=== PATIENT | female | born 1945 | race Caucasian/White ===

== ENCOUNTER → 2016-07-16 | Outpatient (CLI) | payer BC ==
[2016-07-16 10:33] LABS: BLOOD UREA NITROGEN 20 mg/dl (7-18); BUN/CREATININE RATIO 23.4 (10-20); CALCIUM 9.2 mg/dl (8.5-10.1); CARBON DIOXIDE 24 mmol/L (21-32); CHLORIDE 106 mmol/L (98-107); CREATININE 0.86 mg/dl (0.60-1.20); GLUCOSE 93 mg/dl (70-99); POTASSIUM 3.9 mmol/L (3.5-5.1); SODIUM 140 mmol/L (136-145)
[2016-07-16 10:37] LABS: CHOLESTEROL 239 mg/dl (0-200); HDL CHOLESTEROL 81 mg/dl; LDL CHOLESTEROL CALCULATED 139 mg/dl; TRIGLYCERIDES 96 mg/dl (0-150); VERY LOW DENSITY LIPOPROT CALC 19 mg/dl
== END | disposition home or self-care (01) ==
LOC: C.LAB1850 08:52
PROVIDERS: ATTEND Family Medicine
DX: E88.81 Metabolic syndrome and other insulin resistance (principal); I10 Essential (primary) hypertension; E55.9 Vitamin D deficiency, unspecified; Z11.59 Encounter for screening for other viral diseases

== ENCOUNTER → 2017-08-04 | Outpatient (CLI) | payer BC ==
[2017-08-04 11:06] LABS: BLOOD UREA NITROGEN 25 mg/dl (7-18); CALCIUM 9.4 mg/dl (8.5-10.1); CARBON DIOXIDE 25 mmol/L (21-32); GLUCOSE 92 mg/dl (70-99); POTASSIUM 3.9 mmol/L (3.5-5.1); SODIUM 137 mmol/L (136-145)
[2017-08-04 11:10] LABS: ALT/SGPT 17 U/L (12-78); CHOLESTEROL 246 mg/dl (0-200); LDL CHOLESTEROL CALCULATED 160 mg/dl
[2017-08-04 12:46] LABS: HEMOGLOBIN A1C 5.3 % (4.5-5.6)
== END | disposition home or self-care (01) ==
LOC: C.LAB1850 09:14
PROVIDERS: ATTEND Family Medicine
DX: E78.5 Hyperlipidemia, unspecified (principal); E88.81 Metabolic syndrome and other insulin resistance; I10 Essential (primary) hypertension

== ENCOUNTER → 2018-02-03 | Outpatient (CLI) | payer BC ==
[2018-02-03 10:41] LABS: ALT/SGPT 19 U/L (12-78); BLOOD UREA NITROGEN 24 mg/dl (7-18); CALCIUM 9.1 mg/dl (8.5-10.1); CARBON DIOXIDE 22 mmol/L (21-32); CHOLESTEROL 206 mg/dl (0-200); CREATININE 0.86 mg/dl (0.60-1.20); GLUCOSE 94 mg/dl (70-99); LDL CHOLESTEROL CALCULATED 122 mg/dl; SODIUM 140 mmol/L (136-145)
[2018-02-03 10:43] LABS: HEMOGLOBIN A1C 5.4 % (4.5-5.6)
== END | disposition home or self-care (01) ==
LOC: C.LAB1850 09:03
PROVIDERS: ATTEND Family Medicine
DX: E88.81 Metabolic syndrome and other insulin resistance (principal); I10 Essential (primary) hypertension; E78.5 Hyperlipidemia, unspecified; E55.9 Vitamin D deficiency, unspecified

== ENCOUNTER → 2018-02-07 | Outpatient (CLI) | payer BC | END | disposition home or self-care (01) | LOC: C.LABSPEC 11:36 | PROVIDERS: ATTEND Family Medicine | DX: R35.0 Frequency of micturition (principal) ==

== ENCOUNTER → 2018-02-15 | Outpatient (CLI) | payer BC | END | disposition home or self-care (01) | LOC: C.MAMM 08:49 | PROVIDERS: ATTEND Family Medicine | DX: Z78.0 Asymptomatic menopausal state (principal) ==

== ENCOUNTER 2020-12-13 08:51 | Observation (INO) ==
--- NOTE | 2020-11-22 10:09 | PAT Medication Instructions ---
Medication Instructions Date of Service November 22, 2020 Home Medications Medication Instructions Recorded metformin 500 mg tablet 500 mg PO BID #180 tab 03/26/20 calcium carbonate 500 mg (1,250 mg)-vitamin D3 400 unit tablet 1 tab PO BID cholecalciferol (vitamin D3) 125 mcg (5,000 unit) tablet 5,000 units PO QAM metformin 500 mg tablet 500 mg PO BID acetaminophen [Tylenol Extra Strength] 1,000 mg PO Q6H PRN atenolol 50 mg PO QAM lisinopril 40 mg PO QAM naproxen sodium [Aleve] 220 mg PO Q8H PRN ASK your surgeon for instructions naproxen sodium [Aleve] 220 mg PO Q8H PRN DO NOT take the morning of surgery calcium carbonate 500 mg (1,250 mg)-vitamin D3 400 unit tablet 1 tab PO BID cholecalciferol (vitamin D3) 125 mcg (5,000 unit) tablet 5,000 units PO QAM metformin 500 mg tablet 500 mg PO BID lisinopril 40 mg PO QAM Take morning of surgery With a small sip of water, OTHERWISE NOTHING TO EAT OR DRINK AFTER MIDNIGHT: acetaminophen [Tylenol Extra Strength] 1,000 mg PO Q6H PRN(okay to take up to 4 hours prior to surgery if needed) atenolol 50 mg PO QAM Take evening before surgery calcium carbonate 500 mg (1,250 mg)-vitamin D3 400 unit tablet 1 tab PO BID metformin 500 mg tablet 500 mg PO BID acetaminophen [Tylenol Extra Strength] 1,000 mg PO Q6H PRN (if needed) Other Notes If you have any questions please call us at [phone] or [phone] or [phone] or [phone]
--- NOTE | 2020-11-25 09:04 | Anesthesiology Consultation ---
Date of Service November 25, 2020 Assessment & Plan (1) Encounter for pre-operative examination: - COVID screening: Per assessment on 11/25: Travel screen negative, no known COVID-19 positive contacts or current COVID-19 related symptoms. Patient fully vaccinated. Surgeon arranging preop COVID testing. Awaiting results. - Possible difficult intubation: due to anatomy Chart Review Chart Review: Acceptable Risk for Surgery and Patient seen in Pre Admission Testing Teaching & Discussion Pre-Anesthesia Teaching/Discussion Notes: Instructed NPO after midnight before surgery,except medications with 15 cc of water. Medication instructions provided according to the PAT guidelines. History Surgery Operation Date: 12/13/20 13:00 Proposed Procedures p Right Total Knee Replacement(Right) - Rigo Mo, Height/Weight Height: 5 ft 3 in Weight: 88.4 kg Allergies Allergy/AdvReac Type Severity Reaction Status Date / Time Sulfa (Sulfonamide Allergy Unknown Hives Verified 11/20/20 10:55 Antibiotics) triamterene Allergy Unknown Unknown Verified 11/20/20 10:55 hydrochlorothiazide AdvReac Unknown Disorientat Verified 11/25/20 09:03 [From Dyazide] ion Medications Home Medications Medication Instructions Recorded Confirmed Last Taken calcium carbonate 500 mg (1,250 1 tab PO BID tab 03/08/19 11/20/20 Unknown mg)-vitamin D3 400 unit tablet cholecalciferol (vitamin D3) 125 5,000 units PO QAM tab 03/08/19 11/20/20 Unknown mcg (5,000 unit) tablet metformin 500 mg tablet 500 mg PO BID #180 tab 03/26/20 11/20/20 Unknown acetaminophen [Tylenol Extra 1,000 mg PO Q6H PRN 11/20/20 11/20/20 Unknown Strength] atenolol 50 mg PO QAM 11/20/20 11/20/20 Unknown lisinopril 40 mg PO QAM 11/20/20 11/20/20 Unknown naproxen sodium [Aleve] 220 mg PO Q8H PRN 11/20/20 11/20/20 Unknown Past Medical History Medical History Arthritis Cancer Right breast (1991) DVT (deep venous thrombosis) S/P childbirth 50 years ago, no issues since Dysmetabolic syndrome X Reason for Metformin per PCP Hypertension Obesity Exercise / Class Metabolic Activity II 4-5 Yardwork/Stairs/Walk up hill (one flight of stairs (no chest pain, no sob)) Past Family History Family History Mother Cardiac disorder Myocardial infarction Father Myocardial infarction Sister Hypertension Denies family history of Colon cancer Ovarian cancer Prostate cancer Breast cancer Past Surgical History Surgical History H/O abdominal hysterectomy H/O lumpectomy History of hip replacement R/L (x5 total procedures) History of lumpectomy of right breast Hx of appendectomy Hx of tonsillectomy Hx of total knee arthroplasty Left Past Anesthesia History No Hx of Anesthesia Complications and No Family Hx of Anesthesia Complications History of PONV No Hx of PONV and No Hx of Motion Sickness Social History Smoking Status: Never smoker Do You Dip or Chew Tobacco: No Hx Alcohol Use: No Hx Substance Use: No Review of Systems Patient denies chest pain, shortness of breath, dyspnea on exertion, fever, chills, cough, wheezing, palpitations. Physical Exam Vital Signs VITALS BP 179/90 > 148/84 on manual recheck. Patient states BP typically in the range of 130s/80s. Advised to monitor and contact PCP if persistently elevated. P 64 TEMP 98.0 SP02 97%RA RESP 16 PHYSICAL Full cervical extension range of motion. Full TMJ range of motion. TMD 2 finger breaths (small chin) Mallampati Score 4 (small oral opening) Dentition: intact, several crowns Lungs: clear throughout to auscultation Cardiac: regular rate and rhythm with occasional extra beat, no murmurs noted Spine: normal Carotid arteries: negative bruit Extremities: no edema Testing Laboratory Results 11/25/20 09:37 11/25/20 09:37 PT 9.9 Seconds (9.0-12.0) 11/25/20 09:37 INR 1.0 (0.9-1.1) 11/25/20 09:37 APTT 22.5 Seconds (21.0-31.0) 11/25/20 09:37 Blood Type A Positive 11/25/20 09:37 Antibody Screen NEGATIVE 11/25/20 09:37 Electrocardiogram Date: 11/25/20 Normal sinus rhythm at 75 bpm. LAD. Moderate voltage criteria for LVH, may be normal variant. Nonspecific ST abnormality. No significant change compared to 11/20/2005 per reports analysis manager review. Chest X-Ray Date: 11/25/20 FINDINGS: PA and lateral chest radiographs are compared to study dated 11/20/2005. The cardiomediastinal silhouette is unremarkable noting atherosclerotic calcification of the thoracic aorta. There is elevation of the right hemidiaphragm with associated right basilar atelectasis. Chronic interstitial thickening is similar to previous. No airspace consolidation or pleural effusion is identified. There is no pneumothorax. The skeletal structures are osteopenic. There are healed right-sided rib fractures. Degenerative change is noted in the shoulders and thoracic spine. Surgical clips are noted in the right axilla. IMPRESSION: No active disease in the chest.
[2020-11-25 10:34] LABS: Basophils # (auto) 0.02 K/uL (0-0.2); Basophils % (auto) 0.3 %; Eosinophils # (auto) 0.09 K/uL (0-0.5); Eosinophils % (auto) 1.2 %; Hematocrit (blood only) 36.8 % (37-47); Hemoglobin 12.2 g/dL (12.0-16.0); Immature Granulocytes # (auto) 0.01 K/uL (0.00-0.02); Immature Granulocytes % (auto) 0.1 %; Lymphocytes # (auto) 1.76 K/uL (1.2-3.4); Lymphocytes % (auto) 22.7 %; Mean Corpuscular Hemoglobin 31.6 pg (25-34); Mean Corpuscular Hgb Conc 33.2 g/dL (32-36); Mean Corpuscular Volume 95.3 fL (80-100); Mean Platelet Volume 11.8 fL (7.4-10.4); Monocytes % (auto) 5.2 %; Neutrophils # (auto) 5.47 K/uL (1.4-6.5); Neutrophils % (auto) 70.5 %; Platelet Count 189 K/uL (130-400); RDW Coefficient of Variation 13.7 % (11.5-14.5); RDW Standard Deviation 46.7 fL (36.4-46.3); Red Blood Count 3.86 M/uL (4.2-5.4); White Blood Count 7.75 K/uL (4.8-10.8)
[2020-11-25 10:42] LABS: Partial Thromboplastin Ratio 0.9; Partial Thromboplastin Time 22.5 Seconds (21.0-31.0); Prothrombin Time 9.9 Seconds (9.0-12.0)
--- NOTE | 2020-11-25 11:01 | XRay Report ---
TWO VIEW CHEST CLINICAL HISTORY: Preoperative examination. Reported history of hypertension. FINDINGS: PA and lateral chest radiographs are compared to study dated 11/20/2005. The cardiomediastin al silhouette is unremarkable noting atherosclerotic calcification of the thoracic aorta. There is el evation of the right hemidiaphragm with associated right basilar atelectasis. Chronic interstitial th ickening is similar to previous. No airspace consolidation or pleural effusion is identified. There i s no pneumothorax. The skeletal structures are osteopenic. There are healed right-sided rib fractures . Degenerative change is noted in the shoulders and thoracic spine. Surgical clips are noted in the r ight axilla. IMPRESSION: No active disease in the chest. ACT 112: Negative or not required by law. Electronically signed by: José Ghotra M.D. 11/25/2020 11:00 AM
[2020-11-25 11:27] LABS: BUN Creatinine Ratio 20.4 (10-20); Calcium 9.2 mg/dl (8.5-10.1); Creatinine Clr Calc Pharmacy 51.8 ml/min; Est GFR (African American) 64.6 ml/min; Est GFR (Non-African American) 55.7 ml/min; Potassium 3.8 mmol/L (3.5-5.1)
--- NOTE | 2020-11-25 18:01 | Electrocardiogram Report ---
Test Reason : Blood Pressure : / mmHG Vent. Rate : 075 BPM Atrial Rate : 075 BPM P-R Int : 140 ms QRS Dur : 090 ms QT Int : 428 ms P-R-T Axes : 054 -34 045 degrees QTc Int : 477 ms Normal sinus rhythm Left axis deviation Moderate voltage criteria for LVH, may be normal variant Nonspecific ST abnormality Abnormal ECG When compared with ECG of 20-NOV-2005 13:08, No significant change was found Confirmed by Jose Ramon Lau ([id number]) on 11/25/2020 6:01:28 PM Referred By: Rigo Mo Confirmed By:Filiberto Lau
--- NOTE | 2020-12-12 07:04 | History & Physical Report ---
Date of Service December 12, 2020 Assessment & Plan (1) Osteoarthritis of right knee: We will proceed with a right total knee arthroplasty. Postoperatively she will be kept overnight in the hospital for postoperative medical management. She will be started on aspirin for DVT prophylaxis. She plans to use energy physical therapy upon discharge. History of Present Illness Chief Complaint: Osteoarthritis of the right knee. Primary Care Provider: Antonia Sue MD Mell is a pleasant 74-year-old female who is been ill with a several year h istory of increasing right knee pain. She ambulates with a cane and a very antalgic gait because of her knee. She has a history of 5 hip procedures done on both hips. She has a history of a left knee replacement done by Dr. Heredia in 2005 and has done very well with that. Unfortunately her right knee is really bothering her. X-rays show advanced osteoarthritis of the right knee. After failing conservative treatment, she has elected to proceed with a right total knee arthroplasty.. Allergies Allergy/AdvReac Type Severity Reaction Status Date / Time Sulfa (Sulfonamide Allergy Unknown Hives Verified 11/20/20 10:55 Antibiotics) triamterene Allergy Unknown Unknown Verified 11/20/20 10:55 hydrochlorothiazide AdvReac Unknown Disorientat Verified 11/25/20 09:03 [From Dyazide] ion Home Medications Medication Instructions Recorded Confirmed Type calcium carbonate 500 mg (1,250 1 tab PO BID tab 03/08/19 11/20/20 History mg)-vitamin D3 400 unit tablet cholecalciferol (vitamin D3) 125 5,000 units PO QAM tab 03/08/19 11/20/20 History mcg (5,000 unit) tablet metformin 500 mg tablet 500 mg PO BID #180 tab 03/26/20 11/20/20 Rx acetaminophen [Tylenol Extra 1,000 mg PO Q6H PRN 11/20/20 11/20/20 History Strength] atenolol 50 mg PO QAM 11/20/20 11/20/20 History lisinopril 40 mg PO QAM 11/20/20 11/20/20 History naproxen sodium [Aleve] 220 mg PO Q8H PRN 11/20/20 11/20/20 History Past Med/Surg History Medical History Arthritis Cancer Right breast (1991) DVT (deep venous thrombosis) S/P childbirth 50 years ago, no issues since Dysmetabolic syndrome X Reason for Metformin per PCP Hypertension Obesity Surgical History H/O abdominal hysterectomy H/O lumpectomy History of hip replacement R/L (x5 total procedures) History of lumpectomy of right breast Hx of appendectomy Hx of tonsillectomy Hx of total knee arthroplasty Left Family History Mother Cardiac disorder Myocardial infarction Father Myocardial infarction Sister Hypertension Denies family history of Colon cancer Ovarian cancer Prostate cancer Breast cancer Social History Smoking Status: Never smoker Second Hand Exposure: No; Hx Alcohol Use: No Hx Substance Use: No Preferred Language: Congolese Communication Ability: Effective Visual Impairment: No Limitations Hearing Ability: Normal Yarder Boss Required: No Beliefs That Will Affect Care: None marital status: Current Living Situation: Spouse current occupational status: retired Feels Safe at Home: Yes Childhood Exposure to Second-Hand Smoke: No Dental Care, Regularly: Yes Physical Activity Frequency: Does not Exercise Physical Activity Frequency Comment: Limited by physical condition Seatbelt Use: always Sunscreen Use: No Assistive Devices: Cane and Glasses Review of Systems All systems reviewed & are unremarkable except as noted in HPI & below. Physical Exam On physical examination of the right knee, she has a slight varus deformity. She is a very antalgic gait. She has range of motion from 10 to 90 degrees. She has pain with range of motion and pain over the distal femoral condyle.. Constitutional WD/WN, vitals as above Eyes PERRL, conjunctivae normal, anicteric sclerae ENMT external ear and nose normal, oropharynx normal Neck trachea midline, no thyromegaly Respiratory normal respiratory effort Cardiovascular RRR, no murmur, no edema Gastrointestinal (Abdomen) normal bowel sounds, soft, nontender, no hepatosplenomegaly Psychiatric A+Ox3, euthymic affect Results & Data Results & Data Laboratory Results . Diagnostic Findings Do show advanced osteoarthritis with joint space narrowing, osteophyte formation, and [id number] articulation. There is destruction of the medial compartment of the joint.. PG Care Time/CCT Total # of Minutes Spent Total Time Spent with Patient: Total time spent is greater than 50% in coordination of care (as documented) at patient's floor/unit and/or counseling patient: Coding Level of Care Code None Diagnoses Osteoarthritis of right knee M17.11
[~2020-12-13 08:51] MED LIST: ACETAMINOPHEN 500 MG TAB PO SCH; FAMOTIDINE 20 MG TAB PO SCH; GABAPENTIN 300 MG CAP PO SCH; LR 500ML BOLUS, THEN 15ML/HR IV SCH; LR 60ML/HR IV SCH; ROPIVACAINE 0.5% HCL/PF 150 MG, BUPIVACAINE 0.75% MPF 20 ML, EPINEPHrine 30MG/30ML (OR ... INSTIL SCH; TRANEXAMIC ACID 1,000 MG **IV Intra-op IV SCH; ceFAZolin 2000MG 2,000 MG/15 ML SYR IV SCH; dexAMETHasone 4 MG TAB PO SCH
--- NOTE | 2020-12-13 11:14 | History & Physical Bridge Note ---
Date of Service December 13, 2020 History & Physical Bridge Note I have examined the patient, reviewed the History & Physical and in the interval since the performance of the History & Physical I have noted the following changes of clinical significance: no changes noted
[2020-12-13] MEDS ORDERED: ATROPINE SULFATE 0.1 MG/ML 10ML SYR IV PRN (11:53)
[2020-12-13] MEDS ORDERED: fentaNYL citrate 100 MCG/2 ML VIAL IV PRN (11:53)
[2020-12-13] MEDS ORDERED: ONDANSETRON INJ 2 MG/ML 2 ML VIAL IV PRN ×2 (11:53→15:48)
[2020-12-13] MEDS ORDERED: ePHEDrine sulfate 50 MG/ML AMP IV PRN (11:53)
[2020-12-13] MEDS ORDERED: ORTHO JOINT ANESTHETIC ONE (12:12)
--- NOTE | 2020-12-13 14:02 | Operative Report ---
PG Post Operative Report Pre & Post Diagnosis Operation Date: 12/13/20 11:30 Pre-Op Diagnosis: Right Knee Osteoarthritis Post-Op Diagnosis: Right Knee Osteoarthritis I identified the patient and participated in the time-out.: Yes Procedure Operation Date: 12/13/20 11:30 Actual Procedures p Right Total Knee Replacement(Right) - Rigo Mo DO Surgeon Rigo Mo DO Milker Machine Rigo Felder PAC Estimated Blood Loss 10 Findings Consistent with Post-Op Diagnosis Specimens Right femoral and tibial bone Complications none Disposition Disposition: Recovery Room Indications Mell is a pleasant 74-year-old female who is been dealing with chronic worsening right knee pain. X-rays and clinical examination have been diagnostic for advanced osteoarthritis of the right knee. After failing conservative treatment, she elected proceed with a right total knee arthroplasty. Description of Procedure Implants used: I used a Alda Persona total knee arthroplasty system with a size 7 standard PS femur, C tibia with a 30 mm stem, 29 patella, and a size 12 CPS polyethylene bearing. All components were cemented in place with Simplex HV cement. Mell arrived [facility] for the above procedure. She was seen in the preoperative holding area and the operative extremity was identified and signed. She was given a preoperative antibiotic, TXA, a spinal anesthetic and an adductor nerve block. She was taken back to the operating room and laid on the table in supine position. She was given basic sedation. The operative knee was then prepped and draped in sterile fashion. A timeout was done, and the patient and the operative extremity was properly identified. A midline incision was made directly over the patella. Dissection was taken down to the extensor mechanism. A subvastus arthrotomy was used. The medial retinaculum was released and the fat pad was mostly excised. The knee was flexed and the ACL, PCL, and meniscus were removed. A drill was sent down the center of the femoral canal followed by an intramedullary margie. Off that margie a distal femoral cutting block was placed. 9 mm was resected off the distal femur at 5 of valgus. A posterior referencing AP sizing guide was then placed on the distal femur. The femur measured to be a size 7. 2 drill holes were placed in 3 of external rotation. A 4-in-1 cutting block was then impacted into place. Anterior, posterior, and chamfer cuts were then made. The box was then resected for the posterior stabilizing component. The proximal tibia was then exposed. An external tibial alignment guide was placed. A tibial cut guide was then anchored in place and the proximal tibia was then resected. The posterior aspect of the knee was then opened up and any additional meniscus fragments and osteophytes were removed. The tibia measured to be a size C. The tibial plate was then placed in the appropriate rotation and the tibia was drilled and punched. Trial components were then placed. I used a size 12 CPS polyethylene insert. The knee was brought through a full range of motion and felt to be stable. The peg holes for the femoral component were then drilled. The patella was then everted and 9 mm was resected off the posterior aspect of the patella. The patella measured to be a size 29. 3 peg holes were then drilled. A trial patella was placed. The knee was once again brought through a full range of motion and felt to be stable. Trial components were then removed. The surrounding soft tissues were injected with 100 cc of an orthopedic pain control cocktail. All components were then cemented into place with Simplex HV cement. The final polyethylene insert was then snapped into place. Once cement was dry the tourniquet was deflated. Hemostasis was obtained. A dilute betadyne lavage was then done for 3 minutes. The joint was then irrigated with normal saline solution. The subvastus arthrotomy was then closed with #1 Vicryl suture. The skin was closed with 2-0 Vicryl, 3-0V lock suture, and genesis. A soft compressive dressing was placed. She was then transferred to a hospital bed and taken to the postanesthesia care unit in stable condition. She tolerated the procedure well. Rigo Felder PA-C, was present for the entire procedure. He was critical for patient positioning, prepping, draping, retraction exposure, wound closure and application of sterile dressing. I attest to the content of the Intraoperative Record and any orders documented therein. Any exceptions are noted below.
--- NOTE | 2020-12-13 15:15 | XRay Report ---
XR knee RT 1 or 2V routine CLINICAL HISTORY: Surgical Post Op COMPARISON: November 01, 2018 DISCUSSION: Interval placement of a prosthetic right knee joint. Subcutaneous emphysema and skin genesis are seen . Soft tissue edema is demonstrated. IMPRESSION: Postoperative changes as above. ACT 112: Negative or not required by law. The above report was generated using voice recognition software. It may contain grammatical, syntax o r spelling errors. Electronically signed by: Chelita Stoner DO 12/13/2020 3:14 PM
--- NOTE | 2020-12-13 15:18 | Anesthesiology Progress Note ---
Date of Service December 13, 2020 Anesthesia Post Procedure Vital Signs Vital Signs: Temp Pulse Pulse Resp BP Pulse Ox 12/13/20 15:10 57 L 16 142/73 H 98 12/13/20 15:00 57 L 16 139/74 98 12/13/20 14:50 64 16 148/76 H 99 12/13/20 14:40 63 12 114/82 100 12/13/20 14:30 36.4 C L 70 12 132/72 100 12/13/20 11:25 36.9 C 59 L 20 182/92 H 100 Pain Intensity Right Knee: Pain Intensity: 6 Transfer of Care Handoff Completed per policy Notes Mental Status: alert / awake / arousable and participated in evaluation Patient Amnestic to Procedure: Yes Nausea / Vomiting: adequately controlled Pain: adequately controlled Airway Patency, RR, SpO2: stable & adequate BP & HR: stable & adequate Hydration State: stable & adequate Neuraxial Anesthesia: was administered and sensory block is resolving Anesthetic Complications: no major complications apparent and Pt Satisfied with anesthetic care
[2020-12-13] MEDS ORDERED: HYDROmorphone INJ 0.5 MG/0.5 ML SYR IV PRN (15:48)
[2020-12-13] MEDS ORDERED: NALOXONE HCL 0.4 MG/1 ML VIAL/CARP IV PRN (15:48)
[2020-12-13] MEDS ORDERED: oxyCODONE HCL IR 5 MG TAB (IMMEDIATE RELEASE) PO PRN (15:48)
[2020-12-13] MEDS ORDERED: METOCLOPRAMIDE HCL INJ 5 MG/ML 2 ML VIAL IV PRN (15:48)
[2020-12-13] MEDS ORDERED: bisacodyL 10 MG SUPP PR PRN (15:48)
[2020-12-13] MEDS ORDERED: MAGNESIUM HYDROXIDE SUSP 30 ML UDC PO PRN (15:48)
[2020-12-13] MEDS: SODIUM CHLORIDE 0.9% 1000ML 1,000 ML IV SCH (17:25)
[2020-12-13] MEDS: ceFAZolin 2000MG 2,000 MG/15 ML SYR IV SCH (20:52)
[2020-12-13] MEDS: KETOROLAC TROMETHAMINE 15 MG/ML VIAL IV SCH (20:52)
[2020-12-13] MEDS: SENNA 8.6 MG TAB PO SCH (20:53)
[2020-12-13] MEDS: ASPIRIN 81 MG ECTAB PO SCH (20:53)
[2020-12-13] MEDS: DOCUSATE SODIUM 100 MG CAP PO SCH (20:53)
[2020-12-13] MEDS: ACETAMINOPHEN 500 MG TAB PO SCH (22:50)
[2020-12-14] MEDS: SODIUM CHLORIDE 0.9% 1000ML 1,000 ML IV SCH (01:53)
[2020-12-14] MEDS: KETOROLAC TROMETHAMINE 15 MG/ML VIAL IV SCH ×4 (02:57→21:08)
[2020-12-14] MEDS: ceFAZolin 2000MG 2,000 MG/15 ML SYR IV SCH (03:00)
[2020-12-14] MEDS: ACETAMINOPHEN 500 MG TAB PO SCH ×3 (05:02→21:10)
[2020-12-14] MEDS ORDERED: dexAMETHasone 4 MG TAB PO SCH (08:00)
--- NOTE | 2020-12-14 08:34 | Orthopedic Progress Note ---
Date of Service December 14, 2020 Assessment & Plan (1) Status post right knee replacement: Overall she is doing fairly well. She is not having much pain in the right knee. She will be seen by physical therapy today for ambulation and range of motion exercises. She is on aspirin for DVT prophylaxis. The dressing can be changed today. We will see how she does with physical therapy. She says she lives with her but her 's not of great health. If she does well today and she feels strong enough to go home that she can be discharged home today. Otherwise, we should keep her until tomorrow. Jojo Monte was seen and examined at bedside this morning. Overall she is doing fairly well. She is not having much pain in the right knee. She has been up and ambulating to the bathroom. She has no complaints.. Review of Systems All systems reviewed & are unremarkable except as noted in HPI & below. Physical Exam On physical examination of the right knee, she has active dorsiflexion plantarflexion of the right ankle. Her leg is out full extension. She is unable to do a straight leg raise yet.. Results & Data Results & Data Laboratory Results . Diagnostic Findings Postoperative x-rays of the right knee show the prosthesis to be in anatomic alignment without any evidence of fracture, dislocation, or loosening. PG Care Time/CCT Total # of Minutes Spent Total Time Spent with Patient: Total time spent is greater than 50% in coordination of care (as documented) at patient's floor/unit and/or counseling patient: Coding Level of Care Code 90559 Post Operative Follow-Up Diagnoses Status post right knee replacement Z96.651
[2020-12-14] MEDS: ATENOLOL 50 MG TABLET PO SCH (08:48)
[2020-12-14] MEDS: MULTIVITAMIN TAB PO SCH (08:48)
[2020-12-14] MEDS: lisinopril 40 MG TAB PO SCH (08:48)
[2020-12-14] MEDS: ASPIRIN 81 MG ECTAB PO SCH ×2 (08:48→21:09)
[2020-12-14] MEDS: DOCUSATE SODIUM 100 MG CAP PO SCH ×2 (08:48→21:09)
[2020-12-14] MEDS: SENNA 8.6 MG TAB PO SCH (21:09)
[2020-12-15] MEDS: KETOROLAC TROMETHAMINE 15 MG/ML VIAL IV SCH ×2 (01:28→07:46)
[2020-12-15] MEDS: ACETAMINOPHEN 500 MG TAB PO SCH (06:18)
--- NOTE | 2020-12-15 07:29 | Orthopedic Progress Note ---
Date of Service December 15, 2020 Assessment & Plan (1) Status post right knee replacement: Overall she is doing well. She feels like she has a little bit more stability today. She is on aspirin for DVT prophylaxis. She will be seen by physical therapy today for ambulation and range of motion exercises. She can be discharged home later today. She will follow with orthopedics in 2 weeks. Jojo Monte was seen and examined at bedside this morning. Overall she is feeling a little bit better. She is some soreness in her knee but she feels more stable. She is hoping to go home today. She has no new complaints.. Review of Systems All systems reviewed & are unremarkable except as noted in HPI & below. Physical Exam Physical examination of the right knee, the dressing is clean and dry. She has her leg out in full extension. She is neurovascular intact.. Results & Data Results & Data Laboratory Results . Diagnostic Findings . PG Care Time/CCT Total # of Minutes Spent Total Time Spent with Patient: Total time spent is greater than 50% in coordination of care (as documented) at patient's floor/unit and/or counseling patient: Coding Level of Care Code 06505 Post Operative Follow-Up Diagnoses Status post right knee replacement Z96.651
--- NOTE | 2020-12-15 07:30 | Discharge Summary ---
Date of Service December 15, 2020 Admission HPI (Per Admitting) Mell is a pleasant 74-year-old female who is been ill with a several year history of increasing right knee pain. She ambulates with a cane and a very antalgic gait because of her knee. She has a history of 5 hip procedures done on both hips. She has a history of a left knee replacement done by Dr. Heredia in 2005 and has done very well with that. Unfortunately her right knee is really bothering her. X-rays show advanced osteoarthritis of the right knee. After failing conservative treatment, she has elected to proceed with a right total knee arthroplasty.. Admission Exam (Per Admitting) On physical examination of the right knee, she has a slight varus deformity. She is a very antalgic gait. She has range of motion from 10 to 90 degrees. She has pain with range of motion and pain over the distal femoral condyle.. Principal Diagnosis Same as "Discharge Diagnosis" noted below under Discharge Instructions. Discharge Exam Physical examination of the right knee, the dressing is clean and dry. She has her leg out in full extension. She is neurovascular intact.. Discharge Data Procedures Performed Operation Date: 12/13/20 11:30 Actual Procedures p Right Total Knee Replacement(Right) - Rigo Mo DO Ordered Studies 12/13/20 05:00 US - OR guided needle placemen Routine Hospital Course (1) Status post right knee replacement: On December 13, 2020 Ramandeep arrived at [facility] and underwent a right knee replacement without complication. She had a spinal anesthetic. Postoperatively she was started on aspirin for DVT prophylaxis and transferred to the general orthopedic floors. Her hospital course was uneventful. On postop day #1 her vital signs were stable and her pain was well controlled. She was able to participate well with physical therapy doing ambulation and range of motion exercises. She was a little bit lightheaded and a little bit tired. She did not feel stable going home on day 1. On postop day #2 she was feeling better. She once again participated well with physical therapy. She was then discharged home. She will follow-up with orthopedics in 2 weeks. PG Care Time/CCT Total # of Minutes Spent Total Time Spent with Patient: Total time spent is greater than 50% in coordination of care (as documented) at patient's floor/unit and/or counseling patient: Discharge Plan Discharge Items Patient Disposition: Home - Home Health Services Reason For Visit: Right Knee Osteoarthritis Discharge Diagnosis: Right knee replacement Activity: As commented below Non-emergency contact: Surgeon Call non-emergency contact if: your wound has increased redness and your wound has increased drainage Follow-up/Referrals: Antonia Sue MD [Primary Care Provider] - Diet: Regular Addtl Attending Provider Instructions: Activity and Therapy Recommendations: * If you are using [facility] then therapy will be provided at your home until they feel you have accomplished all of your goals. * If you are using [facility] then Physical Therapy will be provided until they feel you are ready to start Outpatient Physical Therapy. * If you are not using home therapy then Outpatient Physical Therapy should start about 3-5 days from your day of surgery. Therapy will last about 6-10 weeks * It is important not to put a pillow under your knee when you are relaxing or sleeping. It is just as important to make sure you are getting your knee perfectly straight as it is to regain your knee bend. * You were shown a series of exercises in the hospital. Do these exercises three times each day including the exercises you were shown in physical therapy. * Get up and walk several times each day. For the first four weeks, try not to stand or walk for more than one hour at a time. If you do stand or walk for more than one hour, you will not hurt anything, but your leg will likely swell. * As you feel comfortable, you may change from the walker or crutches to a cane and then to independent walking. Medications: * Narcotic You will likely be sent home from the hospital with a prescription for the narcotic pain medication that worked best throughout your stay. * Aspirin Most patients will be required to take Aspirin 81mg twice a day for 6 weeks after surgery. This is obtained [id number] and a prescription is not necessary. * Other medications may be prescribed for specific circumstances. If you have any questions, please call the office at . * Resume previous home medications unless otherwise instructed TEDs/Elastic Stockings: The white elastic stockings help limit swelling and prevent blood clots from forming in your legs.~ The more you wear them, the more they work. Wear them for six weeks. Dressing Care: The dressing can be changed after physical therapy on postop day #1. Daily dry dressing changes for a few days, especially if the incision is still draining some. If the incision is not draining then you may leave the genesis open to air. If there is a little bit of drainage or if the genesis are getting stuck on your clothing then cover the incision with a dry dressing. The genesis will be removed at your 2 week follow-up appointment. Showering: You may shower 5 days from the day of surgery as long as the incision is no longer draining. You may shower with the genesis exposed. Let soapy water run over the genesis and pat them dry. Do not scrub or soak the incision. Things To Watch For: * Drainage from the incision site that occurs more than one week after your surgery. * Increased redness at the incision site. * Fever above 102 degrees Fahrenheit. * Unusual chest pain or shortness of breath. * Call [facility] at with any of the above problems Follow-Up Visit: Follow-up with Dr. Mo's PA (Rigo Felder) 2-3 weeks after your day of surgery. He will remove your genesis and answer any questions. If you have any additional questions or concerns, Dr Mo is usually in the office at the same time and will be available An appointment was probably scheduled when you signed-up for surgery in the office. If you have any questions call Office Instructions: More detailed instructions as well as Frequently Asked Questions were provided in a folder by our office when you signed-up for surgery. Please review these instructions when you get home. If you have any further questions or concerns, please feel free to call the office at [phone] Pending Studies at Discharge: No Stand-Alone Forms: My [facility] [employer], Smoking Cessation Medications and DC Order Prescriptions: New oxycodone 5 mg Tablet 5 mg PO Q4H PRN (Reason: pain) Qty: 40 RF: 0 aspirin 81 mg Tablet,Delayed Release (Dr/Ec) 81 mg PO BID 42 Days Qty: 84 RF: 0 Continued cholecalciferol (vitamin D3) 5,000 unit tablet 5,000 units PO QAM RF: 0 calcium carbonate-vitamin D3 500 mg(1,250mg) -400 unit tablet 1 tab PO BID RF: 0 metformin 500 mg tablet 500 mg PO BID Qty: 180 RF: 3 lisinopril 40 mg tablet 40 mg PO QAM RF: 0 atenolol 50 mg tablet 50 mg PO QAM RF: 0 naproxen sodium [Aleve] 220 mg Tablet 220 mg PO Q8H PRN (Reason: Pain) RF: 0 acetaminophen [Tylenol Extra Strength] 500 mg Capsule 1,000 mg PO Q6H PRN (Reason: Pain) RF: 0 Discharge Orders: Discharge Order (Routine); Ordered 12/15/20 Ordered By: Rigo Mo Admission Data Admit Date/Time: 12/13/20 14:34 Attending Provider: Rigo Mo Admit Provider: Rigo Mo Primary Care Provider: Antonia Seu
[2020-12-15] MEDS: ASPIRIN 81 MG ECTAB PO SCH (09:16)
[2020-12-15] MEDS: lisinopril 40 MG TAB PO SCH (09:17)
[2020-12-15] MEDS: MULTIVITAMIN TAB PO SCH (09:17)
[2020-12-15] MEDS: ATENOLOL 50 MG TABLET PO SCH ×2 (09:23→09:24)
[2020-12-15] MEDS: DOCUSATE SODIUM 100 MG CAP PO SCH (09:23)
== END 2020-12-15 11:48 | disposition home health service (06) ==
LOC: PAT 08:51 → ASU 08:51 → 3E 08:51

== ENCOUNTER 2022-06-24 09:20 | Inpatient (IN) ==
[2022-06-24] MEDS ORDERED: ONDANSETRON INJ 2 MG/ML 2 ML VIAL IV STA (09:41)
[2022-06-24] MEDS ORDERED: SODIUM CHLORIDE 0.9% 500 ML IV STA (09:41)
--- NOTE | 2022-06-24 09:53 | Emergency Department Note ---
Impression & Plan Compression fx, lumbar spine, Back pain ED Provider Note NAME: KAREN MITCHELL AGE: 76 SEX: F : 1945 ARRIVES VIA: Walk-In INFORMANT: Patient, ED PROVIDER(S): Evangelista Garza DO CHIEF COMPLAINT: Flank pain HPI: The patient is a 76-year-old female who presented to the emergency department for an evaluation of flank pain. The patient states that she has had right-sided lower back pain over the course the last few weeks. She was seen by her family doctor initially and diagnosed with a urinary tract infection. She was treated with Cipro. The patient states that the urinary symptoms including frequency and dysuria resolved but the patient continued to have right-sided back pain. The pain became moderate to severe. She was referred to the emergency department for further evaluation. The patient does complain of dark urine. ROS: See above HPI for pertinent positives & negatives. A total of 10 systems reviewed and were otherwise negative. PAST MEDICAL HISTORY: See Below PAST SURGICAL HISTORY: See Below FAMILY HISTORY: See Below SOCIAL HISTORY: See Below HOME MEDICATIONS: See Below ALLERGIES: See Below VITALS: See Below PHYSICAL EXAMINATION: GENERAL: The patient is awake and alert. The patient is very anxious appearing and appears to be uncomfortable. EYES: The conjunctivae are clear. The pupils are round and reactive. EARS, NOSE, MOUTH AND THROAT: The nose is without any evidence of any deformity. NECK: The neck is nontender and supple. RESPIRATORY: Normal respiratory effort is noted there is no evidence of wheezing rhonchi or rales CARDIOVASCULAR: Regular rate and rhythm noted there no murmurs rubs or gallops normal S1 normal S2. GASTROINTESTINAL: There is right-sided abdominal tenderness to palpation. There is no guarding rigidity. BACK: Lower lumbar tenderness was noted to palpation. Right CVA tenderness was noted that was mild. MUSCULOSKELETAL/EXTREMITIES: There is no evidence of gross deformity full range of motion is noted in the hips and shoulders. SKIN: There is no obvious evidence of any rash. There are no petechiae, pallor or cyanosis noted. NEUROLOGIC: Patient is awake alert and oriented x3 strength is symmetric patellar reflexes are 2+ bilaterally MEDICAL DECISION MAKING: The patient is a 76-year-old female who presented to the emergency department for an evaluation of back pain. The patient was recently treated for urinary tract infection. She had a return of her back pain which she thought could be worsening of the urinary tract infection. Urinalysis was not consistent with ac [place] infection. Initially given the degree of pain I thought she may have had a kidney stone. She was treated with IV fluids and IV pain medication. She was reevaluated multiple times. On reevaluation she was only minimally improved. I discussed the patient's condition with the on-call [facility] hospitalist. She does appear to have a new lumbar compression fracture which could be the cause of her pain. They have agreed to evaluate the patient in the emergency department for further management and disposition. Triage Nursing notes reviewed. Prior medical records reviewed Vital Signs: reviewed and remarkable for elevated blood pressure and ta chycardia. Differential diagnosis: Renal colic, UTI, appendicitis, diverticulitis, mesenteric ischemia, aortic pathology, infections, inflammatory bowel disease, PUD, biliary pathology, as well as other pathologies. ER treatment provided: See below Diagnostics interpreted by me: ECG: none Cardiac Monitoring: An order was placed for continuous cardiac monitoring. The monitor shows a rate of 106 bpm with sinus tachycardia. Laboratory studies: As stated above and show below. Imaging studies: See below Consultation(s): I discussed this case with Dr. Moreno. He agreed to evaluate the patient in the emergency department for further management and disposition. Past Med/Surg History Medical History Arthritis Cancer Right breast (1991) DVT (deep venous thrombosis) S/P childbirth 50 years ago, no issues since Dysmetabolic syndrome X Reason for Metformin per PCP Hypertension Obesity Surgical History H/O abdominal hysterectomy H/O lumpectomy History of hip replacement R/L (x5 total procedures) History of lumpectomy of right breast Hx of appendectomy Hx of tonsillectomy Hx of total knee arthroplasty Left Family History Mother Cardiac disorder Myocardial infarction Father Myocardial infarction Sister Hypertension Denies family history of Colon cancer Ovarian cancer Prostate cancer Breast cancer Social History Smoking Status: Never smoker Second Hand Exposure: No; Hx Alcohol Use: No Hx Substance Use: No Preferred Language: Sammarinese Communication Ability: Effective Visual Impairment: No Limitations Hearing Ability: Normal Sales Enablement Analyst Required: No Beliefs That Will Affect Care: None marital status: Current Living Situation: Spouse current occupational status: retired How many Children do You have: 2 Feels Safe at Home: Yes Childhood Exposure to Second-Hand Smoke: No caffeine: Yes during the past year weight has: remained stable Dental Care, Regularly: Yes Physical Activity Frequency: Does not Exercise Physical Activity Frequency Comment: Limited by physical condition Seatbelt Use: always Sunscreen Use: No Assistive Devices: Cane and Glasses Allergies Allergies Allergy/AdvReac Type Severity Reaction Status Date / Time Sulfa (Sulfonamide Allergy Unknown Hives Verified 06/22/22 09:42 Antibiotics) triamterene Allergy Unknown Unknown Verified 06/22/22 09:42 hydrochlorothiazide AdvReac Unknown Disorientat Verified 06/22/22 09:42 [From Dyazide] ion Home Meds Home Medications Medication Instructions Recorded Confirmed acetaminophen 500 mg capsule 1,000 mg PO Q6H PRN Pain 11/20/20 06/24/22 metformin 500 mg tablet 500 mg PO BID 06/24/22 06/24/22 Previous Rx's Medication Instructions Recorded atenolol 50 mg tablet 50 mg PO QAM #90 tabs 03/27/22 lisinopril 40 mg tablet 40 mg PO QAM #90 tabs 03/27/22 Results & Data (ED) Vital Signs Vital Signs - 24 hr 06/24/22 09:25 06/24/22 11:22 06/24/22 11:21 Temperature 36.8 C Temperature Source Temporal Artery Scan Pulse Rate 120 H Pulse Rate [Apical] 82 Respiratory Rate 18 18 Blood Pressure 189/79 H Blood Pressure [Left Arm] 167/135 H Blood Pressure Mean 115 Blood Pressure Mean [Left Arm] 145 Pulse Oximetry 93 99 98 Oxygen Delivery Method Room Air Room Air Room Air Sepsis Recent Fever Within 48 Hours No Sepsis New/Unexplained Change in Mental Status No Sepsis Action Taken by Nursing No Action Required 06/24/22 13:00 Temperature Temperature Source Pulse Rate Pulse Rate [Apical] 106 H Respiratory Rate 18 Blood Pressure Blood Pressure [Left Arm] 163/119 H Blood Pressure Mean Blood Pressure Mean [Left Arm] 133 Pulse Oximetry 99 Oxygen Delivery Method Room Air Sepsis Recent Fever Within 48 Hours Sepsis New/Unexplained Change in Mental Status Sepsis Action Taken by Residential Medications Current Medication List: was personally reviewed by me Laboratory Data Attestation: I reviewed the patient's lab results. Result diagrams: 06/24/22 09:43 06/24/22 09:43 Lab Results 06/24/22 06/24/22 06/24/22 Range/Units 09:43 09:43 09:50 WBC 7.96 (4.8-10.8) K/ul RBC 4.04 (3.93-5.22) M/uL Hgb 13.0 (12.0-16.0) g/dl Hct 38.1 (34.1-44.9) % MCV 94.3 (80.0-100.0) fL MCH 32.2 (25.0-34.0) pg MCHC 34.1 (32.0-36.0) g/dL RDW Std Deviation 42.9 (36.4-46.3) fL RDW Coeff of Ariel 12.6 (11.5-14.5) % Plt Count 190 (130-400) K/uL MPV 11.3 (9.4-12.3) fL Immature Gran % (Auto) 0.3 % Neut % (Auto) 74.1 % Lymph % (Auto) 17.5 % Arroyo % (Auto) 6.2 % Eos % (Auto) 1.5 % Baso % (Auto) 0.4 % Neut # (Auto) 5.91 (1.4-6.5) K/uL Lymph # (Auto) 1.39 (1.2-3.4) K/uL Arroyo # (Auto) 0.49 (0.24-0.82) K/uL Eos # (Auto) 0.12 (0-0.50) K/uL Baso # (Auto) 0.03 (0-0.2) K/uL Immature Gran # (Auto) 0.02 (0.00-0.02) K/uL Sodium 137 (136-145) mmol/L Potassium 4.1 (3.5-5.1) mmol/L Chloride 103 (98-107) mmol/L Carbon Dioxide 21 (21-32) mmol/L Anion Gap 13 H (3-11) BUN 35 H (6-23) mg/dl Creatinine 1.55 H (0.6-1.2) mg/dl Est Cr Clr Drug Dosing Not Reportable Est GFR ( Amer) 37.0 ml/min Est GFR (Non-Af Amer) 32.0 ml/min BUN/Creatinine Ratio 22.6 H (10-20) Glucose 97 (70-99(Fasting)) mg/dl Calcium 10.3 H (8.5-10.1) mg/dl Total Bilirubin 0.8 (0.2-1.0) mg/dl AST 15 (13-39) U/L ALT 8 (7-52) U/L Alkaline Phosphatase 106 H (34-104) U/L Total Protein 7.9 (6.0-8.3) gm/dl Albumin 4.3 (3.4-5.0) gm/dl Globulin 3.6 (2.5-4.0) gm/dl Albumin/Globulin Ratio 1.2 (0.9-2) Lipase 42 (11-82) U/L Urine Color Yellow Urine Appearance Turbid A (Clear) Urine pH 5.0 (4.5-7.5) Ur Specific [place] 1.025 (1.000-1.030) Urine Protein 1+ H (Negative) Urine Glucose (UA) Negative (Negative) Urine Ketones Trace H (Negative) Urine Blood Negative (Negative) Urine Nitrite Negative (Negative) Urine Bilirubin Negative (Negative) Urine Urobilinogen Negative (Negative) Ur Leukocyte Esterase 1+ H (Negative) Urine WBC (Auto) 5-10 H (0-5) /hpf Urine RBC (Auto) 0-4 (0-4) /hpf U Hyaline Cast (Auto) 1-5 (0-5) /lpf U Epithel Cells (Auto) >30 H (0-5) /lpf Urine Bacteria (Auto) 2+ H (Negative) Ur Renal Epithelial Cell 0-5 (0-5) /lpf Administered Medications Morphine Sulfate (Morphine Sulfate 4 Mg/Ml 1 Ml Carp\Vial) 4 mg IV Q15M PRN PRN Reason: Pain Stop: 07/08/22 09:40 Last Admin: 06/24/22 12:59 Dose: 4 mg Documented By: Admin: 06/24/22 10:06 Dose: 4 mg Documented By: CJS Discontinued Medications Sodium Chloride (Nss) 500 mls @ 999 mls/hr IV .Q31M STA Stop: 06/24/22 10:11 Last Infusion: 06/24/22 10:47 Dose: 0 mls/hr Documented By: Admin: 06/24/22 10:06 Dose: 999 mls/hr Documented By: KAYLEE Ondansetron HCl (Ondansetron Inj 2 Mg/Ml 2 Ml Vial) 4 mg IV NOW STA Stop: 06/24/22 09:42 Last Admin: 06/24/22 10:06 Dose: 4 mg Documented By: KAYLEE Imaging Data Radiologist's Impression: Abdomen/Pelvis CT 06/24/22 09:41 CT SCAN OF THE ABDOMEN AND PELVIS WITHOUT IV CONTRAST CLINICAL HISTORY: Right flank pain. COMPARISON STUDY: Renal ultrasound dated 06/01/2018. TECHNIQUE: CT scan of the abdomen and pelvis is performed from the lung bases to the proximal femora. Images are reviewed in the axial, sagittal, and coronal planes. IV contrast was not administered for this examination. A dose lowering technique was utilized adhering to the principles of ALARA. CT DOSE: 803.64 mGycm FINDINGS: Lung bases: The heart is normal in size and without pericardial effusion. The coronary arteries are densely calcified. The lung bases are clear noting bibasilar scarring/atelectasis. A fat-containing Bochdalek hernia is seen on the right. A small hiatal hernia is noted. Liver: The unenhanced liver is normal in size, contour, and attenuation. There is no intrahepatic biliary ductal dilatation. Gallbladder: There are numerous calcified gallstones without CT evidence of acute cholecystitis. Spleen: Normal in size and attenuation. Pancreas: Unremarkable. Adrenal glands: Unremarkable. Kidneys: The unenhanced demonstrate cortical atrophy and are without hydr onephrosis. There are no renal calculi identified. There is no evidence of contour deforming renal mass lesion. Abdominal vasculature: The abdominal aorta is normal in course and caliber noting moderate atherosclerotic calcification. Bowel: There is moderate colonic diverticulosis without CT evidence of acute diverticulitis. No bowel obstruction is seen. The appendix is nonvisualized Peritoneum: There is no intraperitoneal free air or abdominal ascites. Lymphadenopathy: None. Pelvic viscera: Evaluation of the pelvis is significantly degraded by streak artifact from bilateral hip arthroplasties. The bladder and pelvic viscera cannot be evaluated. Skeletal structures: The skeletal structures are osteopenic. No lytic or blastic lesions are seen. There is an acute superior endplate compression fracture of L2 with mild loss of height and minimally retropulsed fragments. Paravertebral edema is noted. There is moderate to advanced lumbosacral spondylosis. Bilateral hip arthroplasties are in place. There are chronic/healed bilateral pubic rami fractures. IMPRESSION: 1. Acute superior endplate compression fracture of L2. 2. Cholelithiasis without CT evidence of acute cholecystitis. 3. Colonic diverticulosis without CT evidence of acute diverticulitis. 4. Additional findings as above. ACT 112: Negative or not required by law. Electronically signed by: José Ghotra M.D. 06/24/2022 10:16 AM Discharge Plan Visit Data Chief Complaint: Flank Pain Stated Complaint: SEVERE BACK PAIN ED Provider: Evangelista Garza Discharge Problem: Compression fx, lumbar spine, Back pain Patient Disposition: Being Evaluated by Hospitalist Forms Stand Alone Forms: My [facility] Prescriptions Prescriptions: No Action atenolol 50 mg tablet 50 mg PO QAM Qty: 90 3RF lisinopril 40 mg tablet 40 mg PO QAM Qty: 90 3RF acetaminophen 500 mg Capsule 1,000 mg PO Q6H PRN (Reason: Pain) metformin 500 mg tablet 500 mg PO BID Referrals Referrals: Antonia Sue MD [Primary Care Provider] -
[2022-06-24] MEDS: MoRPHine SULFATE 4 MG/ML 1 ML CARP\\VIAL IV PRN ×2 (10:06→12:59)
[2022-06-24 10:10] LABS: Basophils # (auto) 0.03 K/uL (0-0.2); Basophils % (auto) 0.4 %; Eosinophils # (auto) 0.12 K/uL (0-0.50); Eosinophils % (auto) 1.5 %; Hematocrit (blood only) 38.1 % (34.1-44.9); Immature Granulocytes # (auto) 0.02 K/uL (0.00-0.02); Immature Granulocytes % (auto) 0.3 %; Lymphocytes # (auto) 1.39 K/uL (1.2-3.4); Lymphocytes % (auto) 17.5 %; Mean Corpuscular Hemoglobin 32.2 pg (25.0-34.0); Mean Corpuscular Hgb Conc 34.1 g/dL (32.0-36.0); Mean Corpuscular Volume 94.3 fL (80.0-100.0); Mean Platelet Volume 11.3 fL (9.4-12.3); Monocytes # (auto) 0.49 K/uL (0.24-0.82); Monocytes % (auto) 6.2 %; Neutrophils # (auto) 5.91 K/uL (1.4-6.5); Neutrophils % (auto) 74.1 %; Platelet Count 190 K/uL (130-400); RDW Coefficient of Variation 12.6 % (11.5-14.5); RDW Standard Deviation 42.9 fL (36.4-46.3); Red Blood Count 4.04 M/uL (3.93-5.22); White Blood Count 7.96 K/ul (4.8-10.8)
--- NOTE | 2022-06-24 10:18 | CT Scan Report ---
CT SCAN OF THE ABDOMEN AND PELVIS WITHOUT IV CONTRAST CLINICAL HISTORY: Right flank pain. COMPARISON STUDY: Renal ultrasound dated 06/01/2018. TECHNIQUE: CT scan of the abdomen and pelvis is performed from the lung bases to the proximal femora. Images are reviewed in the axial, sagittal, and coronal planes. IV contrast was not administered for this examination. A dose lowering technique was utilized adhering to the principles of ALARA. CT DOSE: 803.64 mGycm FINDINGS: Lung bases: The heart is normal in size and without pericardial effusion. The coronary arteries are d ensely calcified. The lung bases are clear noting bibasilar scarring/atelectasis. A fat-containing Kenji chdalek hernia is seen on the right. A small hiatal hernia is noted. Liver: The unenhanced liver is normal in size, contour, and attenuation. There is no intrahepatic naina iary ductal dilatation. Gallbladder: There are numerous calcified gallstones without CT evidence of acute cholecystitis. Spleen: Normal in size and attenuation. Pancreas: Unremarkable. Adrenal glands: Unremarkable. Kidneys: The unenhanced demonstrate cortical atrophy and are without hydronephrosis. There are no diana al calculi identified. There is no evidence of contour deforming renal mass lesion. Abdominal vasculature: The abdominal aorta is normal in course and caliber noting moderate atheroscle rotic calcification. Bowel: There is moderate colonic diverticulosis without CT evidence of acute diverticulitis. No bowel obstruction is seen. The appendix is nonvisualized Peritoneum: There is no intraperitoneal free air or abdominal ascites. Lymphadenopathy: None. Pelvic viscera: Evaluation of the pelvis is significantly degraded by streak artifact from bilateral hip arthroplasties. The bladder and pelvic viscera cannot be evaluated. Skeletal structures: The skeletal structures are osteopenic. No lytic or blastic lesions are seen. Th ere is an acute superior endplate compression fracture of L2 with mild loss of height and minimally r etropulsed fragments. Paravertebral edema is noted. There is moderate to advanced lumbosacral spondyl osis. Bilateral hip arthroplasties are in place. There are chronic/healed bilateral pubic rami fractu res. IMPRESSION: 1. Acute superior endplate compression fracture of L2. 2. Cholelithiasis without CT evidence of acute cholecystitis. 3. Colonic diverticulosis without CT evidence of acute diverticulitis. 4. Additional findings as above. ACT 112: Negative or not required by law. Electronically signed by: José Ghotra M.D. 06/24/2022 10:16 AM
[2022-06-24 10:30] LABS: Alanine Aminotransferase 8 U/L (7-52); Albumin Globulin Ratio 1.2 (0.9-2); Albumin Level 4.3 gm/dl (3.4-5.0); Alkaline Phosphatase 106 U/L (34-104); Anion Gap 13 (3-11); Aspartate Aminotransferase 15 U/L (13-39); BUN Creatinine Ratio 22.6 (10-20); Bilirubin,Total 0.8 mg/dl (0.2-1.0); Blood Urea Nitrogen 35 mg/dl (6-23); Calcium 10.3 mg/dl (8.5-10.1); Carbon Dioxide 21 mmol/L (21-32); Chloride 103 mmol/L (98-107); Globulin 3.6 gm/dl (2.5-4.0); Glucose 97 mg/dl (70-99(Fasting)); Lipase 42 U/L (11-82); Potassium 4.1 mmol/L (3.5-5.1); Sodium 137 mmol/L (136-145); Total Protein 7.9 gm/dl (6.0-8.3)
[2022-06-24 10:33] LABS: Appearance Urine Turbid (Clear); Bacteria Urine Automated 2+ (Negative); Bilirubin Urine Negative (Negative); Blood Urine Negative (Negative); Color Urine Yellow; Epithelial Cell Urine Auto >30 /lpf (0-5); Glucose Urine UA Negative (Negative); Ketones Urine Trace (Negative); Leukocyte Esterase Urine 1+ (Negative); Nitrite Urine Negative (Negative); Protein Urine 1+ (Negative); Specific Gravity Urine 1.025 (1.000-1.030); Urobilinogen Urine Negative (Negative)
[2022-06-24 11:20] LABS: RBC Urine Automated 0-4 /hpf (0-4)
[2022-06-24 11:21] LABS: Renal Epithelial Cells Urine 0-5 /lpf (0-5)
[2022-06-24] MEDS ORDERED: MoRPHine SULFATE 4 MG/ML 1 ML CARP\\VIAL IV PRN (17:39)
--- NOTE | 2022-06-24 17:39 | History & Physical Report ---
Date of Service June 24, 2022 Assessment & Plan (1) Compression fx, lumbar spine: Plan: Patient admitted for compression fracture. Will continue pain medicine. will consult ortho spine. consult pt/ot (2) Dyslipidemia: Plan: Patient is on statin. will resume Admission and Anticipated Discharge Date Admission Date: June 24, 2022 History of Present Illness Chief Complaint: back pain Primary Care Provider: Antonia Sue MD 76 y female with PMH described below had a fall in October of this past year in the bathroom. She may have hit her back against the side of her bathtub. Since then she has had back pain. Her ambulatory function has gradually declined since then. Given her symptoms have worsened, and her pain is worse, she went to the ER. Allergies Allergy/AdvReac Type Severity Reaction Status Date / Time Sulfa (Sulfonamide Allergy Unknown Hives Verified 06/22/22 09:42 Antibiotics) triamterene Allergy Unknown Unknown Verified 06/22/22 09:42 hydrochlorothiazide AdvReac Unknown Disorientat Verified 06/22/22 09:42 [From Dyazide] ion Home Medications Medication Instructions Recorded Confirmed Type acetaminophen 500 mg capsule 1,000 mg PO Q6H PRN Pain 11/20/20 06/24/22 History atenolol 50 mg tablet 50 mg PO QAM #90 tabs 03/27/22 06/24/22 Rx lisinopril 40 mg tablet 40 mg PO QAM #90 tabs 03/27/22 06/24/22 Rx metformin 500 mg tablet 500 mg PO BID 06/24/22 06/24/22 History Past Med/Surg History Medical History Arthritis Cancer Right breast (1991) DVT (deep venous thrombosis) S/P childbirth 50 years ago, no issues since Dysmetabolic syndrome X Reason for Metformin per PCP Hypertension Obesity Surgical History H/O abdominal hysterectomy H/O lumpectomy History of hip replacement R/L (x5 total procedures) History of lumpectomy of right breast Hx of appendectomy Hx of tonsillectomy Hx of total knee arthroplasty Left Family History Mother Cardiac disorder Myocardial infarction Father Myocardial infarction Sister Hypertension Denies family history of Colon cancer Ovarian cancer Prostate cancer Breast cancer Social History Smoking Status: Never smoker Second Hand Exposure: No; Do You Dip or Chew Tobacco: No; Tobacco Cessation Education Requested by Patient: No Hx Alcohol Use: No Hx Substance Use: No Preferred Language: Lao Communication Ability: Effective Visual Impairment: No Limitations Hearing Ability: Normal Primary Special Educator Required: No Beliefs That Will Affect Care: None marital status: Current Living Situation: Spouse current occupational status: retired How many Children do You have: 2 Other Information That Helps Us Care for You: No Feels Safe at Home: No Is there a partner from a previous relationship who is making you feel unsafe now?: No Any Concerns about Your Family Situation: No Would You Like to Speak to Someone About Your Situation: No Safety Concerns: Feels Safe At This Time Childhood Exposure to Second-Hand Smoke: No caffeine: Yes during the past year weight has: remained stable Dental Care, Regularly: Yes Physical Activity Frequency: Does not Exercise Physical Activity Frequency Comment: Limited by physical condition Seatbelt Use: always Sunscreen Use: No Assistive Devices: Cane Review of Systems Constitutional: no fever Eyes: no blind spots Ear, Nose, Mouth, Throat: no ear pain Respiratory: no cough Cardiovascular: no chest pain Gastrointestinal: no abdominal pain Genitourinary: no dysuria Musculoskeletal: + back pain; no loss of height Integumentary: no acne Neurologic: + gait abnormality Psychiatric: no behavioral changes Endocrine: no fatigue Hematologic / Lymphatic: no easy bleeding Allergy / Immunological: no GI upset with certain foods Physical Exam Constitutional: WD/WN, vitals as above Eyes: PERRL, conjunctivae normal, anicteric sclerae ENMT: external ear and nose normal, oropharynx normal Neck: trachea midline, no thyromegaly Respiratory: normal respiratory effort, lungs clear to auscultation Cardiovascular: RRR, no murmur, no edema Gastrointestinal (Abdomen): normal bowel sounds, soft, nontender, no hepatosplenomegaly Musculoskeletal: Head/Neck/Chest: + head abnormal to inspection Skin: no rashes, warm and dry Neurologic: PERRL, EOMI, accommodation nl, no face palsy, no dysarthria Psychiatric: A+Ox3, euthymic affect Lymphatic: no cervical or axillary lymphadenopathy Results & Data Results & Data ([facility]) Vital Signs (Past 12 Hours) Vital Signs Temp Pulse Pulse Resp BP BP BP 06/24/22 17:33 142/100 H 06/24/22 17:06 06/24/22 17:06 36.7 C 96 H 20 180/78 H 06/24/22 15:00 87 20 152/95 H 06/24/22 13:00 106 H 18 163/119 H 06/24/22 11:21 82 18 167/135 H 06/24/22 11:22 06/24/22 09:25 36.8 C 120 H 18 189/79 H Pulse Ox O2 Del Method 06/24/22 17:33 06/24/22 17:06 Room Air 06/24/22 17:06 100 Room Air 06/24/22 15:00 97 06/24/22 13:00 99 Room Air 06/24/22 11:21 98 Room Air 06/24/22 11:22 99 Room Air 06/24/22 09:25 93 Room Air PG Care Time/CCT Total # of Minutes Spent Total Time Spent with Patient: Total time spent is greater than 50% in coordination of care (as documented) at patient's floor/unit and/or counseling patient: Coding Level of Care Code 62076 Initial Inpt Care Lvl 3 Diagnoses Compression fx, lumbar spine S32.020A Encounter type: initial encounter Lumbar vertebra fracture level: L2 Dyslipidemia E78.5 (1) Compression fx, lumbar spine Encounter type: initial encounter Lumbar vertebra fracture level: L2 Qualified Code(s): S32.020A - Wedge compression fracture of second lumbar vertebra, initial encounter for closed fracture
[2022-06-24] MEDS: CALCITONIN SALMON NA 200 IU/AC 3.7 ML BTL SCH (18:34)
[2022-06-24] MEDS: ACETAMINOPHEN 325 MG TAB PO SCH (20:17)
[2022-06-24] MEDS ORDERED: diphenhydrAMINE 50 MG/ML VIAL IV STA (23:15)
[2022-06-25] MEDS: ATENOLOL 50 MG TABLET PO SCH (08:03)
[2022-06-25] MEDS: ACETAMINOPHEN 325 MG TAB PO SCH ×4 (08:03→20:33)
[2022-06-25] MEDS: lisinopril 40 MG TAB PO SCH (08:04)
[2022-06-25] MEDS: HEPARIN SOD 5,000 UNIT/0.5 ML VIAL SQ SCH ×3 (08:04→20:37)
[2022-06-25] MEDS ORDERED: MoRPHine SULFATE 2 MG/ML CARP IV STA (10:28)
[2022-06-25] MEDS ORDERED: traMADol HCL 50 MG TABLET PO STA (10:44)
[2022-06-25] MEDS ORDERED: oxyCODONE HCL IR 5 MG TAB (IMMEDIATE RELEASE) PO STA (11:01)
[2022-06-25] MEDS: CALCITONIN SALMON NA 200 IU/AC 3.7 ML BTL SCH (11:17)
[2022-06-25] MEDS: LIDOCAINE 5% 1 PATCH TD SCH (11:17)
--- NOTE | 2022-06-25 14:04 | CT Scan Report ---
CT SCAN OF THE LUMBAR SPINE WITHOUT IV CONTRAST CLINICAL HISTORY: Low back pain. COMPARISON STUDY: Abdominal CT dated 06/24/2022. TECHNIQUE: CT scan of the lumbar spine is performed from the lower thoracic spine to the sacrum. Imag es are reviewed in the axial, sagittal, and coronal planes. IV contrast was not administered for this examination. A dose lowering technique was utilized adhering to the principles of ALARA. CT DOSE: 646.08 mGy.cm FINDINGS: The skeletal structures are osteopenic. A transitional lumbosacral segment will be labeled S1 for the purposes of today's examination. There is an acute superior endplate compression fracture of L2 with mild loss of height. Fragments are retropulsed by up to 4 mm. These do not contribute to s ignificant central canal stenosis. Vertebral body height is otherwise maintained throughout the lumba r spine. Alignment is preserved. Anterior and lateral marginal osteophytes are seen throughout. The t ransverse and spinous processes appear intact. There is no evidence of spondylolysis. No lytic or miguel angel stic lesion is seen. Facet arthropathy is noted in the lower lumbar region. There is moderate to adva nced disc space narrowing at all lumbar levels. Endplate sclerosis is seen at L4-L5 and L5-S1. Floatlight Powder Mixer ior disc osteophyte complexes are seen in the lumbar levels. This contributes to multilevel acquired compromise of the central canal. There is at least moderate central canal stenosis at L5-S1. There is a large left lateral disc bulge at L2-L3 seen on axial image #123. This contributes to at least mode rate neural foraminal narrowing and likely impinges on the exiting left L2 nerve root. Lateral disc b ulge is seen bilaterally at L4-L5. This contributes to bilateral subarticular stenosis and may imping e on the exiting bilateral L4 nerve roots. There is moderate to severe bilateral neural foraminal jennifer nosis seen at L4-L5 and L5-S1. The visualized sacrum and bony pelvis appear intact. Degenerative estes ge is noted in the sacroiliac joints. There is paravertebral edema at L2 around the fracture site. Fa tty atrophy is noted in the paraspinal and iliopsoas musculature. There is mild to moderate atheroscl erotic calcification of the abdominal aorta which is normal in caliber. No retroperitoneal lymphadeno evelina is seen. IMPRESSION: 1. A transitional lumbosacral segment will be labeled S1 for the purposes of today's examination. 2. An acute superior endplate compression fracture of L2 has not significantly changed from yesterday . There are mildly retropulsed fragments. This does not cause significant central canal stenosis. 3. No additional acute fracture is seen involving the lumbar spine. 4. Osteopenia and spondylotic change as above. ACT 112: Negative or not required by law. Dictated: 06/25/2022 12:07 PM Transcribed: 06/25/2022 1:59 PM Eryn [id number] [email or web address] Electronically signed by: José Ghotra M.D. 06/25/2022 2:03 PM
[2022-06-25] MEDS: oxyCODONE HCL IR 5 MG TAB (IMMEDIATE RELEASE) PO PRN (17:19)
--- NOTE | 2022-06-25 21:35 | Hospitalist Progress Note ---
Date of Service June 25, 2022 Assessment & Plan (1) Compression fx, lumbar spine: Plan: Patient admitted for lumbar compression fracture. Likely this is from osteoporosis. Will continue pain management. appreciate input from ortho spine. Patient will be using brace to ambulate, consulted orthotics. consult pt/ot (2) Dyslipidemia: Plan: Patient is on statin. will resume (3) Hypertension: Plan: resume home meds Admission and Anticipated Discharge Date Admission Date: June 24, 2022 Subjective 76 yo female reports that her pain is slightly better today. She is distraught that her sister was admitted to the hospital. Review of Systems Review of Systems: All systems reviewed & are unremarkable except as noted in HPI & below Physical Exam Constitutional: WD/WN, vitals as above Eyes: PERRL, conjunctivae normal, anicteric sclerae ENMT: external ear and nose normal, oropharynx normal Neck: trachea midline, no thyromegaly Respiratory: normal respiratory effort, lungs clear to auscultation Cardiovascular: RRR, no murmur, no edema Gastrointestinal (Abdomen): normal bowel sounds, soft, nontender, no hepatosplenomegaly Musculoskeletal: Head/Neck/Chest: normocephalic Skin: no rashes, warm and dry Neurologic: PERRL, EOMI, accommodation nl, no face palsy, no dysarthria Psychiatric: A+Ox3, euthymic affect Lymphatic: no cervical or axillary lymphadenopathy Results & Data Results & Data ([facility]) Vital Signs (Past 12 Hours) Vital Signs Temp Pulse Pulse Resp BP BP Pulse Ox 06/25/22 19:00 36.4 C L 59 L 16 160/74 H 98 06/25/22 16:18 36.9 C 57 L 20 120/74 96 06/25/22 16:18 63 06/25/22 11:34 36.8 C 49 L 18 107/62 97 O2 Del Method 06/25/22 19:00 Room Air 06/25/22 16:18 Room Air 06/25/22 16:18 06/25/22 11:34 Room Air PG Care Time/CCT Total # of Minutes Spent Total Time Spent with Patient: Total time spent is greater than 50% in coordination of care (as documented) at patient's floor/unit and/or counseling patient: Coding Level of Care Code 26613 Subseq Hosp Care Lvl 2 Diagnoses Compression fx, lumbar spine S32.020A Encounter type: initial encounter Lumbar vertebra fracture level: L2 Dyslipidemia E78.5 Hypertension I10 (1) Compression fx, lumbar spine Encounter type: initial encounter Lumbar vertebra fracture level: L2 Qualified Code(s): S32.020A - Wedge compression fracture of second lumbar vertebra, initial encounter for closed fracture
[2022-06-25] MEDS: MELATONIN 3 MG TAB PO PRN (23:15)
[2022-06-26 04:59] LABS: Mean Corpuscular Hemoglobin 32.5 pg (25.0-34.0); Mean Corpuscular Hgb Conc 34.4 g/dL (32.0-36.0); Mean Corpuscular Volume 94.7 fL (80.0-100.0); Mean Platelet Volume 11.6 fL (9.4-12.3); Platelet Count 156 K/uL (130-400); RDW Coefficient of Variation 12.7 % (11.5-14.5); RDW Standard Deviation 43.2 fL (36.4-46.3); Red Blood Count 3.38 M/uL (3.93-5.22); White Blood Count 5.43 K/ul (4.8-10.8)
[2022-06-26 05:21] LABS: BUN Creatinine Ratio 28.1 (10-20); Calcium 9.6 mg/dl (8.5-10.1); Creatinine Clr Calc Pharmacy 40.9 ml/min; Est GFR (African American) 46.7 ml/min; Est GFR (Non-African American) 40.3 ml/min; Potassium 4.6 mmol/L (3.5-5.1)
[2022-06-26] MEDS: ACETAMINOPHEN 325 MG TAB PO SCH ×4 (07:30→20:31)
[2022-06-26] MEDS: ATENOLOL 50 MG TABLET PO SCH (07:31)
[2022-06-26] MEDS: lisinopril 40 MG TAB PO SCH (07:33)
[2022-06-26] MEDS: HEPARIN SOD 5,000 UNIT/0.5 ML VIAL SQ SCH ×3 (07:33→20:31)
[2022-06-26] MEDS: oxyCODONE HCL IR 5 MG TAB (IMMEDIATE RELEASE) PO PRN ×3 (07:33→18:27)
[2022-06-26] MEDS: LIDOCAINE 5% 1 PATCH TD SCH (07:34)
--- NOTE | 2022-06-26 10:08 | Orthopedic Consultation ---
Date of Consultation June 26, 2022 Assessment & Plan (1) Compression fx, lumbar spine: Patient has sustained an acute L2 compression fracture. Dr. Kelly has reviewed the films and suggested that we start with bracing. She can be up with OT and PT and see how she does with this over the weekend. If she starts having more significant pain or the pain is not improving consideration may be given at some point performing a kyphoplasty at this level. As she does not have any leg pain or neurogenic claudication the spinal stenosis that is present does not need any specific treatment. History of Present Illness Attending Physician: Matthew Moreno History of Present Illness Patient is a 76-year-old female who presented to the emergency room on 06/24/2022 with complaints of flank pain. Through her work-up it was noted that she had an acute L2 compression fracture. She had been treated for an uncomplicated UTI with dysuria which has subsided. She does not recall any falls or injuries other than a fall in October 2021. She is not have any pain radiating down the legs no weakness in the legs no other numbness, tingling, or paresthesias. Allergies Allergy/AdvReac Type Severity Reaction Status Date / Time Sulfa (Sulfonamide Allergy Unknown Hives Verified 06/22/22 09:42 Antibiotics) triamterene Allergy Unknown Unknown Verified 06/22/22 09:42 hydrochlorothiazide AdvReac Unknown Disorientat Verified 06/22/22 09:42 [From Dyazide] ion Home Medications Medication Instructions Recorded Confirmed Type acetaminophen 500 mg capsule 1,000 mg PO Q6H PRN Pain 11/20/20 06/24/22 History atenolol 50 mg tablet 50 mg PO QAM #90 tabs 03/27/22 06/24/22 Rx lisinopril 40 mg tablet 40 mg PO QAM #90 tabs 03/27/22 06/24/22 Rx metformin 500 mg tablet 500 mg PO BID 06/24/22 06/24/22 History Patient History Medical History Arthritis Cancer Right breast (1991) DVT (deep venous thrombosis) S/P childbirth 50 years ago, no issues since Dysmetabolic syndrome X Reason for Metformin per PCP Hypertension Obesity Surgical History H/O abdominal hysterectomy H/O lumpectomy History of hip replacement R/L (x5 total procedures) History of lumpectomy of right breast Hx of appendectomy Hx of tonsillectomy Hx of total knee arthroplasty Left Family History Mother Cardiac disorder Myocardial infarction Father Myocardial infarction Sister Hypertension Denies family history of Colon cancer Ovarian cancer Prostate cancer Breast cancer Social History Smoking Status: Never smoker Second Hand Exposure: No; Do You Dip or Chew Tobacco: No; Tobacco Cessation Education Requested by Patient: No Hx Alcohol Use: No Hx Substance Use: No Preferred Language: Czech Communication Ability: Effective Visual Impairment: No Limitations Hearing Ability: Normal Building Carpenter Helper Required: No Beliefs That Will Affect Care: None marital status: Current Living Situation: Spouse current occupational status: retired How many Children do You have: 2 Other Information That Helps Us Care for You: No Feels Safe at Home: No Is there a partner from a previous relationship who is making you feel unsafe now?: No Any Concerns about Your Family Situation: No Would You Like to Speak to Someone About Your Situation: No Safety Concerns: Feels Safe At This Time Childhood Exposure to Second-Hand Smoke: No caffeine: Yes during the past year weight has: remained stable Dental Care, Regularly: Yes Physical Activity Frequency: Does not Exercise Physical Activity Frequency Comment: Limited by physical condition Seatbelt Use: always Sunscreen Use: No Assistive Devices: Cane Physical Exam Physical Exam: On exam the patient is seated in her chair. She is nontender palpation or percussion along the lower portion of lumbar spine. She has no nerve root tension signs. Her lower extremity motor exam reveals no focal atrophy or strength 5 out of 5 to detailed muscle testing without exception. Her skin is clean dry and intact. Calves are supple nontender. Her gait was not observed. Patient is alert and oriented. Her breathing was unlabored. Results & Data ([facility]) Vital Signs (Past 12 Hours) Vital Signs Temp Pulse Pulse Resp BP Pulse Ox O2 Del Method 06/26/22 07:59 36.9 C 53 L 16 136/84 96 Room Air 06/26/22 03:41 36.7 C 50 L 16 143/84 H 98 Room Air 06/25/22 22:05 54 L 06/25/22 22:28 36.8 C 59 L 16 158/91 H 99 Room Air Diagnostic Findings CT scan of the lumbar spine was reviewed. This reveals a central depression of the L2 vertebral body. There fracture lines extending into the middle column w ith mild displacement and small retropulsed fragment without significant spinal stenosis. In addition to the fracture she has multilevel degenerative disc disease with moderate spinal stenosis at L3-4, L4-5, L5-S1. This secondary to facet arthropathy. (1) Compression fx, lumbar spine Encounter type: initial encounter Lumbar vertebra fracture level: L2 Qualified Code(s): S32.020A - Wedge compression fracture of second lumbar vertebra, initial encounter for closed fracture
[2022-06-26] MEDS: CALCITONIN SALMON NA 200 IU/AC 3.7 ML BTL SCH (10:29)
[2022-06-26] MEDS: MELATONIN 3 MG TAB PO PRN (20:31)
--- NOTE | 2022-06-26 21:02 | Hospitalist Progress Note ---
Date of Service June 26, 2022 Assessment & Plan (1) Compression fx, lumbar spine: Plan: Metabolic bone disease, likely due to osteoporosis with acute superior endplate compression fracture of L2 Patient admitted for lumbar compression fracture. Likely this is from osteoporosis. Will continue pain management. appreciate input from ortho spine. Patient will be using brace to ambulate, consulted orthotics. consult pt/ot Patient feels that pain is not adequately controlled today. Ortho recommmends patient should stay overnight, if no improvement, may need surgical eval. Will continue conservative management. If discharged will organize home health. Case management is aware (2) Dyslipidemia: Plan: Patient is on statin. will resume (3) Hypertension: Plan: resume home meds Admission and Anticipated Discharge Date Admission Date: June 24, 2022 Subjective 76 yo female reports feeling well, except for her back pain. Patient obtained a back brace. Review of Systems Review of Systems: All systems reviewed & are unremarkable except as noted in HPI & below Physical Exam Constitutional: WD/WN, vitals as above Eyes: PERRL, conjunctivae normal, anicteric sclerae ENMT: external ear and nose normal, oropharynx normal Neck: trachea midline, no thyromegaly Respiratory: normal respiratory effort, lungs clear to auscultation Cardiovascular: RRR, no murmur, no edema Gastrointestinal (Abdomen): normal bowel sounds, soft, nontender, no hepatosplenomegaly Musculoskeletal: Head/Neck/Chest: + head abnormal to inspection and normocephalic Skin: no rashes, warm and dry Neurologic: PERRL, EOMI, accommodation nl, no face palsy, no dysarthria Psychiatric: A+Ox3, euthymic affect Lymphatic: no cervical or axillary lymphadenopathy Results & Data Results & Data ([facility]) Vital Signs (Past 12 Hours) Vital Signs Temp Pulse Resp BP Pulse Ox Pulse Ox O2 Del Method 06/26/22 19:25 36.4 C L 57 L 18 99/66 L 98 Room Air 06/26/22 16:10 36.9 C 57 L 17 117/72 98 Room Air 06/26/22 14:00 97 06/26/22 12:17 36.9 C 60 20 142/86 H 98 Room Air PG Care Time/CCT Total # of Minutes Spent Total Time Spent with Patient: Total time spent is greater than 50% in coordination of care (as documented) at patient's floor/unit and/or counseling patient: Coding Level of Care Code 88053 Subseq Hosp Care Lvl 2 Diagnoses Compression fx, lumbar spine S32.020A Encounter type: initial encounter Lumbar vertebra fracture level: L2 Dyslipidemia E78.5 Hypertension I10 Time Spent (min) 25 (1) Compression fx, lumbar spine Encounter type: initial encounter Lumbar vertebra fracture level: L2 Qualified Code(s): S32.020A - Wedge compression fracture of second lumbar vertebra, initial encounter for closed fracture
[2022-06-27] MEDS: ATENOLOL 50 MG TABLET PO SCH (07:11)
[2022-06-27] MEDS: oxyCODONE HCL IR 5 MG TAB (IMMEDIATE RELEASE) PO PRN ×3 (07:49→20:08)
[2022-06-27] MEDS: lisinopril 40 MG TAB PO SCH (07:49)
[2022-06-27] MEDS: ACETAMINOPHEN 325 MG TAB PO SCH ×4 (07:49→20:02)
[2022-06-27] MEDS: LIDOCAINE 5% 1 PATCH TD SCH (07:50)
[2022-06-27] MEDS: HEPARIN SOD 5,000 UNIT/0.5 ML VIAL SQ SCH ×3 (07:50→20:03)
[2022-06-27 09:44] LABS: Calcium 9.5 mg/dl (8.5-10.1); Est GFR (African American) 48.5 ml/min; Est GFR (Non-African American) 41.9 ml/min; Potassium 4.5 mmol/L (3.5-5.1)
[2022-06-27] MEDS: CALCITONIN SALMON NA 200 IU/AC 3.7 ML BTL SCH (11:13)
[2022-06-27] MEDS: MELATONIN 3 MG TAB PO PRN (20:07)
--- NOTE | 2022-06-27 22:18 | Hospitalist Progress Note ---
Date of Service June 27, 2022 Assessment & Plan (1) Compression fx, lumbar spine: Plan: Metabolic bone disease, likely due to osteoporosis with acute superior endplate compression fracture of L2 Patient admitted for lumbar compression fracture. Likely this is from osteoporosis. Will continue pain management. appreciate input from ortho spine. Patient will be using brace to ambulate, consulted orthotics. consult pt/ot Patient feels that pain is not adequately controlled on 06/27 Ortho recommmends patient should stay overnight, if no improvement, may need kyphoplasty. Will continue conservative management. If discharged, home health scheduled for Wednesday. (2) Dyslipidemia: Plan: Patient is on statin. will resume (3) Hypertension: Plan: resume home meds Admission and Anticipated Discharge Date Admission Date: June 24, 2022 Subjective 76 yo female reports having pain in her lumbar spine. She feels her pain is not controlled. Review of Systems Review of Systems: All systems reviewed & are unremarkable except as noted in HPI & below Physical Exam Constitutional: WD/WN, vitals as above Eyes: PERRL, conjunctivae normal, anicteric sclerae ENMT: external ear and nose normal, oropharynx normal Neck: trachea midline, no thyromegaly Respiratory: normal respiratory effort, lungs clear to auscultation Cardiovascular: RRR, no murmur, no edema Gastrointestinal (Abdomen): normal bowel sounds, soft, nontender, no hepatosplenomegaly Musculoskeletal: Head/Neck/Chest: + head abnormal to inspection and normocephalic Skin: no rashes, warm and dry Neurologic: PERRL, EOMI, accommodation nl, no face palsy, no dysarthria Psychiatric: A+Ox3, euthymic affect Lymphatic: no cervical or axillary lymphadenopathy Results & Data Results & Data ([facility]) Vital Signs (Past 12 Hours) Vital Signs Temp Pulse Resp BP Pulse Ox O2 Del Method 06/27/22 19:09 36.7 C 63 18 108/55 L 96 Room Air 06/27/22 16:50 36.7 C 59 L 19 112/69 97 Room Air 06/27/22 11:35 36.5 C 55 L 18 96/58 L 98 Room Air PG Care Time/CCT Total # of Minutes Spent Total Time Spent with Patient: Total time spent is greater than 50% in coordination of care (as documented) at patient's floor/unit and/or counseling patient: Coding Level of Care Code 70316 Subseq Hosp Care Lvl 2 Diagnoses Compression fx, lumbar spine S32.020A Encounter type: initial encounter Lumbar vertebra fracture level: L2 Dyslipidemia E78.5 Hypertension I10 (1) Compression fx, lumbar spine Encounter type: initial encounter Lumbar vertebra fracture level: L2 Qualified Code(s): S32.020A - Wedge compression fracture of second lumbar vertebra, initial encounter for closed fracture
[2022-06-28] MEDS ORDERED: lisinopril 20 MG TAB PO SCH (09:00)
[2022-06-28] MEDS: LIDOCAINE 5% 1 PATCH TD SCH (09:15)
[2022-06-28] MEDS: ATENOLOL 50 MG TABLET PO SCH (09:16)
[2022-06-28] MEDS: ACETAMINOPHEN 325 MG TAB PO SCH ×4 (09:16→21:36)
[2022-06-28] MEDS: HEPARIN SOD 5,000 UNIT/0.5 ML VIAL SQ SCH ×3 (09:17→21:38)
[2022-06-28] MEDS: CALCITONIN SALMON NA 200 IU/AC 3.7 ML BTL SCH (12:20)
--- NOTE | 2022-06-28 14:28 | Hospitalist Progress Note ---
Date of Service June 28, 2022 Assessment & Plan (1) Compression fx, lumbar spine: Plan: Metabolic bone disease, likely due to osteoporosis with acute superior endplate compression fracture of L2 Patient admitted for lumbar compression fracture Continue acetaminophen 605mg QID Oxycodone 5mg q4h PRN Lidocaine 5% patch Appreciate input from ortho spine - brace to ambulate Continued left CVA tenderness, will repeat infection workup given hypotension on her usual BP meds but likely just MSK pain after recent UTI and L2 compression #. Patient will be using brace to ambulate, orthotics consulted. Continue PT/OT (2) Hypertension: Plan: Despite decreased dose of lisinopril to 20mg this morning she remains significantly orthostatic by symptoms and HR in 40s. Will d/c atenolol and lisinopril at this time although unclear reason for not being able to restart her usual home meds therefore will restest UA, blood cultures and labs for infection. No diarrhea, URI symptoms. No oxycodone taken today. (3) Orthostatic hypotension: Plan: In setting of atenolol and lisinopril use. Management as above. (4) Sinus bradycardia: Plan: In setting of atenolol use, management as above. Plan VTE Prophylaxis - heparin 5000 units SQ TID Diet - heart healthy Disposition - stable for transfer to med/tele, continued inpatient stay due to bradycardia and orthostasis Admission and Anticipated Discharge Date Admission Date: June 24, 2022 Subjective Dizzy and lightheadedness today after atenolol and lisinopril given this morning. Atenolol was held for the previous two days for parameters. Ongoing back pain. Initially reported not one sided but after exam she reports it does feel worse on left side. Previous urinary symptoms as outpatient have improved. Review of Systems Review of Systems: All systems reviewed & are unremarkable except as noted in Subjective Physical Exam Constitutional: WD/WN, vitals as above Eyes: + anicteric sclerae; normal pupil size Respiratory: normal respiratory effort, lungs clear to auscultation Cardiovascular: RRR, no murmur, no edema Gastrointestinal (Abdomen): normal bowel sounds, soft, nontender, no hepatosplenomegaly Psychiatric: A+Ox3, euthymic affect Genitourinary: + CVA tenderness (left) Results & Data Results & Data ([facility]) Vital Signs (Past 12 Hours) Vital Signs Temp Pulse Pulse Resp BP Pulse Ox Pulse Ox 06/28/22 11:10 36.5 C 66 18 94/56 L 98 06/28/22 07:59 58 L 06/28/22 07:59 98 06/28/22 06:57 36.7 C 58 L 18 123/77 97 06/28/22 03:43 36.6 C 59 L 18 112/73 96 O2 Del Method O2 Del Method 06/28/22 11:10 Room Air 06/28/22 07:59 06/28/22 07:59 Room Air 06/28/22 06:57 Room Air 06/28/22 03:43 Room Air PG Care Time/CCT Total # of Minutes Spent Total Time Spent with Patient: Total time spent is greater than 50% in coordination of care (as documented) at patient's floor/unit and/or counseling patient: Coding Level of Care Code 20159 Subseq Hosp Care Lvl 2 Diagnoses Compression fx, lumbar spine S32.020A Encounter type: initial encounter Lumbar vertebra fracture level: L2 Hypertension I10 Orthostatic hypotension I95.1 Sinus bradycardia R00.1 (1) Compression fx, lumbar spine Encounter type: initial encounter Lumbar vertebra fracture level: L2 Qualified Code(s): S32.020A - Wedge compression fracture of second lumbar vertebra, initial encounter for closed fracture
[2022-06-28 14:56] LABS: Appearance Urine Clear (Clear); Bilirubin Urine Negative (Negative); Blood Urine Negative (Negative); Color Urine Yellow; Glucose Urine UA Negative (Negative); Ketones Urine Negative (Negative); Leukocyte Esterase Urine Negative (Negative); Nitrite Urine Negative (Negative); Protein Urine Negative (Negative); Specific Gravity Urine 1.016 (1.000-1.030); Urobilinogen Urine Negative (Negative)
[2022-06-28 15:04] LABS: Basophils # (auto) 0.02 K/uL (0-0.2); Basophils % (auto) 0.4 %; Eosinophils # (auto) 0.32 K/uL (0-0.50); Hemoglobin 11.4 g/dl (12.0-16.0); Immature Granulocytes # (auto) 0.01 K/uL (0.00-0.02); Immature Granulocytes % (auto) 0.2 %; Lymphocytes # (auto) 1.66 K/uL (1.2-3.4); Lymphocytes % (auto) 31.1 %; Mean Corpuscular Hemoglobin 32.1 pg (25.0-34.0); Mean Corpuscular Hgb Conc 33.5 g/dL (32.0-36.0); Mean Corpuscular Volume 95.8 fL (80.0-100.0); Mean Platelet Volume 11.6 fL (9.4-12.3); Monocytes # (auto) 0.51 K/uL (0.24-0.82); Monocytes % (auto) 9.6 %; Neutrophils # (auto) 2.82 K/uL (1.4-6.5); Neutrophils % (auto) 52.7 %; Platelet Count 169 K/uL (130-400); RDW Coefficient of Variation 12.8 % (11.5-14.5); RDW Standard Deviation 44.5 fL (36.4-46.3); Red Blood Count 3.55 M/uL (3.93-5.22); White Blood Count 5.34 K/ul (4.8-10.8)
[2022-06-28 15:32] LABS: Albumin Globulin Ratio 1.1 (0.9-2); Albumin Level 3.7 gm/dl (3.4-5.0); BUN Creatinine Ratio 21.7 (10-20); Bilirubin,Total 0.4 mg/dl (0.2-1.0); Calcium 9.5 mg/dl (8.5-10.1); Creatinine Clr Calc Pharmacy 24.6 ml/min; Est GFR (African American) 25.4 ml/min; Est GFR (Non-African American) 21.9 ml/min; Globulin 3.3 gm/dl (2.5-4.0); Potassium 4.9 mmol/L (3.5-5.1)
[2022-06-28] MEDS: oxyCODONE HCL IR 5 MG TAB (IMMEDIATE RELEASE) PO PRN (18:01)
[2022-06-28] MEDS: LACTATED RINGER'S 1,000 ML IV SCH (18:01)
[2022-06-28] MEDS: MELATONIN 3 MG TAB PO PRN (21:37)
[2022-06-29] MEDS: LACTATED RINGER'S 1,000 ML IV SCH (03:39)
[2022-06-29 08:06] LABS: BUN Creatinine Ratio 38.5 (10-20); Calcium 9.2 mg/dl (8.5-10.1); Creatinine Clr Calc Pharmacy 42.7 ml/min; Est GFR (African American) 49.5 ml/min; Est GFR (Non-African American) 42.7 ml/min; Potassium 4.5 mmol/L (3.5-5.1)
[2022-06-29] MEDS: ACETAMINOPHEN 325 MG TAB PO SCH ×2 (08:28→13:15)
[2022-06-29] MEDS: HEPARIN SOD 5,000 UNIT/0.5 ML VIAL SQ SCH ×3 (08:29→20:12)
[2022-06-29] MEDS: LIDOCAINE 5% 1 PATCH TD SCH (08:29)
--- NOTE | 2022-06-29 08:38 | Hospitalist Progress Note ---
Date of Service June 29, 2022 Assessment & Plan (1) Compression fx, lumbar spine: Plan: Metabolic bone disease, likely due to osteoporosis with acute superior endplate compression fracture of L2 Patient admitted for lumbar compression fracture L2 Continue acetaminophen 1000 mg 3 times daily Oxycodone 10mg q4h PRN Lidocaine 5% patch Celebrex 100 twice daily Appreciate input from ortho spine - brace to ambulate Continued left CVA tenderness, repeat urine analysis is negative, pain is likely musculoskepetal Patient will be using brace to ambulate, orthotics consulted. Continue PT/OT (2) Hypertension: Plan: holding home medications at this time, devendra resolved with ivf (3) Orthostatic hypotension: Plan: In setting of atenolol and lisinopril use. Management as above. (4) Sinus bradycardia: Plan: In setting of atenolol use, management as above. Plan VTE Prophylaxis - heparin 5000 units SQ TID Diet - heart healthy Disposition - stable for transfer to [facility], continued inpatient stay due to bradycardia and orthostasis Admission and Anticipated Discharge Date Admission Date: June 24, 2022 Subjective Patient still having fairly significant positional pain. She does not feel her brace helps her much. Current medical cocktail is not as effective as she would like. She is not physical she can go home and tolerate the pain is her has health concerns at home and cannot be much help with her care. Review of Systems Review of Systems: Moderate distress and fatigue no headache, no visual changes no speech or swallowing issues no chest pain, pressure or palpitations no shortness of breath, cough or wheezes no abdominal pain, nausea or vomiting, diarrhea or constipation no dysuria, hematuria or frequency no focal joint pain or swelling Focal back pain without radiation worse with movement no bruising, bleeding or rashes no focal signs of weakness or numbness or altered sensation no complaints of anxiety or depression.. Physical Exam Physical Exam: The patient appeared well nourished and normally developed. Vital signs as documented. Head exam is normocephalic atraumatic Neck is without JVD, thyromegaly, or carotid bruits. Lungs are clear to auscultation, no focal loss of breath sounds Cardiac exam, Rhythm is regular.. No murmurs, rubs or gallops. Abdominal exam reveals normal bowel sounds, soft non tender, no masses Patient has tenderness in her lower back which does not radiate to her legs it is sharp 8/10 with movement 3-4 / 10 at rest Extremities are nonedematous and both pedal pulses are present Neurologic exam is alert and oriented, no focal loss of strength or sensation Skin is without bruises or rashes Psychologically is without concerns for anxiety or depression.. Results & Data Results & Data ([facility]) Vital Signs (Past 12 Hours) Vital Signs Temp Pulse Pulse Resp BP BP Pulse Ox 06/29/22 07:52 97.9 F 58 L 18 185/82 H 100 06/29/22 07:08 50 L 06/29/22 04:23 98.1 F 49 L 16 132/72 100 06/28/22 22:12 49 L 06/28/22 22:26 97.7 F 56 L 18 100/66 95 O2 Del Method 06/29/22 07:52 Room Air 06/29/22 07:08 06/29/22 04:23 Room Air 06/28/22 22:12 06/28/22 22:26 Room Air PG Care Time/CCT Total # of Minutes Spent Total Time Spent with Patient: Total time spent is greater than 50% in coordination of care (as documented) at patient's floor/unit and/or counseling patient: Coding Level of Care Code 63618 Subseq Hosp Care Lvl 3 Diagnoses Compression fx, lumbar spine S32.020A Encounter type: initial encounter Lumbar vertebra fracture level: L2 Hypertension I10 Orthostatic hypotension I95.1 Sinus bradycardia R00.1 (1) Compression fx, lumbar spine Encounter type: initial encounter Lumbar vertebra fracture level: L2 Qualified Code(s): S32.020A - Wedge compression fracture of second lumbar vertebra, initial encounter for closed fracture
[2022-06-29] MEDS: oxyCODONE HCL IR 5 MG TAB (IMMEDIATE RELEASE) PO PRN (09:17)
[2022-06-29] MEDS: CALCITONIN SALMON NA 200 IU/AC 3.7 ML BTL SCH (12:10)
[2022-06-29] MEDS ORDERED: traMADol HCL 50 MG TABLET PO STA (14:48)
[2022-06-29] MEDS ORDERED: oxyCODONE HCL IR 5 MG TAB (IMMEDIATE RELEASE) PO PRN (14:49)
[2022-06-29] MEDS: MELATONIN 3 MG TAB PO PRN (20:09)
[2022-06-29] MEDS: ACETAMINOPHEN 500 MG TAB PO SCH (20:11)
[2022-06-29] MEDS: CELECOXIB 100 MG CAP PO SCH (20:12)
[2022-06-29] MEDS ORDERED: traMADol HCL 50 MG TABLET PO SCH (21:00)
[2022-06-30 08:29] LABS: BUN Creatinine Ratio 32.3 (10-20); Calcium 9.4 mg/dl (8.5-10.1); Creatinine Clr Calc Pharmacy 39.2 ml/min; Est GFR (African American) 44.6 ml/min; Est GFR (Non-African American) 38.5 ml/min; Potassium 4.6 mmol/L (3.5-5.1)
[2022-06-30] MEDS: LIDOCAINE 5% 1 PATCH TD SCH (09:12)
[2022-06-30] MEDS: HEPARIN SOD 5,000 UNIT/0.5 ML VIAL SQ SCH ×2 (09:13→13:32)
[2022-06-30] MEDS: CELECOXIB 100 MG CAP PO SCH (09:13)
[2022-06-30] MEDS: ACETAMINOPHEN 500 MG TAB PO SCH ×2 (09:14→13:31)
[2022-06-30] MEDS: CALCITONIN SALMON NA 200 IU/AC 3.7 ML BTL SCH (12:25)
--- NOTE | 2022-06-30 21:42 | Discharge Summary ---
Date of Service June 30, 2022 Admission HPI Per Admitting Provider 76 y female with PMH described below had a fall in October of this past year in the bathroom. She may have hit her back against the side of her bathtub. Since then she has had back pain. Her ambulatory function has gradually declined since then. Given her symptoms have worsened, and her pain is worse, she went to the ER. Principal Diagnosis Compression fracture due to underlying osteoporosis Discharge Exam The patient appeared well nourished and normally developed. Vital signs as documented. Head exam is normocephalic atraumatic Neck is without JVD, thyromegaly, or carotid bruits. Lungs are clear to auscultation, no focal loss of breath sounds Cardiac exam, Rhythm is regular.. No murmurs, rubs or gallops. Abdominal exam reveals normal bowel sounds, soft non tender, no masses Patient has tenderness in her lower back which does not radiate to her legs it is sharp 8/10 with movement 3-4 / 10 at rest Extremities are nonedematous and both pedal pulses are present Neurologic exam is alert and oriented, no focal loss of strength or sensation Skin is without bruises or rashes Psychologically is without concerns for anxiety or depression.. Constitutional WD/WN, vitals as above Eyes PERRL, conjunctivae normal, anicteric sclerae + anicteric sclerae; normal pupil size ENMT external ear and nose normal, oropharynx normal Neck trachea midline, no thyromegaly Respiratory normal respiratory effort, lungs clear to auscultation Cardiovascular RRR, no murmur, no edema Gastrointestinal (Abdomen) normal bowel sounds, soft, nontender, no hepatosplenomegaly Musculoskeletal Head/Neck/Chest: + head abnormal to inspection and normocephalic Skin no rashes, warm and dry Neurologic PERRL, EOMI, accommodation nl, no face palsy, no dysarthria Psychiatric A+Ox3, euthymic affect Genitourinary + CVA tenderness (left) Lymphatic no cervical or axillary lymphadenopathy Discharge Data Allergies Allergy/AdvReac Type Severity Reaction Status Date / Time Sulfa (Sulfonamide Allergy Unknown Hives Verified 06/22/22 09:42 Antibiotics) triamterene Allergy Unknown Unknown Verified 06/22/22 09:42 hydrochlorothiazide AdvReac Unknown Disorientat Verified 06/22/22 09:42 [From Dyazide] ion Consultations 06/24/22 13:49 ED Decision to Admit Stat 06/24/22 18:30 Consult Orthopedic Surgery Routine Ordered Studies 06/24/22 09:41 CT abd pelvis wo con Stat 06/25/22 10:36 CT lumbar spine wo con Routine Hospital Course (1) Compression fx, lumbar spine: Metabolic bone disease, likely due to osteoporosis with acute superior endplate compression fracture of L2 Patient admitted for lumbar compression fracture L2, possibly secondary to underlying osteoporosis, severe pain, patient started on scheduled Tylenol, as well as oxycodone as needed and lidocaine patch however patient is on NSAID, consulted Ortho, Ortho recommended brace to ambulate, currently pain is 3 out of 10, patient able to ambulate with tolerable pain patient is advised to follow-up with PCP, currently patient is not taking vitamin D, patient is to follow-up follow-up with PCP to rule out vitamin D deficiency, doing bone density test and received bone stabilizers (2) Hypertension: holding home medications at this time, devendra resolved with ivf (3) Orthostatic hypotension: In setting of atenolol and lisinopril use. Management as above. (4) Sinus bradycardia: In setting of atenolol use, management as above. Plan VTE Prophylaxis - heparin 5000 units SQ TID Diet - heart healthy Disposition - stable for transfer to [facility], continued inpatient stay due to bradycardia and orthostasis Total Time Total Time Spent Total Time Spent (In Minutes): 35 minutes Discharge Plan Discharge Items Patient Disposition: Home - Home Health Services Reason For Visit: COMPRESSION FRACTURE Discharge Diagnosis: compression fracture Condition on Discharge: Good Activity: Resume your previous activity Lifting: Gradually increase as tolerated Bathing: No limitations Sexual Activity: When tolerated Driving/Machine Use: No limitations Weightbearing: Full weightbearing Non-emergency contact: Primary Care Provider Call non-emergency contact if: you have any medication questions and your pain is not controlled Follow-up/Referrals: Antonia Sue MD [Primary Care Provider] - 07/09/22 10:20 am Benjy Kelly DO [Surgeon] - (in two weeks for follow up ) Diet: Heart Healthy Addtl Attending Provider Instructions: please check your blood pressure on regular basis , collect the information in a log book and provide it to your primary care doctor in one week. Pending Studies at Discharge: No Stand-Alone Forms: [facility] Medications and DC Order Prescriptions: New calcitonin (salmon) 200 unit/actuation Lefors,Non-Aerosol 1 spray NA Q24H Qty: 1 0RF lidocaine 5 % Adhesive Patch,Medicated 1 patch transdermal QAM Qty: 20 0RF celecoxib [Celebrex] 100 mg Capsule 100 mg PO BID Qty: 30 0RF Continued atenolol 50 mg tablet 50 mg PO QAM Qty: 90 3RF acetaminophen 500 mg Capsule 1,000 mg PO Q6H PRN (Reason: Pain) metformin 500 mg tablet 500 mg PO BID Changed lisinopril 40 mg tablet 20 mg PO QAM Qty: 90 3RF Discharge Orders: Discharge Order (Routine); Ordered 06/30/22 Ordered By: Caesar Quick Admission Data Admit Date/Time: 06/24/22 14:40 Attending Provider: Caesar Quick Admit Provider: Matthew Moreno Primary Care Provider: Antonia Sue Other Providers: [facility] ; Matthew Moreno ; Benjy Kelly ; Chau Serrato Other Interventions: Discharge Summary Assessment (RN) Last Done: 06/30/22 13:44 Coding Level of Care Code D/C DAY MANAGEMENT <30 MINS Diagnoses Compression fx, lumbar spine S32.020A Encounter type: initial encounter Lumbar vertebra fracture level: L2 Hypertension I10 Orthostatic hypotension I95.1 Sinus bradycardia R00.1
== END 2022-06-30 15:05 | disposition home health service (06) | DRG 543 ==
LOC: ED 09:20 → 4W 14:40 → SUATTDRO 14:40 → 4W 15:49 → 2N 06-28 14:36

== ENCOUNTER 2024-10-07 23:15 | Inpatient (IN) ==
--- NOTE | 2024-10-08 | Emergency Department Note ---
Impression & Plan COVID-19, Acute UTI, Generalized weakness ED Provider Note NAME: KAREN MITCHELL AGE: 78 SEX: F : 1945 ARRIVES VIA: Ambulance INFORMANT: Patient ED PROVIDER(S): Tim Barclay MD CHIEF COMPLAINT: Weakness, Congestion PLAN: Disposition: Admit MEDICAL DECISION MAKING: The patient is a pleasant 78-year-old woman with a past medical history of hypertension, pelvic prolapse, recurrent urinary tract infection who presents to the emergency department via EMS in the accompanied by family for evaluation of worsening generalized weakness that has been ongoing since Wednesday of last week with cough and congestion and bodyaches. Patient reports she slipped out of her reclining chair this evening and could not get herself up as her legs were bent in an awkward position. She denies any head strike or loss of consciousness. She is not on anticoagulation. She denies chest pain or shortness of breath. She reports she has had poor oral intake due to feeling unwell over the past week. She reports having nausea but denies vomiting. She denies any diarrhea. On evaluation the patient is fatigued appearing but no acute distress, with fever of 37.7 with stable vital signs. She appears clinically dry. She has boggy nasal turbinates. Lungs are clear with normal respiratory effort. She exhibits generalized weakness without focal neurologic deficits. EKG without overt acute ischemia. CXR demonstrates prominent bilateral bronchovascular markings without focal consolidation per my personal preliminary review/interpretation. X-ray of bilateral knees negative for fracture or dislocation per my preliminary independent interpretation. WBC within normal limits with neutrophilia but no left shift. H/H similar to prior. Platelets within normal limits. Chemistry without metabolic acidosis. Lactic acid wnl. LFTs unremarkable. Magnesium 1.4 with IV repletion initiated. HS troponin elevated 75, nonspecific. Procalcitonin is elevated at 6. Urinalysis is suspicious for infection with 1+ bacteria albeit with epithelial cells present and negative nitrites. Respiratory BioFire did result positive for COVID-19. Given the patient's generalized weakness in the setting of her illness patient and family agree with plan for admission for further management. Given febrile presentation on arrival patient was treated with empiric ceftriaxone following blood cultures. Dr. Castro, [facility] [place], to evaluate the patient for admission. Further management per admitting team. Triage Nursing notes reviewed and agree them. Prior/external medical records reviewed Vital Signs: reviewed Differential diagnosis: Infection, dehydration, metabolic abnormality, hypo/hyperglycemia, electrolyte disturbance, anemia, hypoxia, cardiac sources, intracerebral event, toxicologic, neurologic, as well as other pathologies. ER treatment provided: See below. Diagnostics interpreted by me: ECG: Sinus rhythm with PSVC's, 90 bpm, LVH, no overt ST elevation or depression, QTc 474, QRS 82. Cardiac Monitoring: An order for continuous cardiac monitoring was placed and demonstrated Sinus rhythm with PSVC's, 90 bpm Laboratory studies: See below Imaging studies: See below Consultation(s): Dr. Castro, [facility] [place]. HPI: The patient is a pleasant 78-year-old woman with a past medical history of hypertension, pelvic prolapse, recurrent urinary tract infection who presents to the emergency department via EMS in the accompanied by family for evaluation of worsening generalized weakness that has been ongoing since Wednesday of last week with cough and congestion and bodyaches. Patient reports she slipped out of her reclining chair this evening and could not get herself up as her legs were bent in an awkward position. She denies any head strike or loss of consciousness. She is not on anticoagulation. She has any chest pain or shortness of breath. She reports she has had poor oral intake due to feeling unwell over the past week. She reports having nausea but denies vomiting. She denies any diarrhea. ROS: See above HPI for pertinent positives & negatives. A total of 10 systems reviewed and were otherwise negative. VITALS:See Below PHYSICAL EXAMINATION: GENERAL: Awake, alert, fatigued-appearing, in no distress, BMI 32.0. HENT: Normocephalic, atraumatic. Boggy nasal turbinates. Oropharynx with dry mucous membranes and otherwise unremarkable. EYES: Normal conjunctiva. Sclera non-icteric. EOMI. No nystamgus. PEARRL. NECK: Supple. No nuchal rigidity. FROM. No JVD. No midline tenderness to palpation or step-offs. RESPIRATORY: Clear to auscultation. CARDIAC: Regular rate, normal rhythm. Extremities warm and well perfused. Pulses equal. ABDOMEN: Soft, non-distended. No tenderness to palpation. No rebound or guarding. No masses. MUSCULOSKELETAL: Chest examination reveals no tenderness. The back is symmetrical on inspection without obvious abnormality. There is no CVA tenderness to palpation. No joint edema. Mild discomfort with range of motion bilateral knees. LOWER EXTREMITIES: Calves are equal size bilaterally and non-tender. No edema. No discoloration. NEURO: No focal sensory or motor deficits noted. SKIN: No rash or jaundice noted. Tim Barclay MD Past Med/Surg History Problem List Generalized weakness (Acute) Acute UTI (Acute) COVID-19 (Acute) Balance problem Vitamin D deficiency (Chronic) Vitamin B12 deficiency (Chronic) Osteopenia (Chronic) Incomplete bladder emptying (Chronic) Arrhythmia (Chronic) Status post right knee replacement (~12/2020) Abnormal glucose Recurrent UTI (urinary tract infection) Urgency incontinence Pelvic prolapse (Chronic) Hypertension Medical History Eczema Sinus bradycardia Per records, patient denies (NSR on preop EKG 04/20/23) Orthostatic hypotension Post-op episodes Compression fx, lumbar spine hx - no surgery Obesity Arthritis Cancer Right breast (1991) DVT (deep venous thrombosis) S/P childbirth 50 years ago, no issues since Dyslipidemia Dysmetabolic syndrome X Surgical History History of lumpectomy of right breast H/O abdominal hysterectomy Hx of tonsillectomy Hx of appendectomy Hx of total knee arthroplasty R/L History of hip replacement R/L (x5 total procedures) Family History Mother Cardiac disorder Myocardial infarction Father Myocardial infarction Sister Hypertension Other No family history of adverse response to anesthesia Denies family history of Colon cancer Ovarian cancer Prostate cancer Breast cancer Social History Smoking Status: Never smoker Second Hand Exposure: No; Do You Dip or Chew Tobacco: No; Hx Alcohol Use: No Hx Substance Use: No Preferred Language: Samoan Communication Ability: Effective Visual Impairment: No Limitations Hearing Ability: Normal [employer] Associate Required: No Beliefs That Will Affect Care: None marital status: Current Living Situation: Spouse current occupational status: retired How many Children do You have: 2 Feels Safe at Home: Yes Safety Concerns: Feels Safe At This Time Childhood Exposure to Second-Hand Smoke: No Diet: regular caffeine: Yes during the past year weight has: remained stable Dental Care, Regularly: Yes Physical Activity Frequency: Does not Exercise Physical Activity Frequency Comment: Limited by physical condition Seatbelt Use: always Sunscreen Use: No Assistive Devices: Walker and Wheelchair Allergies Allergies Allergy/AdvReac Type Severity Reaction Status Date / Time Sulfa (Sulfonamide Allergy Intermediate Hives Verified 10/08/24 00:19 Antibiotics) tramadol AdvReac Severe Hallucinati Verified 10/08/24 00:19 ons hydrochlorothiazide AdvReac Intermediate Disorientat Verified 10/08/24 00:19 [From Dyazide] ion Home Meds Home Medications Medication Instructions Recorded Confirmed acetaminophen 500 mg capsule 1,000 mg PO Q6H PRN Pain 11/20/20 10/08/24 cranberry extract 500 mg capsule 500 mg PO QAM 04/28/23 10/08/24 triamcinolone acetonide 0.1 % 1 applic topical BID PRN Skin 10/08/24 10/08/24 topical cream Irritation Previous Rx's Medication Instructions Recorded loperamide 2 mg tablet (Imodium 2 mg PO Q6H PRN loose stool #30 07/09/22 A-D) tabs atenolol 50 mg tablet 50 mg PO QAM #90 tabs 09/14/24 lisinopril 20 mg tablet 20 mg PO QAM #90 tabs 09/14/24 Results & Data (ED) Vital Signs Vital Signs - 24 hr 10/07/24 23:22 10/07/24 23:25 10/08/24 00:03 Temperature 37.7 C H Temperature Source Oral Pulse Rate 100 H 93 H Pulse Rate [Apical] Respiratory Rate 18 Respiratory Effort / Characteristics Non-Labored Spontaneous Respiratory Depth Normal Respiratory Pattern Regular Blood Pressure 169/106 H Blood Pressure [Right Arm] Blood Pressure Mean 127 Blood Pressure Mean [Right Arm] Blood Pressure Position Semi-fowlers Blood Pressure Position [Right Arm] Pulse Oximetry 93 95 Oxygen Delivery Method Room Air Room Air Sepsis Recent Fever Within 48 Hours Yes Sepsis New/Unexplained Change in Mental Status No Sepsis Action Taken by Nursing No Action Required 10/08/24 00:03 10/08/24 00:16 10/08/24 00:39 Temperature 37.5 C Temperature Source Oral Pulse Rate Pulse Rate [Apical] 91 H 90 94 H Respiratory Rate 16 20 20 Respiratory Effort / Characteristics Respiratory Depth Respiratory Pattern Blood Pressure Blood Pressure [Right Arm] 148/93 H 184/108 H Blood Pressure Mean Blood Pressure Mean [Right Arm] 111 133 Blood Pressure Position Blood Pressure Position [Right Arm] Semi-fowlers Semi-fowlers Pulse Oximetry 94 96 96 Oxygen Delivery Method Room Air Room Air Room Air Sepsis Recent Fever Within 48 Hours Sepsis New/Unexplained Change in Mental Status Sepsis Action Taken by Nursing 10/08/24 01:00 10/08/24 01:30 10/08/24 01:45 Temperature 36.8 C Temperature Source Oral Pulse Rate Pulse Rate [Apical] 80 82 85 Respiratory Rate 20 20 16 Respiratory Effort / Characteristics Respiratory Depth Respiratory Pattern Blood Pressure Blood Pressure [Right Arm] 155/87 H 142/87 H 161/106 H Blood Pressure Mean Blood Pressure Mean [Right Arm] 109 105 124 Blood Pressure Position Blood Pressure Position [Right Arm] Semi-fowlers Semi-fowlers Semi-fowlers Pulse Oximetry 95 92 92 Oxygen Delivery Method Room Air Room Air Room Air Sepsis Recent Fever Within 48 Hours Sepsis New/Unexplained Change in Mental Status Sepsis Action Taken by Nursing Laboratory Data Attestation: I reviewed the patient's lab results. 10/08/24 05:45 10/08/24 05:45 Lab Results 10/07/24 10/07/24 10/08/24 Range/Units 23:50 23:54 00:30 WBC 9.17 (4.8-10.8) K/ul RBC 3.54 L (4.20-5.40) M/uL Hgb 11.3 L (12.0-16.0) g/dl Hct 33.4 L (37.0-47.0) % MCV 94.4 (80.0-100.0) fL MCH 31.9 (25.0-34.0) pg MCHC 33.8 (32.0-36.0) g/dL RDW Std Deviation 45.8 (36.4-46.3) fL RDW Coeff of Ariel 13.5 (11.5-14.5) % Plt Count 145 (130-400) K/uL MPV 10.5 (9.4-12.4) fL Immature Gran % (Auto) 0.5 % Neut % (Auto) 87.6 % Lymph % (Auto) 5.7 % [place] % (Auto) 6.1 % Eos % (Auto) 0.0 % Baso % (Auto) 0.1 % Neut # (Auto) 8.03 H (1.40-6.50) K/uL Lymph # (Auto) 0.52 L (1.20-3.40) K/uL [place] # (Auto) 0.56 (0.11-0.59) K/uL Eos # (Auto) 0.00 (0.00-0.50) K/uL Baso # (Auto) 0.01 (0.00-0.20) K/uL Immature Gran # (Auto) 0.05 (0.01-0.20) K/uL PT 10.3 (9.0-12.0) Seconds INR 0.9 (0.9-1.1) Sodium 135 L (136-145) mmol/L Potassium 3.9 (3.5-5.1) mmol/L Chloride 103 (98-107) mmol/L Carbon Dioxide 26 (21-32) mmol/L Anion Gap 6 (3-11) BUN 21 (6-23) mg/dl Creatinine 1.05 (0.6-1.2) mg/dl Est Cr Clr Drug Dosing 44.1 ml/min eGFR 54.05 BUN/Creatinine Ratio 20.0 (10-20) Glucose 132 H (70-99(Fasting)) mg/dl Lactate (0.4-2.0) mmol/L Calcium 8.9 (8.6-10.3) mg/dl Magnesium 1.4 L (1.7-2.4) mg/dl Total Bilirubin 0.7 (0.2-1.0) mg/dl Direct Bilirubin 0.1 (0-0.2) mg/dl AST 19 (13-39) U/L ALT 9 (7-52) U/L Alkaline Phosphatase 64 (34-104) U/L Troponin I High Sens 75.0 H* (0-14) pg/ml Total Protein 7.1 (6.0-8.3) gm/dl Albumin 3.8 (3.4-5.0) gm/dl Lipase 38 (11-82) U/L Procalcitonin 6.04 H (0-0.5) ng/ml TSH 1.103 (0.300-4.500) uIu/ml Urine Color Yellow Urine Appearance Cloudy A (Clear) Urine pH 5.5 (4.5-7.5) Ur Specific [place] 1.022 (1.000-1.030) Urine Protein 4+ H (Negative) Urine Glucose (UA) Negative (Negative) Urine Ketones 1+ H (Negative) Urine Blood 2+ H (Negative) Urine Nitrite Negative (Negative) Urine Bilirubin Negative (Negative) Urine Urobilinogen Negative (Negative) Ur Leukocyte Esterase Negative (Negative) Urine WBC (Auto) 0-5 (0-5) /hpf Urine RBC (Auto) 11-20 H (0-2) /hpf U Hyaline Cast (Auto) >20 H (0-2) /lpf U Epithel Cells (Auto) 6-10 H (0-2) /hpf Urine Bacteria (Auto) 1+ H (None Seen) Adenovirus (PCR) Not Detected (NotDetected) B. pertussis DNA (PCR) Not Detected (NotDetected) B.parapertussis DNA PCR Not Detected (NotDetected) C. pneumoniae DNA (PCR) Not Detected (NotDetected) Coronavirus OC43 (PCR) Not Detected (NotDetected) Coronavirus HKU1 (PCR) Not Detected (NotDetected) Coronavirus 229E (PCR) Not Detected (NotDetected) SARS-CoV-2 (PCR) DETECTED A (NotDetected) Coronavirus NL63 (PCR) Not Detected (NotDetected) Human Metapneumovir PCR Not Detected (NotDetected) Influenza Type A (PCR) Not Detected (NotDetected) Influenza Type B (PCR) Not Detected (NotDetected) M. pneumoniae (PCR) Not Detected (NotDetected) Parainfluenza 1 (PCR) Not Detected (NotDetected) Parainfluenza 2 (PCR) Not Detected (NotDetected) Parainfluenza 3 (PCR) Not Detected (NotDetected) Parainfluenza 4 (PCR) Not Detected (NotDetected) RSV (PCR) Not Detected (NotDetected) Entero/Rhino (PCR) Not Detected (NotDetected) 10/08/24 10/08/24 Range/Units 00:55 01:54 WBC (4.8-10.8) K/ul RBC (4.20-5.40) M/uL Hgb (12.0-16.0) g/dl Hct (37.0-47.0) % MCV (80.0-100.0) fL MCH (25.0-34.0) pg MCHC (32.0-36.0) g/dL RDW Std Deviation (36.4-46.3) fL RDW Coeff of Ariel (11.5-14.5) % Plt Count (130-400) K/uL MPV (9.4-12.4) fL Immature Gran % (Auto) % Neut % (Auto) % Lymph % (Auto) % [place] % (Auto) % Eos % (Auto) % Baso % (Auto) % Neut # (Auto) (1.40-6.50) K/uL Lymph # (Auto) (1.20-3.40) K/uL [place] # (Auto) (0.11-0.59) K/uL Eos # (Auto) (0.00-0.50) K/uL Baso # (Auto) (0.00-0.20) K/uL Immature Gran # (Auto) (0.01-0.20) K/uL PT (9.0-12.0) Seconds INR (0.9-1.1) Sodium (136-145) mmol/L Potassium (3.5-5.1) mmol/L Chloride (98-107) mmol/L Carbon Dioxide (21-32) mmol/L Anion Gap (3-11) BUN (6-23) mg/dl Creatinine (0.6-1.2) mg/dl Est Cr Clr Drug Dosing ml/min eGFR BUN/Creatinine Ratio (10-20) Glucose (70-99(Fasting)) mg/dl Lactate 1.1 (0.4-2.0) mmol/L Calcium (8.6-10.3) mg/dl Magnesium (1.7-2.4) mg/dl Total Bilirubin (0.2-1.0) mg/dl Direct Bilirubin (0-0.2) mg/dl AST (13-39) U/L ALT (7-52) U/L Alkaline Phosphatase (34-104) U/L Troponin I High Sens 109.7 H* D (0-14) pg/ml Total Protein (6.0-8.3) gm/dl Albumin (3.4-5.0) gm/dl Lipase (11-82) U/L Procalcitonin (0-0.5) ng/ml TSH (0.300-4.500) uIu/ml Urine Color Urine Appearance (Clear) Urine pH (4.5-7.5) Ur Specific [place] (1.000-1.030) Urine Protein (Negative) Urine Glucose (UA) (Negative) Urine Ketones (Negative) Urine Blood (Negative) Urine Nitrite (Negative) Urine Bilirubin (Negative) Urine Urobilinogen (Negative) Ur Leukocyte Esterase (Negative) Urine WBC (Auto) (0-5) /hpf Urine RBC (Auto) (0-2) /hpf U Hyaline Cast (Auto) (0-2) /lpf U Epithel Cells (Auto) (0-2) /hpf Urine Bacteria (Auto) (None Seen) Adenovirus (PCR) (NotDetected) B. pertussis DNA (PCR) (NotDetected) B.parapertussis DNA PCR (NotDetected) C. pneumoniae DNA (PCR) (NotDetected) Coronavirus OC43 (PCR) (NotDetected) Coronavirus HKU1 (PCR) (NotDetected) Coronavirus 229E (PCR) (NotDetected) SARS-CoV-2 (PCR) (NotDetected) Coronavirus NL63 (PCR) (NotDetected) Human Metapneumovir PCR (NotDetected) Influenza Type A (PCR) (NotDetected) Influenza Type B (PCR) (NotDetected) M. pneumoniae (PCR) (NotDetected) Parainfluenza 1 (PCR) (NotDetected) Parainfluenza 2 (PCR) (NotDetected) Parainfluenza 3 (PCR) (NotDetected) Parainfluenza 4 (PCR) (NotDetected) RSV (PCR) (NotDetected) Entero/Rhino (PCR) (NotDetected) Administered Medications Parenteral Electrolytes (Plasma-Lyte A Ph 7.4) 1,000 mls @ 80 mls/hr IV .[id number] [facility] Stop: 10/08/24 14:59 Last Admin: 10/08/24 04:30 Dose: 80 mls/hr Documented By: SADIE Discontinued Medications Dexamethasone (Dexamethasone Sod Inj 4 Mg/Ml Vial) 6 mg IV NOW STA Stop: 10/08/24 01:50 Last Admin: 10/08/24 02:02 Dose: 6 mg Documented By: ADRIEN Acetaminophen (Ofirmev) 1,000 mg in 100 mls @ 400 mls/hr IV NOW STA Stop: 10/08/24 00:09 Last Infusion: 10/08/24 00:38 Dose: Infused Documented By: Admin: 10/08/24 00:13 Dose: 400 mls/hr Documented By: EMB Famotidine (Pepcid 20mg Iv Push) 20 mg in 5 mls @ 2.5 mls/min IV NOW STA Stop: 10/07/24 23:56 Last Admin: 10/08/24 00:11 Dose: 2.5 mls/min Documented By: EMB Sodium Chloride (Nss) 1,000 mls @ 999 mls/hr IV .[id number] ALICIA Stop: 10/08/24 01:45 Last Infusion: 10/08/24 01:40 Dose: Infused Documented By: Admin: 10/08/24 00:38 Dose: 999 mls/hr Documented By: Infusion: 10/08/24 00:38 Dose: Infused Documented By: Admin: 10/08/24 00:11 Dose: 999 mls/hr Documented By: EMB Ceftriaxone Sodium (Rocephin) 2,000 mg in 50 mls @ 100 mls/hr IV NOW STA Stop: 10/08/24 00:26 Last Infusion: 10/08/24 01:40 Dose: Infused Documented By: Admin: 10/08/24 00:56 Dose: 100 mls/hr Documented By: EMB Remdesivir 200 mg/ Sodium (Chloride) 250 mls @ 125 mls/hr IV ONE STA Stop: 10/08/24 03:48 Last Infusion: 10/08/24 04:28 Dose: Infused Documented By: Admin: 10/08/24 02:21 Dose: 125 mls/hr Documented By: EMB Imaging Data Radiologist's Impression: Chest X-Ray 10/07/24 23:55 EXAM: XR chest 1V portable CLINICAL HISTORY: Sepsis. TECHNIQUE: An X-ray image of the chest is obtained in AP projection. COMPARISON: CR 04/20/2023. FINDINGS: Pulmonary Parenchyma: Prominent bilateral bronchovascular markings. No evidence of consolidation, collapse, or focal opacities. No pulmonary nodules are identified. No evidence of pleural effusion or pleural thickening. Heart and Mediastinum: Despite portable projection, there is a normal configuration of the mediastinum and the cardiac size is normal. Ascending right hemidiaphragm. Atheromatous calcifications in aortic arch. Bony Thorax: Severe Glenohumeral degenerative changes. Degenerative changes involving the spine Soft Tissues: Soft tissues overlying the chest wall are unremarkable. Cardiac monitoring electrodes. Metallic genesis in the right upper chest wall. IMPRESSION: 1. Prominent bilateral broncho vascular markings. These could probably represent early/mild inflammatory/infectious etiology. Correlate clinically. Interval new finding. 2. Redemonstration of the elevated right dome of the diaphragm. Electronically signed by Nikhil Pat 10-08-2024 12:54 AM Knee X-Ray 10/07/24 23:57 EXAM: XR knee RT 3V CLINICAL HISTORY: Pain. TECHNIQUE: X-ray images of the right knee were obtained in anteroposterior (AP), lateral (crosstable), and sunrise/skyline (patellar) projections. COMPARISON: 01/27/2022. FINDINGS: Bone Structure: Knee replacement is seen. No evident loosening or infection. Bone structure is normal and well-aligned. No evidence of acute fractures or dislocations. No osseous lesions or abnormalities identified. Joint Spaces: Joint spaces are preserved. Articular Surfaces: No signs of osteophyte formation. No evident hardware failure. Patella: Patella is normal in position and alignment. No evidence of patellar dislocation or subluxation. Marginal osteophytes noted. Soft Tissues: Periarticular soft tissues appear normal and unremarkable. Additional Findings: No inflammatory arthropathy. No evidence of joint effusion. IMPRESSION: Knee replacement is seen. No evident loosening or infection. No evidence of acute fractures, dislocations, or significant degenerative changes. No significant interval changes. Disclaimer: A subtle bone abnormality or fracture may not be readily apparent on X-rays, thus clinical correlation and further imaging including follow-up CT, MRI, or follow-up X-rays are advised as needed. Electronically signed by Nikhil Pat 10-08-2024 01:35 AM Knee X-Ray 10/07/24 23:57 EXAM: XR knee LT 3V CLINICAL HISTORY: Pain. TECHNIQUE: X-ray images of the left knee were obtained in anteroposterior (AP), lateral, and sunrise/skyline (patellar) projections. COMPARISON: 01/27/2022. FINDINGS: Bone Structure: Total knee replacemnt is seen. No evident loosening or infection. Bone structure is normal and well-aligned. No evidence of acute fractures or dislocations. No osseous lesions or abnormalities identified. Joint Spaces: Joint spaces are preserved. No significant narrowing of the medial or lateral compartments. Articular Surfaces: No signs of osteophyte formation. No evident hardware failure. Patella: Patella is normal in position and alignment. No evidence of patellar dislocation or subluxation. marginal ostteophytes noted. Soft Tissues: Soft tissue foci and streaks of calcifications are seen. Mild interval progression. IMPRESSION: 1. Stable total hector replacement is seen. No evident loosening or infection. 2. No evidence of acute fractures or dislocations. 3. Soft tissue foci and streaks of calcifications are seen. Mild interval progression. Disclaimer: A subtle bone abnormality or fracture may not be readily apparent on X-rays, thus clinical correlation and further imaging including follow-up CT, MRI, or follow-up X-rays are advised as needed. Electronically signed by Nikhil Pat 10-08-2024 01:34 AM Discharge Plan Visit Data Chief Complaint: Fall Stated Complaint: GROUND LEVEL FALL, BILATERAL KNEE PAIN ED Provider: Tim Barclay Discharge Problem: COVID-19, Acute UTI, Generalized weakness Patient Disposition: Admitted As Inpatient Discharge Instructions Interventions: ED Discharge Assessment Last Done: 10/08/24 03:50
[2024-10-08] MEDS: SODIUM CHLORIDE 0.9% 1,000 ML IV SCH (00:11)
[2024-10-08] MEDS: FAMOTIDINE 20MG IV PUSH 20 MG/5 ML SYR IV STA (00:11)
[2024-10-08] MEDS: ACETAMINOPHEN 1,000 MG/100 ML VIAL IV STA (00:13)
[2024-10-08 00:15] LABS: Basophils # (auto) 0.01 K/uL (0.00-0.20); Basophils % (auto) 0.1 %; Hematocrit (blood only) 33.4 % (37.0-47.0); Hemoglobin 11.3 g/dl (12.0-16.0); Immature Granulocytes # (auto) 0.05 K/uL (0.01-0.20); Immature Granulocytes % (auto) 0.5 %; Lymphocytes # (auto) 0.52 K/uL (1.20-3.40); Lymphocytes % (auto) 5.7 %; Mean Corpuscular Hemoglobin 31.9 pg (25.0-34.0); Mean Corpuscular Hgb Conc 33.8 g/dL (32.0-36.0); Mean Corpuscular Volume 94.4 fL (80.0-100.0); Mean Platelet Volume 10.5 fL (9.4-12.4); Monocytes # (auto) 0.56 K/uL (0.11-0.59); Monocytes % (auto) 6.1 %; Neutrophils # (auto) 8.03 K/uL (1.40-6.50); Neutrophils % (auto) 87.6 %; Platelet Count 145 K/uL (130-400); RDW Coefficient of Variation 13.5 % (11.5-14.5); RDW Standard Deviation 45.8 fL (36.4-46.3); Red Blood Count 3.54 M/uL (4.20-5.40); White Blood Count 9.17 K/ul (4.8-10.8)
[2024-10-08 00:35] LABS: INR 0.9 (0.9-1.1); Prothrombin Time 10.3 Seconds (9.0-12.0)
[2024-10-08 00:38] LABS: Albumin Level 3.8 gm/dl (3.4-5.0); Bilirubin Direct 0.1 mg/dl (0-0.2); Bilirubin,Total 0.7 mg/dl (0.2-1.0); Calcium 8.9 mg/dl (8.6-10.3); Creatinine Clr Calc Pharmacy 44.1 ml/min; Magnesium 1.4 mg/dl (1.7-2.4); Potassium 3.9 mmol/L (3.5-5.1); Total Protein 7.1 gm/dl (6.0-8.3)
[2024-10-08 00:53] LABS: Thyroid Stimulating Hormone 1.103 uIu/ml (0.300-4.500)
--- NOTE | 2024-10-08 00:55 | XRay Report ---
EXAM: XR chest 1V portable CLINICAL HISTORY: Sepsis. TECHNIQUE: An X-ray image of the chest is obtained in AP projection. COMPARISON: CR 04/20/2023. FINDINGS: Pulmonary Parenchyma: Prominent bilateral bronchovascular markings. No evidence of consolidation, collapse, or focal opacities. No pulmonary nodules are identified. No evidence of pleural effusion or pleural thickening. Heart and Mediastinum: Despite portable projection, there is a normal configuration of the mediastinum and the cardiac size is normal. Ascending right hemidiaphragm. Atheromatous calcifications in aortic arch. Bony Thorax: Severe Glenohumeral degenerative changes. Degenerative changes involving the spine Soft Tissues: Soft tissues overlying the chest wall are unremarkable. Cardiac monitoring electrodes. Metallic genesis in the right upper chest wall. IMPRESSION: 1. Prominent bilateral broncho vascular markings. These could probably represent early/mild inflammatory/infectious etiology. Correlate clinically. Interval new finding. 2. Redemonstration of the elevated right dome of the diaphragm. Electronically signed by Nikhil Pat 10-08-2024 12:54 AM
[2024-10-08] MEDS: cefTRIAXone SODIUM 2,000 MG/50 ML BAG IV STA (00:56)
[2024-10-08 00:58] LABS: Adenovirus PCR Not Detected (NotDetected); Bordetella parapertussis PCR Not Detected (NotDetected); Bordetella pertussis PCR Not Detected (NotDetected); Chlamydia pneumoniae PCR Not Detected (NotDetected); Coronavirus 229E PCR Not Detected (NotDetected); Coronavirus CoV-2 (COVID19)PCR DETECTED (NotDetected); Coronavirus HKU1 PCR Not Detected (NotDetected); Coronavirus NL63 PCR Not Detected (NotDetected); Coronavirus OC43PCR Not Detected (NotDetected); Human Metapneumovirus PCR Not Detected (NotDetected); Influenza A PCR Not Detected (NotDetected); Influenza B PCR Not Detected (NotDetected); Mycoplasma pneumoniae PCR Not Detected (NotDetected); Parainfluenza Virus 1 PCR Not Detected (NotDetected); Parainfluenza Virus 2 PCR Not Detected (NotDetected); Parainfluenza Virus 3 PCR Not Detected (NotDetected); Parainfluenza Virus 4 PCR Not Detected (NotDetected); Respiratory Syncytial VirusPCR Not Detected (NotDetected); Rhinovirus/Enterovirus PCR Not Detected (NotDetected)
[2024-10-08 01:06] LABS: Appearance Urine Cloudy (Clear); Bacteria Urine Automated 1+ (None Seen); Bilirubin Urine Negative (Negative); Blood Urine 2+ (Negative); Cast Urine Automated >20 /lpf (0-2); Color Urine Yellow; Glucose Urine UA Negative (Negative); Ketones Urine 1+ (Negative); Leukocyte Esterase Urine Negative (Negative); Nitrite Urine Negative (Negative); Protein Urine 4+ (Negative); Specific Gravity Urine 1.022 (1.000-1.030); Urobilinogen Urine Negative (Negative); WBC Urine Automated 0-5 /hpf (0-5); pH Urine 5.5 (4.5-7.5)
--- NOTE | 2024-10-08 01:34 | XRay Report ---
EXAM: XR knee LT 3V CLINICAL HISTORY: Pain. TECHNIQUE: X-ray images of the left knee were obtained in anteroposterior (AP), lateral, and sunrise/skyline (patellar) projections. COMPARISON: 01/27/2022. FINDINGS: Bone Structure: Total knee replacemnt is seen. No evident loosening or infection. Bone structure is normal and well-aligned. No evidence of acute fractures or dislocations. No osseous lesions or abnormalities identified. Joint Spaces: Joint spaces are preserved. No significant narrowing of the medial or lateral compartments. Articular Surfaces: No signs of osteophyte formation. No evident hardware failure. Patella: Patella is normal in position and alignment. No evidence of patellar dislocation or subluxation. marginal ostteophytes noted. Soft Tissues: Soft tissue foci and streaks of calcifications are seen. Mild interval progression. IMPRESSION: 1. Stable total hector replacement is seen. No evident loosening or infection. 2. No evidence of acute fractures or dislocations. 3. Soft tissue foci and streaks of calcifications are seen. Mild interval progression. Disclaimer: A subtle bone abnormality or fracture may not be readily apparent on X-rays, thus clinical correlation and further imaging including follow-up CT, MRI, or follow-up X-rays are advised as needed. Electronically signed by Nikhil Pat 10-08-2024 01:34 AM
--- NOTE | 2024-10-08 01:35 | XRay Report ---
EXAM: XR knee RT 3V CLINICAL HISTORY: Pain. TECHNIQUE: X-ray images of the right knee were obtained in anteroposterior (AP), lateral (crosstable), and sunrise/skyline (patellar) projections. COMPARISON: 01/27/2022. FINDINGS: Bone Structure: Knee replacement is seen. No evident loosening or infection. Bone structure is normal and well-aligned. No evidence of acute fractures or dislocations. No osseous lesions or abnormalities identified. Joint Spaces: Joint spaces are preserved. Articular Surfaces: No signs of osteophyte formation. No evident hardware failure. Patella: Patella is normal in position and alignment. No evidence of patellar dislocation or subluxation. Marginal osteophytes noted. Soft Tissues: Periarticular soft tissues appear normal and unremarkable. Additional Findings: No inflammatory arthropathy. No evidence of joint effusion. IMPRESSION: Knee replacement is seen. No evident loosening or infection. No evidence of acute fractures, dislocations, or significant degenerative changes. No significant interval changes. Disclaimer: A subtle bone abnormality or fracture may not be readily apparent on X-rays, thus clinical correlation and further imaging including follow-up CT, MRI, or follow-up X-rays are advised as needed. Electronically signed by Nikhil Pat 10-08-2024 01:35 AM
[2024-10-08] MEDS: DEXAMETHASONE SOD INJ 4 MG/ML VIAL IV STA (02:02)
--- NOTE | 2024-10-08 02:19 | History & Physical Report ---
Date of Service October 08, 2024 Assessment & Plan (1) Generalized weakness: (2) Acute UTI: (3) COVID-19: (4) Hypertension: Plan 78 y/o PMH of hypertension, pelvic prolapse, recurrent urinary tract infection, vitamin D deficiency and vitamin b12 deficiency presented to the Ed due to weakness/ fall and URI. Patient found with Covid. Covid 19 - Symptoms started on with URI illness - patient states generalized weakness around when symptoms started - Patient on room air, sat 95% on evaluation - No leukocytosis, normal lactate acid - procal elevated - No signs of superimposed bacteria on exam today. No wheezing, no rhonci on exam - CXR: Prominent bilateral vascular markings. No consolidation, no effusion - Dexamethasone 6 mg daily - Remdesivir IV - Oxygen as needed - Mucinex BID - IV plasmalyte 80ml/hr - Continue supportive treatment - Labs AM Weakness/ Fall - Patient states she fall while trying to stand up. Refers had some dizziness. Denied any tunnel vision - Denied any trauma on head, no LOC - Patient with recent new murmur, pending outpatient work up - DDx: dehydration, weakness secondary to acute illness, cardiology etiology, poor po intake - will monitor on telemetry - Knee Xray: No evidence of acute fractures or dislocations. - Echocardiogram ordered - Orthostatic vitals - s/p 1L NSS in ED - IV plasmalyte 80 ml/hr - PT/ OT - CBC, BMP AM Elevated troponin - No chest pain - Suspicious of demand ischemia in the setting of dehydration and current ilness - EKG: sinus rhythm with pVc, no ST elevation or depression - Troponin 75 - Will continue to trend Recurrent UTI - UA: RBC+, Urine bacteria +, Epithelial cells + - S/p Ceftriaxone - patient asymptomatic - will hold on antibiotic at this time - Follow Urine culture HTN: continue atenolol, lisinopril FEN: Code status: full code DVT ppx: Lovenox sq q24 Held home meds: _ Isolation: Covid precautions Dispo: med/surg with telemetry History of Present Illness Chief Complaint: 78 y/o PMH of hypertension, pelvic prolapse, recurrent urinary tract infection, vitamin D deficiency and vitamin b12 deficiency presented to the Ed due to weakness/ fall and URI. Patient found with Covid. Patient states she tried to stand up from a chair and slipped out of it. She states hit both of her knees. She was unable to stand up on her own. She states that had been drinking and eating less due to sore throat. Did not head her head. Denied nay chest pain, SOB, palpitations. Denied any LOC. Denied any dysuria, frequency or urgency. ED course: Ceftriaxone IV, Tylenol IV, Femotidine. 1L NSS Primary Care Provider: Antonia Sue MD Allergies Allergy/AdvReac Type Severity Reaction Status Date / Time Sulfa (Sulfonamide Allergy Intermediate Hives Verified 10/08/24 00:19 Antibiotics) tramadol AdvReac Severe Hallucinati Verified 10/08/24 00:19 ons hydrochlorothiazide AdvReac Intermediate Disorientat Verified 10/08/24 00:19 [From Dyazide] ion Home Medications Medication Instructions Recorded Confirmed Type acetaminophen 500 mg capsule 1,000 mg PO Q6H PRN Pain 11/20/20 10/08/24 History loperamide 2 mg tablet (Imodium 2 mg PO Q6H PRN loose stool #30 07/09/22 10/08/24 Rx A-D) tabs cranberry extract 500 mg capsule 500 mg PO QAM 04/28/23 10/08/24 History atenolol 50 mg tablet 50 mg PO QAM #90 tabs 09/14/24 10/08/24 Rx lisinopril 20 mg tablet 20 mg PO QAM #90 tabs 09/14/24 10/08/24 Rx triamcinolone acetonide 0.1 % 1 applic topical BID PRN Skin 10/08/24 10/08/24 History topical cream Irritation Past Med/Surg History Problem List (Updated 10/08/24 @ 03:55 by Background Dajacques) Generalized weakness (Acute) Acute UTI (Acute) COVID-19 (Acute) Balance problem Vitamin D deficiency (Chronic) Vitamin B12 deficiency (Chronic) Osteopenia (Chronic) Incomplete bladder emptying (Chronic) Arrhythmia (Chronic) Status post right knee replacement (~12/2020) Abnormal glucose Recurrent UTI (urinary tract infection) Urgency incontinence Pelvic prolapse (Chronic) Hypertension Medical History Arthritis Cancer Compression fx, lumbar spine DVT (deep venous thrombosis) Dyslipidemia Dysmetabolic syndrome X Eczema Obesity Orthostatic hypotension Sinus bradycardia Surgical History H/O abdominal hysterectomy History of hip replacement History of lumpectomy of right breast Hx of appendectomy Hx of tonsillectomy Hx of total knee arthroplasty Family History Mother Cardiac disorder Myocardial infarction Father Myocardial infarction Sister Hypertension Other No family history of adverse response to anesthesia Denies family history of Colon cancer Ovarian cancer Prostate cancer Breast cancer Social History Smoking Status: Never smoker Second Hand Exposure: No; Do You Dip or Chew Tobacco: No; Hx Alcohol Use: No Hx Substance Use: No Preferred Language: Fijian Communication Ability: Effective Visual Impairment: No Limitations Hearing Ability: Normal Patient Safety Sitter Required: No Beliefs That Will Affect Care: None marital status: Current Living Situation: Spouse current occupational status: retired How many Children do You have: 2 Feels Safe at Home: Yes Safety Concerns: Feels Safe At This Time Childhood Exposure to Second-Hand Smoke: No Diet: regular caffeine: Yes during the past year weight has: remained stable Dental Care, Regularly: Yes Physical Activity Frequency: Does not Exercise Physical Activity Frequency Comment: Limited by physical condition Seatbelt Use: always Sunscreen Use: No Assistive Devices: Walker and Wheelchair Review of Systems Review of Systems: as per hpi Physical Exam Constitutional: WD/WN, vitals as above Eyes: PERRL, conjunctivae normal, anicteric sclerae ENMT: external ear and nose normal, oropharynx normal Respiratory: normal respiratory effort, lungs clear to auscultation Cardiovascular: RRR, no murmur, no edema Gastrointestinal (Abdomen): normal bowel sounds, soft, nontender, no hepatosplenomegaly Skin: no rashes, warm and dry Results & Data Results & Data Vital Signs (Past 12 Hours) Vital Signs Temp Pulse Pulse Resp BP BP Pulse Ox 10/08/24 01:00 80 20 155/87 H 95 10/08/24 00:39 94 H 20 184/108 H 96 10/08/24 00:16 37.5 C 90 20 148/93 H 96 10/08/24 00:03 91 H 16 94 10/08/24 00:03 95 10/07/24 23:25 37.7 C H 93 H 18 169/106 H 93 10/07/24 23:22 100 H O2 Del Method 10/08/24 01:00 Room Air 10/08/24 00:39 Room Air 10/08/24 00:16 Room Air 10/08/24 00:03 Room Air 10/08/24 00:03 Room Air 10/07/24 23:25 Room Air 10/07/24 23:22 Supervising Physician Co-Signing Physician Notes Attending addendum: I have physically seen this patient, have supervised the medical residents activities, and agree with the H&P unless as otherwise noted. Assessment and Plan: The patient is a 78-year-old female with past medical history including hypertension, pelvic prolapse, recurrent urinary tract infection, vitamin D deficiency, B12 deficiency, osteopenia, arrhythmia, and right total knee arthroplasty. She presents to the emergency department with complaints of generalized weakness, recent fall and URI symptoms. In the emergency department respiratory [employer] testing was positive for COVID, and urinalysis was suggestive of urinary tract infection. The patient is referred for evaluation to the [facility] for treatment. COVID-19 infection/URI symptoms- COVID precautions Oxygen saturation presently 95% on room air Placed on dexamethasone 6 mg IV now, and every morning Remdesivir IV per protocol Mucinex 600 mg p.o. every 12 hours Nasal cannula oxygen, titrate to keep pulse ox around 92-94% Plasma-Lyte at 80 mL/h x 1 L Follow serial CBC with differential and chemistry profile Urinary tract infection- Follow urine culture and sensitivity Received ceftriaxone 2 g IV in ED, and continue daily Elevated troponin/hypertension- The patient will be admitted to telemetry for serial cardiac enzymes, serial EKG's, cardiac rhythm monitoring and a 2-D echocardiogram with Dopplers. Troponin 75 with follow-up pending EKG with normal sinus rhythm, PVC, no acute ST-T changes Continue atenolol and lisinopril Resident Activity Tracking Resident Involvement: Resident Care Provided Care Provided: Adult Hospital Medicine
[2024-10-08] MEDS: REMDESIVIR 200 MG in SODIUM CHLORIDE 0.9% 210 ML IV STA (02:21)
[2024-10-08] MEDS ORDERED: POLYETHYLENE (MIRALAX) 17 GM PACK PO PRN (04:08)
[2024-10-08] MEDS: PLASMA-LYTE A 1,000 ML IV SCH (04:30)
[2024-10-08 06:21] LABS: Basophils # (auto) 0.01 K/uL (0.00-0.20); Basophils % (auto) 0.1 %; Hemoglobin 11.1 g/dl (12.0-16.0); Immature Granulocytes # (auto) 0.04 K/uL (0.01-0.20); Immature Granulocytes % (auto) 0.5 %; Lymphocytes # (auto) 0.62 K/uL (1.20-3.40); Lymphocytes % (auto) 8.1 %; Mean Corpuscular Hemoglobin 32.5 pg (25.0-34.0); Mean Corpuscular Hgb Conc 33.6 g/dL (32.0-36.0); Mean Corpuscular Volume 96.5 fL (80.0-100.0); Mean Platelet Volume 10.8 fL (9.4-12.4); Monocytes # (auto) 0.25 K/uL (0.11-0.59); Monocytes % (auto) 3.3 %; Platelet Count 137 K/uL (130-400); RDW Coefficient of Variation 13.6 % (11.5-14.5); RDW Standard Deviation 47.2 fL (36.4-46.3); Red Blood Count 3.42 M/uL (4.20-5.40); White Blood Count 7.62 K/ul (4.8-10.8)
[2024-10-08 06:47] LABS: BUN Creatinine Ratio 20.7 (10-20); Calcium 8.3 mg/dl (8.6-10.3); Creatinine Clr Calc Pharmacy 49.8 ml/min; Magnesium 1.5 mg/dl (1.7-2.4); Potassium 3.9 mmol/L (3.5-5.1)
[2024-10-08 06:54] LABS: INR 0.9 (0.9-1.1); Prothrombin Time 10.3 Seconds (9.0-12.0)
[2024-10-08] MEDS: ENOXAPARIN INJ 40 MG/0.4 ML SYR SQ SCH (07:46)
[2024-10-08] MEDS: guaiFENesin 600 MG TABCR PO SCH (07:47)
[2024-10-08] MEDS: lisinopril 20 MG TAB PO SCH (07:47)
[2024-10-08] MEDS: ATENOLOL 50 MG TABLET PO SCH (07:47)
--- NOTE | 2024-10-08 08:12 | Hospitalist Progress Note ---
"Date of Service October 08, 2024 Assessment & Plan (1) Generalized weakness: (2) Acute UTI: (3) COVID-19: (4) Hypertension: Plan 78 y/o PMH of hypertension, HLD (diet controlled) pelvic prolapse, recurrent urinary tract infection, vitamin D deficiency and vitamin b12 deficiency prese nted to the ED due to weakness/ fall and URI. Initial workup showing UTI and COVID. CXR: Prominent bilateral vascular markings. Knee xray no evidence of fractures of dislocations. No consolidation, no effusion. Admitted for oxygen titration, IV antibiotics and PT/OT evals. #Covid 19 Symptoms onset 10/07. Continue Dexamethasone and Remdesivir. Supportive care: Mucinex BID, IS Wean supplemental O2 as able, goal >92%. Baseline is room air #UTI Elevated procal on admission, with suspicious UA but not urinary symptoms, but with weakness Received Ceftriaxone in the ED, will continue until UC results #Weakness/ Fall | Dizziness Patient states she fell while trying to stand up - no head strike, no LOC Recent new murmur - echo pending Check orthostatic vitals (decreased atenolol for AM) Received 2L IVFs PT/OT pending # Elevated troponin No chest pain, EKG SR with PVCs no ST changes Suspicious of demand ischemia in the setting of dehydration and current illness Has not peaked yet, last trop 153.5, will continue to trend #HTN continue lisinopril Atenolol decreased to 25m qAM given bradycardia and dizziness mag replaced IV - recheck in AM DVT ppx: Lovenox sq q24 Dispo: continued inpatient stay, weaning O2, PT/OT daughter updated by phone 10/08 Admission and Anticipated Discharge Date Admission Date: October 08, 2024 Supervising Physician Co-Signing Physician Notes Attending Attestation: Chart reviewed, care plan d/w TACO Pedraza. I agree with the cartwright components of her documentation. Alfred Underwood MD Subjective Patient seen sitting up in the chair, eating lunch. No family at bedside. Patient reports still feeling quite lousy and rather congested. Baseline walks with a walker, no oxygen use. Denies any chest pain. Does report some dizziness when moving around but this has been happening occasionally at home as well Tele SR 50-80s Review of Systems Review of Systems: All systems reviewed & are unremarkable except as noted in Subjective Physical Exam Physical Exam: General: NAD, VS as above Resp: normal respiratory effort, on 2L, coarse breath sounds, no wheezing, + productive cough CV: bradycardic, no murmur, Abd: normal bowel sounds, non tender, no hepatosplenomegaly Extremities: Moves all extremities, Neuro: A&O x3, Skin: intact, no lesions noted Results & Data Results & Data Vital Signs (Past 12 Hours) Vital Signs Temp Pulse Pulse Resp BP BP Pulse Ox 10/08/24 04:38 98.1 F 75 18 158/90 H 93 10/08/24 04:08 98.1 F 75 18 158/90 H 93 10/08/24 04:08 10/08/24 04:08 10/08/24 04:08 10/08/24 03:50 68 18 160/88 H 94 10/08/24 02:45 72 18 150/87 H 93 10/08/24 02:17 89 L 10/08/24 02:15 74 18 141/83 H 10/08/24 01:45 98.2 F 85 16 161/106 H 92 10/08/24 01:30 82 20 142/87 H 92 10/08/24 01:00 80 20 155/87 H 95 10/08/24 00:39 94 H 20 184/108 H 96 10/08/24 00:16 99.5 F 90 20 148/93 H 96 10/08/24 00:03 91 H 16 94 10/08/24 00:03 95 10/07/24 23:25 99.9 F H 93 H 18 169/106 H 93 10/07/24 23:22 100 H Pulse Ox O2 Del Method O2 Del Method O2 Flow Rate O2 Flow Rate 10/08/24 04:38 Nasal Cannula 2 10/08/24 04:08 Nasal Cannula 2 10/08/24 04:08 Nasal Cannula 2 10/08/24 04:08 Nasal Cannula 2 10/08/24 04:08 93 Nasal Cannula 2 10/08/24 03:50 Nasal Cannula 4 10/08/24 02:45 Nasal Cannula 4 10/08/24 02:17 Room Air, Nasal Cannula 0 10/08/24 02:15 10/08/24 01:45 Room Air 10/08/24 01:30 Room Air 10/08/24 01:00 Room Air 10/08/24 00:39 Room Air 10/08/24 00:16 Room Air 10/08/24 00:03 Room Air 10/08/24 00:03 Room Air 10/07/24 23:25 Room Air 10/07/24 23:22 PG Care Time/CCT Total # of Minutes Spent Total Time Spent with Patient: Total time spent is greater than 50% in coordination of care (as documented) at patient's floor/unit and/or counseling patient: Coding Level of Care Code None Diagnoses Generalized weakness R53.1 Acute UTI N39.0 COVID-19 U07.1 Hypertension I10"
[2024-10-08] MEDS: MAGNESIUM SULFATE / D5W 1 GM/100 ML BAG IV SCH (09:24)
--- NOTE | 2024-10-08 14:10 | Electrocardiogram Report ---
Test Reason : Blood Pressure : */* mmHG Vent. Rate : 90 BPM Atrial Rate : 90 BPM P-R Int : 132 ms QRS Dur : 82 ms QT Int : 388 ms P-R-T Axes : 83 -30 35 degrees QTcB Int : 474 ms Sinus rhythm with Premature supraventricular complexes Left axis deviation Moderate voltage criteria for LVH, may be normal variant ( R in aVL , Benjamín product ) Nonspecific ST abnormality Abnormal ECG When compared with ECG of 20-Apr-2023 09:06, Premature supraventricular complexes are now Present QRS axis Shifted left Confirmed by Ailyn William ([place]) on 10/08/2024 2:10:28 PM Referred By: REFERRED SELF Confirmed By: Ailyn William
[2024-10-08] MEDS: COUGH DROP (SUGAR FREE) LOZ 24 LOZ/1 BOX BUCCAL PRN (20:24)
[2024-10-09] MEDS: cefTRIAXone SODIUM 2,000 MG/50 ML BAG IV SCH (00:46)
[2024-10-09] MEDS: REMDESIVIR 100 MG in SODIUM CHLORIDE 0.9% 230 ML IV SCH (01:17)
[2024-10-09] MEDS ORDERED: cefTRIAXone SODIUM 1,000 MG/50 ML BAG IV SCH (02:00)
[2024-10-09 06:33] LABS: Hematocrit (blood only) 27.8 % (37.0-47.0); Hemoglobin 9.4 g/dl (12.0-16.0); Mean Corpuscular Hemoglobin 32.4 pg (25.0-34.0); Mean Corpuscular Hgb Conc 33.8 g/dL (32.0-36.0); Mean Corpuscular Volume 95.9 fL (80.0-100.0); Platelet Count 123 K/uL (130-400); RDW Coefficient of Variation 13.8 % (11.5-14.5); RDW Standard Deviation 46.5 fL (36.4-46.3); White Blood Count 8.24 K/ul (4.8-10.8)
[2024-10-09 06:53] LABS: BUN Creatinine Ratio 23.3 (10-20); Creatinine Clr Calc Pharmacy 51.1 ml/min; Magnesium 1.9 mg/dl (1.7-2.4); Potassium 3.6 mmol/L (3.5-5.1)
[2024-10-09] MEDS: ATENOLOL 25 MG TABLET PO SCH (08:24)
[2024-10-09] MEDS: dexAMETHasone 6 MG in SYRINGE 0 ML IV SCH (08:25)
[2024-10-09] MEDS ORDERED: DEXAMETHASONE SOD INJ 4 MG/ML VIAL IV SCH (09:00)
[2024-10-09] MEDS: ALBUT/IPRATROP 3MG/0.5MG NEB 3 ML VIAL NEB SCH ×2 (12:21→15:09)
[2024-10-09] MEDS: ACETAMINOPHEN 325 MG TAB PO PRN (15:47)
--- NOTE | 2024-10-09 18:02 | Hospitalist Progress Note ---
"Date of Service October 09, 2024 Assessment & Plan (1) Generalized weakness: (2) Acute UTI: (3) COVID-19: (4) Hypertension: Plan 78 y/o PMH of hypertension, HLD (diet controlled) pelvic prolapse, recurrent urinary tract infection, vitamin D deficiency and vitamin b12 deficiency prese nted to the ED due to weakness/ fall and URI. Initial workup showing UTI and COVID. CXR: Prominent bilateral vascular markings. Knee xray no evidence of fractures of dislocations. No consolidation, no effusion. Admitted for oxygen titration, IV antibiotics and PT/OT evals. #Covid 19 Symptoms onset 10/07. Continue Dexamethasone and Remdesivir. Supportive care: Mucinex BID, IS, Duoneb q 8h Wean supplemental O2 as able, goal >92%. Baseline is room air #UTI CBC/BMP stable, repeat in AM Elevated procal on admission, with suspicious UA, UC pending Continue Rocephin pending culture #Weakness/ Fall | Dizziness Patient states she fell while trying to stand up - no head strike, no LOC Echo - EF >70%, mild mitral annular calcification, moderate mitral regurg, grade 1 diastolic dysfunction Orthostatic vitals negative Received 2L IVFs, additional 500cc given 10/09 PT/OT recommending rehab # Elevated troponin No chest pain, EKG SR with PVCs no ST changes Suspicious of demand ischemia in the setting of dehydration and current illness Troponin peaked at 153.5, now downtrending to 118.4 #HTN continue lisinopril Atenolol decreased to 25m qAM given bradycardia and dizziness mag replaced IV - mag stable. DVT ppx: Lovenox sq q24 Dispo: continued inpatient stay, weaning O2, PT/OT Admission and Anticipated Discharge Date Admission Date: October 09, 2024 Supervising Physician Co-Signing Physician Notes Attending Attestation: Chart reviewed, care plan d/w TACO Park. I agree with the cartwright components of her documentation. Cont Remdesivir/dexamethasone for COVID-19. Cont Rocephin for possible UTI. If fevers continue consider repeat cxr, etc. Blood cx's thus far negative. Alfred Underwood MD Subjective Patient seen and examined this morning. Patient reports she was not feeling well this morning. Reports she has a cough and congestion. Denied SOB or CP. Physical Exam Constitutional: WD/WN, vitals as above Eyes: PERRL, conjunctivae normal, anicteric sclerae Respiratory: rhonchi present Cardiovascular: RRR, no murmur, no edema Gastrointestinal (Abdomen): normal bowel sounds, soft, nontender, no hepatosplenomegaly Psychiatric: A+Ox3, euthymic affect Results & Data Results & Data Vital Signs (Past 12 Hours) Vital Signs Temp Pulse Pulse Resp BP Pulse Ox O2 Del Method 10/09/24 15:45 39.1 C H 64 25 H 172/87 H 93 Room Air 10/09/24 15:09 60 18 94 Room Air 10/09/24 11:03 37.3 C 55 L 20 161/78 H 92 Room Air 10/09/24 09:00 Room Air 10/09/24 08:00 36.8 C 53 L 14 118/72 97 Room Air 10/09/24 07:00 51 L PG Care Time/CCT Total # of Minutes Spent Total Time Spent with Patient: Total time spent is greater than 50% in coordination of care (as documented) at patient's floor/unit and/or counseling patient: Coding Level of Care Code 45529 SUB INP/OBS CARE 3/50MIN Diagnoses Generalized weakness R53.1 Acute UTI N39.0 COVID-19 U07.1 Hypertension I10"
[2024-10-09] MEDS: SODIUM CHLORIDE 0.9% 500 ML IV SCH (18:52)
[2024-10-10 06:14] LABS: Hematocrit (blood only) 28.4 % (37.0-47.0); Hemoglobin 9.4 g/dl (12.0-16.0); Mean Corpuscular Hemoglobin 31.6 pg (25.0-34.0); Mean Corpuscular Hgb Conc 33.1 g/dL (32.0-36.0); Mean Corpuscular Volume 95.6 fL (80.0-100.0); Mean Platelet Volume 10.2 fL (9.4-12.4); Platelet Count 120 K/uL (130-400); RDW Coefficient of Variation 13.8 % (11.5-14.5); RDW Standard Deviation 46.7 fL (36.4-46.3); Red Blood Count 2.97 M/uL (4.20-5.40); White Blood Count 8.69 K/ul (4.8-10.8)
[2024-10-10 06:28] LABS: BUN Creatinine Ratio 19.6 (10-20); Creatinine Clr Calc Pharmacy 47.5 ml/min; Potassium 3.7 mmol/L (3.5-5.1)
--- NOTE | 2024-10-10 09:02 | XRay Report ---
XR chest 1V portable CLINICAL HISTORY: fever, COVID COMPARISON STUDY: Chest CT December 15, 2020. Chest radiograph October 07, 2024. FINDINGS: Moderate elevation of the right hemidiaphragm is chronic. There is no pneumothorax or pleur al effusion. Cardiomegaly is unchanged. There is mild interstitial thickening. A small opacity within the lateral right midlung has developed. There is hazy left basilar opacity. Severe arthritis of bot h shoulders is incidentally noted. IMPRESSION: 1. Interval development of a right midlung airspace opacity. This favors an infectious etiology. 2. Hazy left basilar opacity which may be infectious or artifactual. 3. Cardiomegaly. Pulmonary vascular congestion with possible mild pulmonary edema. ACT 112: Negative or not required by law. Electronically signed by: Tim Grant M.D. 10/10/2024 9:00 AM
[2024-10-10] MEDS: AZITHROMYCIN 250 MG TAB PO ONE (10:51)
--- NOTE | 2024-10-10 15:46 | Hospitalist Progress Note ---
"Date of Service October 10, 2024 Assessment & Plan (1) Generalized weakness: (2) Acute UTI: (3) COVID-19: (4) Hypertension: (5) CAP (community acquired pneumonia): Plan 78 y/o PMH of hypertension, HLD (diet controlled) pelvic prolapse, recurrent urinary tract infection, vitamin D deficiency and vitamin b12 deficiency presented to the ED due to weakness/ fall and URI. #Covid 19/CAP Symptoms onset 10/07. Continue Dexamethasone. Remdesivir completed. Supportive care: Mucinex BID, IS, Duoneb q 8h CXR repeated 10/10 - concerning for right sided pneumonia. CBC/BMP remain stable. Continue Rocephin, added Azithromycin 10/10. #UTI Elevated procal on admission, with suspicious UA, UC contaminated. Will plan to treat for uncomplicated UTI. Continue Rocephin #Weakness/ Fall | Dizziness Patient states she fell while trying to stand up - no head strike, no LOC Echo - EF >70%, mild mitral annular calcification, moderate mitral regurg, grade 1 diastolic dysfunction Orthostatic vitals negative Received 2L IVFs, additional 500cc given 10/09 PT/OT recommending rehab, patient yet to meet w/ CM but seems patient would be agreeable to rehab. # Elevated troponin No chest pain, EKG SR with PVCs no ST changes Suspicious of demand ischemia in the setting of dehydration and current illness Troponin peaked at 153.5, now downtrending to 118.4 #HTN continue lisinopril Atenolol decreased to 25m qAM given bradycardia and dizziness mag replaced IV - mag stable. DVT ppx: Lovenox sq q24 Dispo: continued inpatient stay, weaning O2, PT/OT updated daughter via phone 10/10. Admission and Anticipated Discharge Date Admission Date: October 09, 2024 Supervising Physician Co-Signing Physician Notes Attending Attestation: Chart reviewed, care plan d/w TACO Park. I agree with the cartwright components of her documentation. Cont Remdesivir/dexamethasone for COVID-19. Cont Rocephin (and now zithromax) for superimposed bacterial pneumonia (suspected based on cxr findings today). Rocephin should cover presumed UTI. Blood cx's remain negative. Alfred Underwood MD Subjective Patient seen and examined this morning. Patient reports she is feeling better today. Reports she woke up soaked in sweat this morning but has felt okay since. She report her cough has improved and she feels she is coughing up less mucus. denies any CP or SOB. Physical Exam Constitutional: WD/WN, vitals as above Eyes: PERRL, conjunctivae normal, anicteric sclerae Respiratory: right + for rhonchi left clear Cardiovascular: RRR, no murmur, no edema Psychiatric: A+Ox3, euthymic affect Results & Data Results & Data Vital Signs (Past 12 Hours) Vital Signs Temp Pulse Pulse Resp BP Pulse Ox Pulse Ox 10/10/24 14:04 54 L 10/10/24 11:53 36.6 C 48 L 16 127/69 97 10/10/24 09:09 10/10/24 08:08 36.9 C 68 18 133/61 95 10/10/24 07:28 52 L 18 98 10/10/24 07:00 47 L 10/10/24 04:00 98 O2 Del Method O2 Del Method O2 Flow Rate O2 Flow Rate 10/10/24 14:04 10/10/24 11:53 Room Air 10/10/24 09:09 Room Air, Nasal Cannula 2 10/10/24 08:08 Nasal Cannula 2 10/10/24 07:28 Nasal Cannula 2 10/10/24 07:00 10/10/24 04:00 Nasal Cannula 2 PG Care Time/CCT Total # of Minutes Spent Total Time Spent with Patient: Total time spent is greater than 50% in coordination of care (as documented) at patient's floor/unit and/or counseling patient: Coding Level of Care Code 02500 SUB INP/OBS CARE 3/50MIN Diagnoses Generalized weakness R53.1 Acute UTI N39.0 COVID-19 U07.1 Hypertension I10 CAP (community acquired pneumonia) J18.9"
[2024-10-11] MEDS: ALBUT/IPRATROP 3MG/0.5MG NEB 3 ML VIAL NEB PRN (04:40)
[2024-10-11 07:25] LABS: Hematocrit (blood only) 28.2 % (37.0-47.0); Hemoglobin 9.5 g/dl (12.0-16.0); Mean Corpuscular Hemoglobin 31.6 pg (25.0-34.0); Mean Corpuscular Hgb Conc 33.7 g/dL (32.0-36.0); Mean Corpuscular Volume 93.7 fL (80.0-100.0); Platelet Count 157 K/uL (130-400); RDW Coefficient of Variation 13.6 % (11.5-14.5); RDW Standard Deviation 45.6 fL (36.4-46.3); Red Blood Count 3.01 M/uL (4.20-5.40); White Blood Count 8.02 K/ul (4.8-10.8)
[2024-10-11 07:45] LABS: BUN Creatinine Ratio 25.6 (10-20); Calcium 8.3 mg/dl (8.6-10.3); Creatinine Clr Calc Pharmacy 55.7 ml/min; Magnesium 1.8 mg/dl (1.7-2.4); Potassium 3.9 mmol/L (3.5-5.1)
[2024-10-11] MEDS: AZITHROMYCIN 250 MG TAB PO SCH (08:02)
--- NOTE | 2024-10-11 14:58 | Hospitalist Progress Note ---
"Date of Service October 11, 2024 Assessment & Plan (1) Generalized weakness: (2) Acute UTI: (3) COVID-19: (4) Hypertension: (5) CAP (community acquired pneumonia): Plan 78 y/o PMH of hypertension, HLD (diet controlled) pelvic prolapse, recurrent urinary tract infection, vitamin D deficiency and vitamin b12 deficiency presented to the ED due to weakness/ fall and URI. #Covid 19/CAP Symptoms onset 10/07. Continue Dexamethasone. Remdesivir completed. Supportive care: Mucinex BID, IS, Duoneb q 8h CXR repeated 10/10 - concerning for right sided pneumonia. CBC/BMP remain stable. s/p Rocephin, Continue Azithromycin #UTI - resolved Elevated procal on admission, with suspicious UA, UC contaminated. Will plan to treat for uncomplicated UTI. s/p Rocephin. #Weakness/ Fall | Dizziness Patient states she fell while trying to stand up - no head strike, no LOC Echo - EF >70%, mild mitral annular calcification, moderate mitral regurg, grade 1 diastolic dysfunction Orthostatic vitals negative Received 2L IVFs, additional 500cc given 10/09 PT/OT recommending rehab, patient electing to return to her independent living facility at the [facility] upon discharge w/ no services. #Elevated troponin No chest pain, EKG SR with PVCs no ST changes Suspicious of demand ischemia in the setting of dehydration and current illness Troponin peaked at 153.5, now downtrending to 118.4 #HTN continue lisinopril Atenolol decreased to 25m qAM given bradycardia and dizziness mag replaced IV - mag stable. DVT ppx: Lovenox sq q24 Dispo: continued inpatient stay, weaning O2, PT/OT Updated daughter via phone 10/11. anticipate discharge home 10/12. Admission and Anticipated Discharge Date Admission Date: October 09, 2024 Supervising Physician Co-Signing Physician Notes Attending Attestation: Chart reviewed, care plan d/w TACO Park. I agree with the cartwright components of her documentation. Completed 3 days of Remdesivir and remains on IV dexamethasone for COVID-19. Continue zithromax for possible superimposed bacterial pneumonia. Completed 3 days of IV rocephin for presumed UTI although urine cx was negative. Blood cx's remain negative. Progressing nicely. Alfred Underwood MD Subjective Patient seen and examined this morning. patient reports to be feeling better today. Reports she still has a cough but denies any additional symptoms. Discussed discharge planning & patient would like to return to her independent living facility at the [facility]. She does not want home health or rehab upon discharge. She reported if she felt she needed home health she would reach out to her PCP. Physical Exam Constitutional: WD/WN, vitals as above Eyes: PERRL, conjunctivae normal, anicteric sclerae Respiratory: normal respiratory effort, lungs clear to auscultation Cardiovascular: RRR, no murmur, no edema Psychiatric: A+Ox3, euthymic affect Results & Data Results & Data Vital Signs (Past 12 Hours) Vital Signs Temp Pulse Pulse Pulse Resp BP Pulse Ox 10/11/24 13:00 55 L 10/11/24 11:33 36.7 C 58 L 18 169/53 H 95 10/11/24 08:00 10/11/24 07:36 36.8 C 65 18 155/71 H 95 10/11/24 07:17 56 L 16 96 10/11/24 04:43 52 L 16 96 10/11/24 03:59 37 C 58 L 18 152/79 H 95 O2 Del Method 10/11/24 13:00 10/11/24 11:33 Room Air 10/11/24 08:00 Room Air 10/11/24 07:36 Room Air 10/11/24 07:17 Room Air 10/11/24 04:43 Room Air 10/11/24 03:59 Room Air PG Care Time/CCT Total # of Minutes Spent Total Time Spent with Patient: Total time spent is greater than 50% in coordination of care (as documented) at patient's floor/unit and/or counseling patient: Coding Level of Care Code 12548 SUB INP/OBS CARE 2/35MIN Diagnoses Generalized weakness R53.1 Acute UTI N39.0 COVID-19 U07.1 Hypertension I10 CAP (community acquired pneumonia) J18.9"
[2024-10-11 16:19] VITALS: RESP 18
[2024-10-12 07:35] VITALS: TEMP 98.1
--- NOTE | 2024-10-12 10:50 | Discharge Summary ---
"Discharge Summary Date of Service October 12, 2024 Principal Dx & Hospital Course #1 = Principal Diagnosis (1) Generalized weakness: (2) Acute UTI: (3) COVID-19: (4) Hypertension: (5) CAP (community acquired pneumonia): Plan 78 y/o PMH of hypertension, HLD (diet controlled) pelvic prolapse, recurrent urinary tract infection, vitamin D deficiency and vitamin b12 deficiency presented to the ED due to weakness/ fall and URI. #Covid 19/CAP Symptoms onset 10/07. s/p Dexamethasone & Remdesivir inpatient. Mucinex prn CXR repeated 10/10 - concerning for right sided pneumonia. CBC/BMP remain stable. s/p Rocephin Continue Azithromycin on dc. #UTI - resolved Elevated procal on admission, with suspicious UA, UC contaminated. s/p treatment for uncomplicated UTI w/ Rocephin. #Weakness/ Fall | Dizziness Patient states she fell while trying to stand up - no head strike, no LOC Echo - EF >70%, mild mitral annular calcification, moderate mitral regurg, grade 1 diastolic dysfunction Orthostatic vitals negative s/p IVF PT/OT recommending rehab, patient electing to return to her independent living facility at the [facility] upon discharge w/ no services. #Elevated troponin No chest pain, EKG SR with PVCs no ST changes Suspicious of demand ischemia in the setting of dehydration and current illness Troponin peaked at 153.5, & downtrended to 118.4 #HTN continue lisinopril Atenolol decreased to 25m qAM given bradycardia and dizziness --> recommend continue lower dose at dc, patient has been tolerating well. s/p mag replacement. Patient discharged home 10/12. Discharge Exam Constitutional WD/WN, vitals as above Eyes PERRL, conjunctivae normal, anicteric sclerae Respiratory normal respiratory effort, lungs clear to auscultation Psychiatric A+Ox3, euthymic affect Discharge Plan Discharge Items Patient Disposition: Home - Self-Care Reason For Visit: COVID, WEAKNESS Discharge Diagnosis: COVID, pneumonia Activity: Resume your previous activity Non-emergency contact: Primary Care Provider Call non-emergency contact if: you have any medication questions, your symptoms worsen and you have a fever Follow-up/Referrals: Antonia Sue MD [Primary Care Provider] - 10/19/24 10:20 am Diet: Heart Healthy Addtl Attending Provider Instructions: Mrs. Olivier, You were recently hospitalized for a fall and upper respiratory infection. You were found to have COVID and then later diagnosed with pneumonia. You were treated with sterois and antibiotics. Please see recommendations below regarding your discharge. Please take Aztihromycin for the next two days to complete your course Please cut your Atenolol in half. This was decreased to 25mg daily. An updated script has been sent to your pharmacy. You may use Mucinex twice daily at home for cough/congestion. The remainder of your medications may be resumed. Please follow up with your PCP within 1-2 weeks of discharge. If you develop any worsening symptoms including shortness of breath, fever, chest pain please report back to the ED for further care. Sincerely, Kimber Park PA-C Pending Studies at Discharge: No Stand-Alone Forms: [facility], Smoking Cessation Medications and DC Order Prescriptions: New azithromycin 250 mg tablet 250 mg PO DAILY 2 Days Qty: 2 0RF atenolol 25 mg Tablet 25 mg PO QAM 30 Days Qty: 30 0RF Continued loperamide [Imodium A-D] 2 mg tablet 2 mg PO Q6H PRN (Reason: loose stool) Qty: 30 0RF lisinopril 20 mg tablet 20 mg PO QAM Qty: 90 3RF acetaminophen 500 mg Capsule 1,000 mg PO Q6H PRN (Reason: Pain) cranberry extract 500 mg Capsule 500 mg PO QAM Rx Instructions: administer with meals triamcinolone acetonide 0.1 % cream 1 applic topical BID PRN (Reason: Skin Irritation) Discontinued atenolol 50 mg tablet 50 mg PO QAM Qty: 90 3RF Discharge Orders: Discharge Order (Routine); Ordered 10/12/24 Ordered By: Kimber Park Admission Data Admit Date/Time: 10/09/24 10:10 Attending Provider: Nora Valdez Admit Provider: Abdias Geller Primary Care Provider: Antonia Sue Other Providers: Chago Castro Other Interventions: Discharge Summary Assessment (RN) Last Done: 10/12/24 10:56 Hospital Stay Data Consultations 10/08/24 01:08 ED Decision to Admit Stat Pending Results Patient Have Any Pending Studies at Discharge: No Discharge Instructions Given to Patient (Per Discharging Provider) Mrs. Olivier, You were recently hospitalized for a fall and upper respiratory infection. You were found to have COVID and then later diagnosed with pneumonia. You were treated with sterois and antibiotics. Please see recommendations below regarding your discharge. Please take Aztihromycin for the next two days to complete your course Please cut your Atenolol in half. This was decreased to 25mg daily. An updated script has been sent to your pharmacy. You may use Mucinex twice daily at home for cough/congestion. The remainder of your medications may be resumed. Please follow up with your PCP within 1-2 weeks of discharge. If you develop any worsening symptoms including shortness of breath, fever, chest pain please report back to the ED for further care. Sincerely, Kimber Park PA-C Total Time Total Time Spent Total Time Spent (In Minutes): 45 Total Time Includes: Examination of the Patient, Discharge Planning and Medication Reconciliation Coding Level of Care Code 15226 INP/OBS DISCH >30 MIN Diagnoses Generalized weakness R53.1 Acute UTI N39.0 COVID-19 U07.1 Hypertension I10 CAP (community acquired pneumonia) J18.9"
[2024-10-12 11:14] VITALS: BP 156/87; O2SAT 92
[2024-10-12 14:53] VITALS: PULSE 69
== END 2024-10-12 15:52 | disposition home or self-care (01) | DRG 177 ==
LOC: 2E 23:15 → ED 23:15 → SUATTDRO 10-08 01:59 → 2E 10-08 03:50 → SUATTDRO 10-09 10:10 → 2W 10-10 23:20

== ENCOUNTER 2024-10-15 18:47 | Observation (INO) ==
[2024-10-15] MEDS: ONDANSETRON INJ 2 MG/ML 2 ML VIAL IV STA (19:42)
[2024-10-15] MEDS: FAMOTIDINE 20MG IV PUSH 20 MG/5 ML SYR IV STA (19:43)
--- NOTE | 2024-10-15 19:43 | Emergency Department Note ---
Impression & Plan Generalized weakness, Acute dehydration, COVID-19 ED Provider Note NAME: KAREN MITCHELL AGE: 78 SEX: F : 1945 ARRIVES VIA: Walk-In INFORMANT: Patient, family members ED PROVIDER(S): Arie Castro MD CHIEF COMPLAINT: Weakness, upset stomach, shortness of breath MEDICAL DECISION MAKING: Patient presents with the above. Patient does have some occasional adventitious breath sounds in the bilateral lung gaytan. Patient did have a recent admission for COVID-19 and pneumonia and had completed a course of azithromycin at home. IV was established and blood work was obtained. Patient was ordered [id number] Xopenex treatments IV fluids BioFire as the patient felt as though she had worsened since the time of her discharge along with a chest x-ray. Patient also ordered IV Zofran. No active chest pain. Patient's blood work showed a normal white count H&H and platelet count kidney function is unremarkable with prerenal azotemia. The patient did receive IV fluids. Patient's troponin 15.2. This is downtrending from the time of admission no active chest pain. EKG without signs of obvious ischemic changes. Chest x-ray looks improved compared to prior. Discussion w/ other healthcare providers: Dr. Barrett inpatient medicine service Prior /Outside records reviewed: I reviewed part of a discharge summary from October 12. Patient was admitted for generalized weakness acute UTI COVID-19 and pneumonia. Patient was discharged on azithromycin. Urine culture likely contaminated had received Rocephin. Elevated troponin likely in setting of demand ischemia and illness as this downtrended from 153 to 1 patient was discharged on azithromycin as well as atenolol. Differential diagnosis: Infection, dehydration, metabolic abnormality, hypo/hyperglycemia, electrolyte imbalance, anemia, UTI, pneumonia, thyroid dysfunction among others were considered. Diagnostics, as interpreted by me: ECG: Sinus with sinus arrhythmia, rate of 78, normal intervals, left axis deviation no obvious ST elevations. Cardiac monitoring: An order was placed for continuous cardiac monitoring. The monitor shows a rate of 79 with sinus rhythm. Patient was placed on pulse oximetry Medical decision rules: None Imaging studies: I informally interpreted the patient's chest x-ray without obvious pneumonia or pneumothorax clips noted to the right axillary/chest area with formal report to follow. HPI: Patient presents due to concern for weakness and shortness of breath. Patient reportedly had some worsening shortness of breath at home today and subsequently presented here for further evaluation treatment. The patient states that she does not walk around much and is unsure as whether not she would have exertional dyspnea. Patient states that she does feel better compared to prior. Patient did have a recent admission for COVID-19 associated pneumonia and had completed a course of antibiotics. The patient's had poor appetite and p.o. intake at home. No reported vomiting or diarrhea with the patient has had some upset stomach. No chest pain. Patient states that she has had cough with productive sputum. Patient is a non-smoker. Patient denies any leg swelling or calf pain. PAST MEDICAL HISTORY: See Below PAST SURGICAL HISTORY: See Below SOCIAL HISTORY: See Below HOME MEDICATIONS: See Below ALLERGIES: See Below VITALS: See Below PHYSICAL EXAMINATION: GENERAL: Fatigable but nontoxic in appearance. EYE EXAM: Normal conjunctiva. PERRL, no anisocoria and EOM's grossly intact w/o pain. OROPHARYNX: Moist mucus membranes, grossly normal dentition. NECK: Trachea midline, no stridor. Supple, no nuchal rigidity, no adenopathy, non-tender. No signs of meningismus. FROM of the neck with good chin to chest and neck extension. LUNGS: Clear to auscultation. Normal chest wall mechanics. HEART: NSR, no MRG. ABDOMEN: Abdomen soft, non-tender, no masses, no rebound or guarding. BACK: No CVA TTP. SKIN: No rashes and no bruising. UPPER EXTREMITIES: Upper extremities are grossly normal. LOWER EXTREMITIES: Grossly normal, trace pretibial edema without calf pain or erythema. NEURO EXAM: A&O x3, cranial nerves II-XII grossly intact, normal speech, moves all 4 extremities. Past Med/Surg History Problem List (Updated 10/15/24 @ 21:58 by Arie Castro MD) COVID-19 (Acute) Acute dehydration (Acute) Generalized weakness (Acute) CAP (community acquired pneumonia) Generalized weakness (Acute) Acute UTI (Acute) COVID-19 (Acute) Balance problem Vitamin D deficiency (Chronic) Vitamin B12 deficiency (Chronic) Osteopenia (Chronic) Incomplete bladder emptying (Chronic) Arrhythmia (Chronic) Status post right knee replacement (~12/2020) Abnormal glucose Recurrent UTI (urinary tract infection) Urgency incontinence Pelvic prolapse (Chronic) Hypertension Medical History Eczema Sinus bradycardia Per records, patient denies (NSR on preop EKG 04/20/23) Orthostatic hypotension Post-op episodes Compression fx, lumbar spine hx - no surgery Obesity Arthritis Cancer Right breast (1991) DVT (deep venous thrombosis) S/P childbirth 50 years ago, no issues since Dyslipidemia Dysmetabolic syndrome X Surgical History History of lumpectomy of right breast H/O abdominal hysterectomy Hx of tonsillectomy Hx of appendectomy Hx of total knee arthroplasty R/L History of hip replacement R/L (x5 total procedures) Family History Mother Cardiac disorder Myocardial infarction Father Myocardial infarction Sister Hypertension Other No family history of adverse response to anesthesia Denies family history of Colon cancer Ovarian cancer Prostate cancer Breast cancer Social History Smoking Status: Unknown if ever smoked Second Hand Exposure: No; Do You Dip or Chew Tobacco: No; Hx Alcohol Use: No Hx Substance Use: No Preferred Language: Maori Communication Ability: Effective Visual Impairment: No Limitations Hearing Ability: Normal Processing Engineer Required: No Beliefs That Will Affect Care: None marital status: Current Living Situation: Spouse current occupational status: retired How many Children do You have: 2 Feels Safe at Home: Yes Childhood Exposure to Second-Hand Smoke: No Diet: regular caffeine: Yes during the past year weight has: remained stable Dental Care, Regularly: Yes Physical Activity Frequency: Does not Exercise Physical Activity Frequency Comment: Limited by physical condition Seatbelt Use: always Sunscreen Use: No Assistive Devices: Walker Allergies Allergies Allergy/AdvReac Type Severity Reaction Status Date / Time Sulfa (Sulfonamide Allergy Intermediate Hives Verified 10/08/24 00:19 Antibiotics) tramadol AdvReac Severe Hallucinati Verified 10/08/24 00:19 ons hydrochlorothiazide AdvReac Intermediate Disorientat Verified 10/08/24 00:19 [From Dyazide] ion Home Meds Home Medications Medication Instructions Recorded Confirmed acetaminophen 500 mg capsule 1,000 mg PO Q6H PRN Pain 11/20/20 10/15/24 cranberry extract 500 mg capsule 500 mg PO QAM 04/28/23 10/15/24 triamcinolone acetonide 0.1 % 1 applic topical BID PRN Skin 10/08/24 10/15/24 topical cream Irritation Previous Rx's Medication Instructions Recorded loperamide 2 mg tablet (Imodium 2 mg PO Q6H PRN loose stool #30 07/09/22 A-D) tabs lisinopril 20 mg tablet 20 mg PO QAM #90 tabs 09/14/24 atenolol 25 mg tablet 25 mg PO QAM 30 days #30 tabs 10/12/24 Results & Data (ED) Vital Signs Vital Signs - 24 hr 10/15/24 18:51 10/15/24 19:34 10/15/24 19:36 Temperature 37 C Temperature Source Temporal Artery Scan Pulse Rate 118 H 75 Pulse Rate [Apical] Respiratory Rate 19 Respiratory Effort / Characteristics Non-Labored Spontaneous Respiratory Depth Normal Respiratory Pattern Regular Blood Pressure 126/75 Blood Pressure [Right Arm] Blood Pressure Mean 92 Blood Pressure Mean [Right Arm] Blood Pressure Position [Right Arm] Pulse Oximetry 97 98 Oxygen Delivery Method Room Air Room Air Sepsis Recent Fever Within 48 Hours No Sepsis New/Unexplained Change in Mental Status N/A Sepsis Action Taken by Nursing No Action Required 10/15/24 19:36 Temperature Temperature Source Pulse Rate Pulse Rate [Apical] 78 Respiratory Rate 16 Respiratory Effort / Characteristics Non-Labored Spontaneous Respiratory Depth Respiratory Pattern Blood Pressure Blood Pressure [Right Arm] 137/83 Blood Pressure Mean Blood Pressure Mean [Right Arm] 101 Blood Pressure Position [Right Arm] Lying Pulse Oximetry 98 Oxygen Delivery Method Room Air Sepsis Recent Fever Within 48 Hours Sepsis New/Unexplained Change in Mental Status Sepsis Action Taken by [facility] Medications Current Medication List: was personally reviewed by me Laboratory Data Attestation: I reviewed the patient's lab results. 10/15/24 19:22 10/15/24 19:22 Lab Results 10/15/24 10/15/24 Range/Units 19:22 19:30 WBC 9.13 (4.8-10.8) K/ul RBC 3.99 L (4.20-5.40) M/uL Hgb 12.2 (12.0-16.0) g/dl Hct 37.4 (37.0-47.0) % MCV 93.7 (80.0-100.0) fL MCH 30.6 (25.0-34.0) pg MCHC 32.6 (32.0-36.0) g/dL RDW Std Deviation 46.8 H (36.4-46.3) fL RDW Coeff of Ariel 13.9 (11.5-14.5) % Plt Count 336 (130-400) K/uL MPV 9.5 (9.4-12.4) fL Immature Gran % (Auto) 4.7 % Neut % (Auto) 57.1 % Lymph % (Auto) 26.7 % Logan % (Auto) 8.9 % Eos % (Auto) 2.3 % Baso % (Auto) 0.3 % Neut # (Auto) 5.21 (1.40-6.50) K/uL Lymph # (Auto) 2.44 (1.20-3.40) K/uL Logan # (Auto) 0.81 H (0.11-0.59) K/uL Eos # (Auto) 0.21 (0.00-0.50) K/uL Baso # (Auto) 0.03 (0.00-0.20) K/uL Immature Gran # (Auto) 0.43 H (0.01-0.20) K/uL Sodium 137 (136-145) mmol/L Potassium 4.7 (3.5-5.1) mmol/L Chloride 103 (98-107) mmol/L Carbon Dioxide 29 (21-32) mmol/L Anion Gap 5 (3-11) BUN 29 H (6-23) mg/dl Creatinine 1.02 (0.6-1.2) mg/dl Est Cr Clr Drug Dosing 45.4 ml/min eGFR 55.96 BUN/Creatinine Ratio 28.4 H (10-20) Glucose 93 (70-99(Fasting)) mg/dl Calcium 9.2 (8.6-10.3) mg/dl Total Bilirubin 0.9 (0.2-1.0) mg/dl AST 28 (13-39) U/L ALT 23 (7-52) U/L Alkaline Phosphatase 67 (34-104) U/L Troponin I High Sens 15.2 H (0-14) pg/ml Total Protein 7.0 (6.0-8.3) gm/dl Albumin 3.7 (3.4-5.0) gm/dl Globulin 3.3 (2.5-4.0) gm/dl Albumin/Globulin Ratio 1.1 (0.9-2) Adenovirus (PCR) Not Detected (NotDetected) B. pertussis DNA (PCR) Not Detected (NotDetected) B.parapertussis DNA PCR Not Detected (NotDetected) C. pneumoniae DNA (PCR) Not Detected (NotDetected) Coronavirus OC43 (PCR) Not Detected (NotDetected) Coronavirus HKU1 (PCR) Not Detected (NotDetected) Coronavirus 229E (PCR) Not Detected (NotDetected) SARS-CoV-2 (PCR) DETECTED A (NotDetected) Coronavirus NL63 (PCR) Not Detected (NotDetected) Human Metapneumovir PCR Not Detected (NotDetected) Influenza Type A (PCR) Not Detected (NotDetected) Influenza Type B (PCR) Not Detected (NotDetected) M. pneumoniae (PCR) Not Detected (NotDetected) Parainfluenza 1 (PCR) Not Detected (NotDetected) Parainfluenza 2 (PCR) Not Detected (NotDetected) Parainfluenza 3 (PCR) Not Detected (NotDetected) Parainfluenza 4 (PCR) Not Detected (NotDetected) RSV (PCR) Not Detected (NotDetected) Entero/Rhino (PCR) Not Detected (NotDetected) Administered Medications Discontinued Medications Famotidine (Pepcid 20mg Iv Push) 20 mg in 5 mls @ 2.5 mls/min IV NOW STA Stop: 10/15/24 19:38 Last Admin: 10/15/24 19:43 Dose: 2.5 mls/min Documented By: JAVY Sodium Chloride (Nss) 1,000 mls @ 999 mls/hr IV .Q1H1M ONE Stop: 10/15/24 21:22 Last Admin: 10/15/24 20:25 Dose: 999 mls/hr Documented By: JAVY Levalbuterol HCl (Levalbuterol 1.25 Mg/3 Ml Neb) 2.5 mg NEB NOW STA Stop: 10/15/24 19:38 Last Admin: 10/15/24 19:50 Dose: 2.5 mg Documented By: JAVY Ondansetron HCl (Ondansetron Inj 2 Mg/Ml 2 Ml Vial) 4 mg IV NOW STA Stop: 10/15/24 19:38 Last Admin: 10/15/24 19:42 Dose: 4 mg Documented By: JAVY Imaging Data Radiologist's Impression: Chest X-Ray 10/15/24 18:55 Chest radiograph, one view History: Infection Comparison: 10/10/2024 Findings: Single AP view of the chest performed. No focal consolidation or pleural effusion. No pneumothorax. The cardiomediastinal silhouette is within normal limits. Normal pulmonary vascularity. No evidence for lymphadenopathy. No visualized bony or soft tissue abnormality. Severe degenerative change of the shoulder joints. There are multilevel degenerative changes of the thoracic spine. Surgical clips at the right axilla. Impression: No acute process Electronically signed by Jose Ramon Cao 10-15-2024 7:50 PM Discharge Plan Visit Data Chief Complaint: Respiratory Problems Stated Complaint: RELEASED, CAN'T BREATHE COUGHING, HAD COVID ED Provider: Arie Castro Discharge Problem: Generalized weakness, Acute dehydration, COVID-19 Forms Stand Alone Forms: [facility] [employer] Prescriptions Prescriptions: No Action loperamide [Imodium A-D] 2 mg tablet 2 mg PO Q6H PRN (Reason: loose stool) Qty: 30 0RF lisinopril 20 mg tablet 20 mg PO QAM Qty: 90 3RF acetaminophen 500 mg Capsule 1,000 mg PO Q6H PRN (Reason: Pain) cranberry extract 500 mg Capsule 500 mg PO QAM Rx Instructions: administer with meals triamcinolone acetonide 0.1 % cream 1 applic topical BID PRN (Reason: Skin Irritation) atenolol 25 mg Tablet 25 mg PO QAM 30 Days Qty: 30 0RF Referrals Referrals: Antonia Sue MD [Primary Care Provider] -
[2024-10-15] MEDS: LEVALBUTEROL 1.25 MG/3 ML NEB NEB STA (19:50)
--- NOTE | 2024-10-15 19:51 | XRay Report ---
Chest radiograph, one view History: Infection Comparison: 10/10/2024 Findings: Single AP view of the chest performed. No focal consolidation or pleural effusion. No pneumothorax. The cardiomediastinal silhouette is within normal limits. Normal pulmonary vascularity. No evidence for lymphadenopathy. No visualized bony or soft tissue abnormality. Severe degenerative change of the shoulder joints. There are multilevel degenerative changes of the thoracic spine. Surgical clips at the right axilla. Impression: No acute process Electronically signed by Jose Ramon Cao 10-15-2024 7:50 PM
[2024-10-15 19:57] LABS: Basophils # (auto) 0.03 K/uL (0.00-0.20); Basophils % (auto) 0.3 %; Eosinophils # (auto) 0.21 K/uL (0.00-0.50); Eosinophils % (auto) 2.3 %; Hematocrit (blood only) 37.4 % (37.0-47.0); Hemoglobin 12.2 g/dl (12.0-16.0); Immature Granulocytes # (auto) 0.43 K/uL (0.01-0.20); Immature Granulocytes % (auto) 4.7 %; Lymphocytes # (auto) 2.44 K/uL (1.20-3.40); Lymphocytes % (auto) 26.7 %; Mean Corpuscular Hemoglobin 30.6 pg (25.0-34.0); Mean Corpuscular Hgb Conc 32.6 g/dL (32.0-36.0); Mean Corpuscular Volume 93.7 fL (80.0-100.0); Mean Platelet Volume 9.5 fL (9.4-12.4); Monocytes # (auto) 0.81 K/uL (0.11-0.59); Monocytes % (auto) 8.9 %; Neutrophils # (auto) 5.21 K/uL (1.40-6.50); Neutrophils % (auto) 57.1 %; Platelet Count 336 K/uL (130-400); RDW Coefficient of Variation 13.9 % (11.5-14.5); RDW Standard Deviation 46.8 fL (36.4-46.3); Red Blood Count 3.99 M/uL (4.20-5.40); White Blood Count 9.13 K/ul (4.8-10.8)
[2024-10-15 20:13] LABS: Albumin Globulin Ratio 1.1 (0.9-2); Albumin Level 3.7 gm/dl (3.4-5.0); BUN Creatinine Ratio 28.4 (10-20); Bilirubin,Total 0.9 mg/dl (0.2-1.0); Calcium 9.2 mg/dl (8.6-10.3); Creatinine Clr Calc Pharmacy 45.4 ml/min; Globulin 3.3 gm/dl (2.5-4.0); Potassium 4.7 mmol/L (3.5-5.1)
[2024-10-15 20:20] LABS: Troponin I High Sensitivity 15.2 pg/ml (0-14)
[2024-10-15] MEDS: SODIUM CHLORIDE 0.9% 1,000 ML IV ONE (20:25)
[2024-10-15 21:29] LABS: Adenovirus PCR Not Detected (NotDetected); Bordetella parapertussis PCR Not Detected (NotDetected); Bordetella pertussis PCR Not Detected (NotDetected); Chlamydia pneumoniae PCR Not Detected (NotDetected); Coronavirus 229E PCR Not Detected (NotDetected); Coronavirus CoV-2 (COVID19)PCR DETECTED (NotDetected); Coronavirus HKU1 PCR Not Detected (NotDetected); Coronavirus NL63 PCR Not Detected (NotDetected); Coronavirus OC43PCR Not Detected (NotDetected); Human Metapneumovirus PCR Not Detected (NotDetected); Influenza A PCR Not Detected (NotDetected); Influenza B PCR Not Detected (NotDetected); Mycoplasma pneumoniae PCR Not Detected (NotDetected); Parainfluenza Virus 1 PCR Not Detected (NotDetected); Parainfluenza Virus 2 PCR Not Detected (NotDetected); Parainfluenza Virus 3 PCR Not Detected (NotDetected); Parainfluenza Virus 4 PCR Not Detected (NotDetected); Respiratory Syncytial VirusPCR Not Detected (NotDetected); Rhinovirus/Enterovirus PCR Not Detected (NotDetected)
--- NOTE | 2024-10-15 21:38 | History & Physical Report ---
Date of Service October 15, 2024 Assessment & Plan (1) COVID-19: (2) Acute dehydration: (3) Generalized weakness: Plan 78 year old female presents to the ER with generalized weakness, ear pain and sore throat #COVID-19 / generalized weakness No hypoxia, remedesivir given last admission COVID isolation precautions PT/OT #Right ear pain and sore throat Lozenges for throat, throat culture Debrox for ear wax #HTN Continue atenolol and lisinopril VTE Prophylaxis - Lovenox 40mg SQ daily Diet - regular Disposition - admit to med/surg Admission and Anticipated Discharge Date Admission Date: October 15, 2024 History of Present Illness Chief Complaint: Shortness of breath Generalized weakness Primary Care Provider: Antonia Sue MD Mell Olivier is a 78 year old female who presents to the ER wth shortness of breath and generalized weakness. She was recently admitted from October 08 - October 12, 2024 with COVID-19 pneumonia treated with with Remdesivir and dexamethasone. Procalcitonin was positive and she was also treated with ceftriaxone and azithromycin to cover for bacterial pneumonia and possible UTI (subsequent culture was contaminated). Last PT note reports continuing rehab in hospital and declined home health on discharge. She reports she was initially doing well but became progressively more short of breath, decreased appetite and generally weak that she doesn't feel safe at home at the current time. Also having right ear pain and sore throat. Non-productive cough. No calf swelling or pain. Allergies Allergy/AdvReac Type Severity Reaction Status Date / Time Sulfa (Sulfonamide Allergy Intermediate Hives Verified 10/08/24 00:19 Antibiotics) tramadol AdvReac Severe Hallucinati Verified 10/08/24 00:19 ons hydrochlorothiazide AdvReac Intermediate Disorientat Verified 10/08/24 00:19 [From Dyazide] ion Home Medications Medication Instructions Recorded Confirmed Type acetaminophen 500 mg capsule 1,000 mg PO Q6H PRN Pain 11/20/20 10/15/24 History loperamide 2 mg tablet (Imodium 2 mg PO Q6H PRN loose stool #30 07/09/22 10/15/24 Rx A-D) tabs cranberry extract 500 mg capsule 500 mg PO QAM 04/28/23 10/15/24 History lisinopril 20 mg tablet 20 mg PO QAM #90 tabs 03/06/25 04/06/25 Rx triamcinolone acetonide 0.1 % 1 applic topical BID PRN Skin 10/08/24 10/15/24 History topical cream Irritation atenolol 25 mg tablet 25 mg PO QAM 30 days #30 tabs 10/12/24 10/15/24 Rx Past Med/Surg History Problem List (Updated 10/15/24 @ 21:58 by Arie Castro MD) COVID-19 (Acute) Acute dehydration (Acute) Generalized weakness (Acute) CAP (community acquired pneumonia) Generalized weakness (Acute) Acute UTI (Acute) COVID-19 (Acute) Balance problem Vitamin D deficiency (Chronic) Vitamin B12 deficiency (Chronic) Osteopenia (Chronic) Incomplete bladder emptying (Chronic) Arrhythmia (Chronic) Status post right knee replacement (~12/2020) Abnormal glucose Recurrent UTI (urinary tract infection) Urgency incontinence Pelvic prolapse (Chronic) Hypertension Medical History Eczema Sinus bradycardia Per records, patient denies (NSR on preop EKG 04/20/23) Orthostatic hypotension Post-op episodes Compression fx, lumbar spine hx - no surgery Obesity Arthritis Cancer Right breast (1991) DVT (deep venous thrombosis) S/P childbirth 50 years ago, no issues since Dyslipidemia Dysmetabolic syndrome X Surgical History History of lumpectomy of right breast H/O abdominal hysterectomy Hx of tonsillectomy Hx of appendectomy Hx of total knee arthroplasty R/L History of hip replacement R/L (x5 total procedures) Family History Mother Cardiac disorder Myocardial infarction Father Myocardial infarction Sister Hypertension Other No family history of adverse response to anesthesia Denies family history of Colon cancer Ovarian cancer Prostate cancer Breast cancer Social History Smoking Status: Never smoker Second Hand Exposure: No; Do You Dip or Chew Tobacco: No; Hx Alcohol Use: No Hx Substance Use: No Preferred Language: Sami Communication Ability: Effective Visual Impairment: No Limitations Hearing Ability: Normal Manager Lvn Required: No Beliefs That Will Affect Care: None marital status: Current Living Situation: Spouse current occupational status: retired How many Children do You have: 2 Feels Safe at Home: Yes Childhood Exposure to Second-Hand Smoke: No Diet: regular caffeine: Yes during the past year weight has: remained stable Dental Care, Regularly: Yes Physical Activity Frequency: Does not Exercise Physical Activity Frequency Comment: Limited by physical condition Seatbelt Use: always Sunscreen Use: No Assistive Devices: Walker Review of Systems Review of Systems: All systems reviewed & are unremarkable except as noted in HPI & below Physical Exam Constitutional: WD/WN, vitals as above ENMT: external ear and nose normal, oropharynx normal Ears: + unable to visualize TM Respiratory: normal respiratory effort, lungs clear to auscultation Cardiovascular: RRR, no murmur, no edema Gastrointestinal (Abdomen): normal bowel sounds, soft, nontender, no hepatosplenomegaly Musculoskeletal: no cyanosis or clubbing, extremities motor strength 5/5 Skin: no rashes, warm and dry Neurologic: moves all extremities and awake; no focal motor deficits and not confused Psychiatric: A+Ox3, euthymic affect Results & Data Results & Data Vital Signs (Past 12 Hours) Vital Signs Temp Pulse Pulse Resp BP BP Pulse Ox 10/15/24 19:36 78 16 137/83 98 10/15/24 19:36 98 10/15/24 19:34 75 10/15/24 18:51 37 C 118 H 19 126/75 97 O2 Del Method 10/15/24 19:36 Room Air 10/15/24 19:36 Room Air 10/15/24 19:34 10/15/24 18:51 Room Air Laboratory Results Abnormal lab results 10/15/24 Range/Units 19:22 RBC 3.99 L (4.20-5.40) M/uL RDW Std Deviation 46.8 H (36.4-46.3) fL [place] # (Auto) 0.81 H (0.11-0.59) K/uL Immature Gran # (Auto) 0.43 H (0.01-0.20) K/uL BUN 29 H (6-23) mg/dl BUN/Creatinine Ratio 28.4 H (10-20) Troponin I High Sens 15.2 H (0-14) pg/ml All labs reviewed Diagnostic Findings Chest radiograph, one view History: Infection Comparison: 10/10/2024 Findings: Single AP view of the chest performed. No focal consolidation or pleural effusion. No pneumothorax. The cardiomediastinal silhouette is within normal limits. Normal pulmonary vascularity. No evidence for lymphadenopathy. No visualized bony or soft tissue abnormality. Severe degenerative change of the shoulder joints. There are multilevel degenerative changes of the thoracic spine. Surgical clips at the right axilla. Impression: No acute process Medications Administered ER medications given: Levalbuterol 2.5 mg NEB Ondansetron 4 mg IV Famotidine 20 mg IV Normal saline 1 L bolus ECG Rate (beats per minute): 78 Rhythm: sinus with SA Findings: no acute ischemic change Comparison ECG Date: from (October 08, 2024) Change: the following changes noted (Premature supraventricular complexes no longer present) Code Status & VTE Plan Code Status Full VTE Prophylaxis Plan VTE Prophylaxis will be ordered: Yes PG Care Time/CCT Total # of Minutes Spent Total Time Spent with Patient: Total time spent is greater than 50% in coordination of care (as documented) at patient's floor/unit and/or counseling patient: Coding Level of Care Code 64837 INT INP/OBS CARE 3/75MIN Diagnoses COVID-19 U07.1 Acute dehydration E86.0 Generalized weakness R53.1
[2024-10-15] MEDS ORDERED: ALBUT/IPRATROP 3MG/0.5MG NEB 3 ML VIAL NEB PRN (23:59)
[2024-10-15] MEDS ORDERED: NON-FORMULARY MEDICATION (Acetaminophen 500 mg Capsule) PO PRN (23:59)
[2024-10-15] MEDS ORDERED: TRIAMCINOLONE ACET 0.1% CR 15 GM TUBE TOP PRN (23:59)
[2024-10-16] MEDS ORDERED: LOPERAMIDE HCL 2 MG CAP PO PRN (00:05)
[2024-10-16] MEDS: CARBAMIDE PEROXIDE 6.5% 15 ML BTL OTB SCH (00:47)
[2024-10-16] MEDS: ENOXAPARIN INJ 40 MG/0.4 ML SYR SQ SCH (00:47)
[2024-10-16] MEDS: ATENOLOL 25 MG TABLET PO SCH (08:54)
[2024-10-16] MEDS: COUGH DROP (SUGAR FREE) LOZ 24 LOZ/1 BOX BUCCAL PRN (08:54)
[2024-10-16] MEDS: ACETAMINOPHEN 325 MG TAB PO PRN (08:55)
[2024-10-16] MEDS: lisinopril 20 MG TAB PO SCH (08:55)
--- NOTE | 2024-10-16 11:04 | Electrocardiogram Report ---
Test Reason : Blood Pressure : */* mmHG Vent. Rate : 78 BPM Atrial Rate : 78 BPM P-R Int : 164 ms QRS Dur : 84 ms QT Int : 392 ms P-R-T Axes : 38 -28 63 degrees QTcB Int : 446 ms Sinus rhythm with frequent Premature atrial complexes Moderate voltage criteria for LVH, may be normal variant ( R in aVL , [place] product ) When compared with ECG of 08-Oct-2024 00:23, No significant change Confirmed by Rudy Shepard ([id number]) on 10/16/2024 11:04:36 AM Referred By: REFERRED SELF Confirmed By: Rudy Shepard
--- NOTE | 2024-10-16 13:31 | Hospitalist Progress Note ---
Date of Service October 16, 2024 Assessment & Plan (1) COVID-19: (2) Acute dehydration: (3) Generalized weakness: Plan 78 year old female with past medical history of HLD (diet controlled, hypertension, pelvic prolapse, vitamin D/B12 deficiency presents to the ER with generalized weakness, ear pain and sore throat. Recent admission from - 10/12 for COVID-19, at that time she was recommended to go to rehab but refused and was discharged home. chest x-ray on admission without acute process, bio fire does again show positive for COVID-19. #COVID-19 / generalized weakness No hypoxia, remedesivir given last admission COVID isolation precautions PT/OT - Recommend rehab, patient continues to refuse #Right ear pain and sore throat Lozenges for throat, throat culture Debrox for ear wax add Cepacol mouth spray as needed #HTN Continue atenolol and lisinopril VTE Prophylaxis - Lovenox 40mg SQ daily Disposition - continued inpatient stay, daughter to come in this evening to discuss with her to go to rehab. If patient continues to decline rehab can discharge home with home health tomorrow Admission and Anticipated Discharge Date Admission Date: October 15, 2024 Subjective Patient seen sitting up in the chair - Sore throat. Does note that she is weak and has been slowly well moving around the room. I discussed with her that is why physical therapy is recommending that she go to rehab, she states that she would not want to do this as she does not like the rehab places and wants to go back to her facility where she they have a gym and exercise classes that she can participate in. I spoke to her daughter, Yaneli via phone this afternoon who states that her m om was very stubborn and will likely not go to rehab. Yaneli states that she told her mom exercises to be doing after she was discharged last week and she did not do those because she stated no one told her she had to Review of Systems Review of Systems: All systems reviewed & are unremarkable except as noted in Subjective Physical Exam Physical Exam: General: NAD, VS as above HEENT: Mucosal membranes moist, no erythema or plaques to oropharynx Resp: normal respiratory effort, lungs clear to auscultation CV: RRR, no murmur, Abd: normal bowel sounds, non tender, no hepatosplenomegaly Extremities: Moves all extremities, no edema Neuro: A&O x3, Skin: intact, no lesions noted Results & Data Results & Data Vital Signs (Past 12 Hours) Vital Signs Temp Pulse Resp BP Pulse Ox O2 Del Method 10/16/24 09:00 Room Air 10/16/24 07:29 98.2 F 62 16 116/72 98 Room Air PG Care Time/CCT Total # of Minutes Spent Total Time Spent with Patient: Total time spent is greater than 50% in coordination of care (as documented) at patient's floor/unit and/or counseling patient: Coding Level of Care Code 32710 SUB INP/OBS CARE 2/35MIN Diagnoses COVID-19 U07.1 Acute dehydration E86.0 Generalized weakness R53.1
--- NOTE | 2024-10-17 11:04 | Hospitalist Progress Note ---
Date of Service October 17, 2024 Assessment & Plan (1) COVID-19: (2) Acute dehydration: (3) Generalized weakness: Plan 78 year old female with past medical history of HLD (diet controlled, hypertension, pelvic prolapse, vitamin D/B12 deficiency presents to the ER with generalized weakness, ear pain and sore throat. Recent admission from - 10/12 for COVID-19, at that time she was recommended to go to rehab but refused and was discharged home. chest x-ray on admission without acute process, bio fire does again show positive for COVID-19. #COVID-19 / generalized weakness No hypoxia, remedesivir given last admission Supportive care: mucinex, IS PT/OT - Recommend rehab, patient is now agreeable, CM following #Right ear pain and sore throat Lozenges for throat, throat culture with normal juan carlos Debrox for ear wax add Cepacol mouth spray as needed #HTN Continue atenolol and lisinopril VTE Prophylaxis - Lovenox 40mg SQ daily Disposition - continued inpatient stay Daughter updated by phone 10/16 & 10/17 Admission and Anticipated Discharge Date Admission Date: October 15, 2024 Supervising Physician Co-Signing Physician Notes PA Supervision Note: I did not personally see or examine the patient today, but I verified all cartwright p oints of TACO Pedraza's assessment and plan with the following exceptions/additions: None Subjective Patient seen sitting up in the chair, reports "feeling like she got hit by a truck" reports productive cough and sore throat denies fevers or chills Review of Systems Review of Systems: All systems reviewed & are unremarkable except as noted in Subjective Physical Exam Physical Exam: General: NAD, VS as above HEENT: Mucosal membranes moist, no erythema or plaques to oropharynx Resp: normal respiratory effort, lungs with rhonchi in the bases CV: RRR, no murmur, Abd: normal bowel sounds, non tender, no hepatosplenomegaly Extremities: Moves all extremities, no edema Neuro: A&O x3, Skin: intact, no lesions noted Results & Data Results & Data Vital Signs (Past 12 Hours) Vital Signs Temp Pulse Resp BP Pulse Ox O2 Del Method 10/17/24 10:15 98 10/17/24 08:30 Room Air 10/17/24 07:53 98.1 F 56 L 16 147/79 H 93 Room Air 10/17/24 00:57 Room Air PG Care Time/CCT Total # of Minutes Spent Total Time Spent with Patient: Total time spent is greater than 50% in coordination of care (as documented) at patient's floor/unit and/or counseling patient: Coding Level of Care Code 66119 SUB INP/OBS CARE 2/35MIN Diagnoses COVID-19 U07.1 Acute dehydration E86.0 Generalized weakness R53.1
[2024-10-17] MEDS: CHLORASEPTIC (PHENOL) 1.4% SOLN 180 ML BTL MT PRN (12:38)
[2024-10-17] MEDS: guaiFENesin 600 MG TABCR PO SCH (12:38)
--- NOTE | 2024-10-18 12:50 | Hospitalist Progress Note ---
Date of Service October 18, 2024 Assessment & Plan (1) COVID-19: (2) Acute dehydration: (3) Generalized weakness: Plan 78 year old female with past medical history of HLD (diet controlled, hypertension, pelvic prolapse, vitamin D/B12 deficiency presents to the ER with generalized weakness, ear pain and sore throat. Recent admission from - 10/12 for COVID-19, at that time she was recommended to go to rehab but refused and was discharged home. chest x-ray on admission without acute process, bio fire does again show positive for COVID-19. #COVID-19 / generalized weakness No hypoxia, remedesivir given last admission Supportive care: mucinex, IS PT/OT - Recommend rehab, plan for [facility] tomorrow if auth is obtained #Right ear pain and sore throat Lozenges for throat, throat culture with normal juan carlos Debrox for ear wax add Cepacol mouth spray as needed #HTN Continue atenolol and lisinopril VTE Prophylaxis - Lovenox 40mg SQ daily Disposition - continued inpatient stay Daughter updated by phone 10/16 & 10/17 Admission and Anticipated Discharge Date Admission Date: October 15, 2024 Supervising Physician Co-Signing Physician Notes PA Supervision Note: I did not personally see or examine the patient today, but I verified all cartwright points of TACO Pedraza's assessment and plan with the following exceptions/additions: None Subjective Patient seen sitting up in bed. Reports that she is feeling a little bit better had jello for lunch and that helped with her throat Review of Systems Review of Systems: All systems reviewed & are unremarkable except as noted in Subjective Physical Exam Physical Exam: General: NAD, VS as above Resp: normal respiratory effort, lungs diminished in the bases CV: RRR, no murmur, Abd: soft, non tender Extremities: Moves all extremities, no edema Neuro: A&O x3, Skin: intact, no lesions noted Results & Data Results & Data Vital Signs (Past 12 Hours) Vital Signs Temp Pulse Resp BP Pulse Ox O2 Del Method 10/18/24 07:25 Room Air 10/18/24 07:25 98.1 F 59 L 18 135/86 96 Room Air PG Care Time/CCT Total # of Minutes Spent Total Time Spent with Patient: Total time spent is greater than 50% in coordination of care (as documented) at patient's floor/unit and/or counseling patient: Coding Level of Care Code 48197 SUB INP/OBS CARE Diagnoses COVID-19 U07.1 Acute dehydration E86.0 Generalized weakness R53.1
[2024-10-18 15:37] VITALS: RESP 16
[2024-10-19 07:41] VITALS: BP 113/69; PULSE 56; TEMP 98.6; O2SAT 95
--- NOTE | 2024-10-19 09:37 | Discharge Summary ---
Discharge Summary Date of Service October 19, 2024 Principal Dx & Hospital Course #1 = Principal Diagnosis (1) COVID-19: (2) Acute dehydration: (3) Generalized weakness: Plan #COVID-19 / generalized weakness 78 year old female with past medical history of HLD (diet controlled), hypertension, pelvic prolapse, vitamin D/B12 deficiency presents to the ER with generalized weakness, ear pain and sore throat. Recent admission from - 10/12 for COVID-19, at that time she was recommended to go to rehab but refused and was discharged home. chest x-ray on admission without acute process, bio fire does again show positive for COVID-19. remained stable on room air, treated with supportive care given the fact she had steroids and remedesivir last admission. Continue mucinex for 5 days. PT/OT eval and rec rehab, patient agreeable this time and discharged to [facility]. #Right ear pain and sore throat throat culture with normal juan carlos. Supportive care with cough drops, cepacol mouth spray, popsicles, etc. #HTN-Continue atenolol and lisinopril Dispo: discharge to [facility] today Notes For Next Care Provider Medication Changes From Visit mucinex BID x 5 days Admission HPI Per Admitting Provider Mell Olivier is a 78 year old female who presents to the ER wth shortness of breath and generalized weakness. She was recently admitted from October 08 - October 12, 2024 with COVID-19 pneumonia treated with with Remdesivir and dexamethasone. Procalcitonin was positive and she was also treated with ceftriaxone and azithromycin to cover for bacterial pneumonia and possible UTI (subsequent culture was contaminated). Last PT note reports continuing rehab in hospital and declined home health on discharge. She reports she was initially doing well but became progressively more short of breath, decreased appetite and generally weak that she doesn't feel safe at home at the current time. Also having right ear pain and sore throat. Non-productive cough. No calf swelling or pain. Discharge Exam General: NAD, VS as above, sitting up in bed, hoarse voice Resp: normal respiratory effort, lungs diminished in the bases CV: RRR, no murmur, Abd: soft, non tender Extremities: Moves all extremities, no edema Neuro: A&O x3, Skin: intact, no lesions noted Discharge Plan Discharge Items Patient Disposition: Transfer [facility] Reason For Visit: COVID-19,GENERALIZED WEAKNESS Discharge Diagnosis: weakness Activity: As commented below Activity Comment: work with therapy to get stronger Non-emergency contact: Primary Care Provider Call non-emergency contact if: you have any medication questions, your symptoms worsen, your pain is not controlled and your temperature is above 101 Follow-up/Referrals: Antonia Sue MD [Primary Care Provider] - (follow up after discharge from rehab ) Diet: Regular Addtl Attending Provider Instructions: Ms. Olivier, You were hospitalized after being weak and short of breath at home. This was found to be sequela from your recent hospitalization from [facility]. Thankfully, your symptoms have started to improve with supportive care. You were evaluated by physical therapy and occupational therapy who recommended a short rehab stay and you will be going to [facility] to complete this. You can continue to do supportive care for you sore throat/symptoms including mucinex, cough drops and throat spray. No changes to your home medications, please follow up with your PCP after discharge from rehab. Take Care! Pending Studies at Discharge: No Stand-Alone Forms: My [facility] Skilled Items Patient informed of condition?: Yes DNR: No Discharge Level of Care: Skilled Communicable Disease: No Discharge Prognosis: Stable Lines: None Urinary Catheter: No Medications and DC Order Prescriptions: New Sore Throat (phenol) 1.4 % Aerosol,[place] 2 spray MT Q1H PRN (Reason: sore throat) Qty: 30 0RF Cepacol Sore Throat (irene-men) 15-3.6 mg Lozenge 1 antonella buccal Q2H PRN (Reason: sore throat) Qty: 10 0RF guaifenesin [Mucinex] 600 mg Tablet Extended Release 12hr 1,200 mg PO Q12 Qty: 10 0RF Continued loperamide [Imodium A-D] 2 mg tablet 2 mg PO Q6H PRN (Reason: loose stool) Qty: 30 0RF lisinopril 20 mg tablet 20 mg PO QAM Qty: 90 3RF cranberry extract 500 mg Capsule 500 mg PO QAM Rx Instructions: administer with meals triamcinolone acetonide 0.1 % cream 1 applic topical BID PRN (Reason: Skin Irritation) atenolol 25 mg Tablet 25 mg PO QAM 30 Days Qty: 30 0RF Changed acetaminophen 500 mg Capsule 1,000 mg PO Q8H PRN (Reason: Pain) Qty: 0 0RF Discharge Orders: Discharge Order (Routine); Ordered 10/19/24 Ordered By: Blessing Pedraza Admission Data Admit Date/Time: 10/15/24 21:44 Attending Provider: Su Meza Admit Provider: Alfred Barrett Primary Care Provider: Antonia Sue Other Providers: Alfred Barrett; [facility] Other Interventions: Discharge Summary Assessment (RN) Last Done: 10/19/24 14:52 Hospital Stay Data Consultations 10/15/24 21:11 ED Decision to Admit Stat Diagnostic Imagining Performed Chest X-Ray 10/15/24 18:55 Chest radiograph, one view History: Infection Comparison: 10/10/2024 Findings: Single AP view of the chest performed. No focal consolidation or pleural effusion. No pneumothorax. The cardiomediastinal silhouette is within normal limits. Normal pulmonary vascularity. No evidence for lymphadenopathy. No visualized bony or soft tissue abnormality. Severe degenerative change of the shoulder joints. There are multilevel degenerative changes of the thoracic spine. Surgical clips at the right axilla. Impression: No acute process Electronically signed by Jose Ramon Cao 10-15-2024 7:50 PM Pending Results Patient Have Any Pending Studies at Discharge: No Discharge Instructions Given to Patient (Per Discharging Provider) Ms. Olivier, Julian were hospitalized after being weak and short of breath at home. This was found to be sequela from your recent hospitalization from [facility]. Thankfully, your symptoms have started to improve with supportive care. You were evaluated by physical therapy and occupational therapy who recommended a short rehab stay and you will be going to [facility] to complete this. You can continue to do supportive care for you sore throat/symptoms including mucinex, cough drops and throat spray. No changes to your home medications, please follow up with your PCP after discharge from rehab. Take Care! Supervising Physician Co-Signing Physician Notes PA Supervision Note: I did not personally see or examine the patient today, but I verified all cartwright points of TACO Pedraza's assessment and plan with the following exceptions/additions: None Total Time Total Time Spent Total Time Spent (In Minutes): Time spent day of discharge 32 minutes including direct patient care, medication reconciliation, documentation, review of labs and images, and coordination of care. Discussed with CM Coding Level of Care Code 85686 INP/OBS DISCH >30 MIN Diagnoses COVID-19 U07.1 Acute dehydration E86.0 Generalized weakness R53.1
== END 2024-10-19 15:51 | DRG 179 ==
LOC: ED 18:47 → SUATTDRO 21:44 → INTOOBSV 21:44 → 3E 21:44